=== PATIENT | female | born 1965 | race Caucasian/White ===

== ENCOUNTER 2024-06-11 06:35 | Inpatient (IN) ==
--- OUTSIDE RECORDS SUMMARY | 2024-06-11 06:39 | External Medical Summary | Summary of Care ---
Author Name Unknown Organization [facility] Address [address] [place] [address] Phone [phone] Care Team Providers Care Field Artillery Senior Sergeant Name Role Phone Jenn Pizarro MD Primary Care Provider + Reason for Visit * Reason Comments NEW PATIENT Cyst LLL * Evaluate & Treat - Unlimited Visits (Within 30 days (routine)) - Authorized Specialty Diagnoses / Procedures Referred By Kailey hernadez Referred To Contact Ophthalmology Diagnoses Eyelid disorder Oksana Chapin, OD [address] Hughes [address] [place] [address] Referral ID Status Reason Start Date Expiration Date Visits Requested Visits Authorized [id number] Authorized Specialty Services Required 05/03/2024 [id number] Encounter Details Date Type Department Care Team (Late st Contact Info) Description 05/10/2024 7:30 AM EDT Office Visit [address] [address] Arnoldo Marino, [address] [place] [phone] EIC (epidermal inclusion cyst)* Allergies Active Allergy Reactions Criticality Noted Date Comments Aspirin 08/02/2002 hives Cephalosporins 06/24/2003 Mefoxin Codeine Other (Please comment) 03/27/2013 Chest pain, vomiting Diclofenac Sodium 05/12/2010 Benzyl alcohol Difficulty breathing Gluten Other (Please comment) 10/20/2012 GI upset Latex Rash 05/17/2006 Rash turns to hives if does wash off Lubiprostone 08/24/2007 amitiza SOB/shakiness/vom iting Morphine And Codeine 08/02/2002 lorcet and codeine Omeprazole Hives,Nausea/vomitin g, Other (Please comment) 02/02/2022 Chest pain Oxycodone 07/03/2015 Penicillins 08/02/2002 hives Prednisone Diarrhea,Nausea/vomi ti ng,Psych complications 12/24/2016 Causes change in mental status Pantoprazole Sodium Sesquihydrate 09/17/2009 Chest discomfort, stomach cramping, rash on arms Sulfa Antibiotics 08/02/2002 rash documented as of this encounter (statuses as of 05/10/2024) Medications Medication Sig Dispensed Refills Start Date End Date Status LORATADINE 10 MG PO TABS Take by mouth. 06/25/2013 Active Spacer/Aero-Holding Chambers (AEROCHAMBER PLUS FLOW VU) inhaler Use as directed with your inhaler. 1 Each 10/16/2019 Active Acetaminophen 325 MG Oral Tablet (Tylenol) Take 2 Tabs by mouth every 6 hours as needed for Pain, Mild. 100 Tab 3 10/08/2020 Active SUMAtriptan Succinate 25 MG Oral Tablet (Imitrex)Indications:I ntractable migraine with aura without status migrainosus Take 2 tablets at onset of migraine and one tablet every 2 hours as needed, not more than 5 tablets in 24 hours 6 Tablet 11 05/25/2023 Active ProAir HFA 108 (90 Base) MCG/ACT Inhalation Aerosol SolutionIndications:Mi ld intermittent extrinsic asthma without complication Inhale 2 Puffs by mouth in the morning and 2 Puffs at noon and 2 Puffs in the evening and 2 Puffs before bedtime. 18 g 5 01/12/2024 Active Hospital, Clinic, or Other Facility Administered Medication Ordered Dose Route Frequency Start Date End Date Status lidocaine-epinephrine 2 %-1:536522 inj 100 mgIndications:EIC (epidermal inclusion cyst) 100 mg SC ONCE 05/10/2024 05/10/2024 Ended Erythromycin ophthalmic ointmentIndications:EIC (epidermal inclusion cyst) LEFT EYE ONCE 05/10/2024 05/10/2024 Ended documented as of this encounter (statuses as of 05/10/2024) Active Problems Problem Noted Date Diagnosed Date Trigger middle finger of left hand 04/20/2023 Pain of left hand 06/22/2022 Dupuytren's disease of palm 05/11/2022 Trigger index finger of left hand 12/30/2021 Sacroiliitis 10/16/2019 PAT (paroxysmal atrial tachycardia) 06/25/2019 Palpitations 06/25/2019 Hereditary hemochromatosis 10/12/2018 S/P spinal surgery 04/05/2017 Cervical spinal stenosis 04/05/2017 Hemochromatosis 09/17/2014 Protruded cervical disc 08/21/2012 NONALLERGIC RHINITIS 01/04/2006 Deviated nasal septum 01/04/2006 ADVANCE DIRECTIVE INFORMATION 10/07/2005 Overview: No, Advance Directive brochure offered , patient declined. Irritable bowel syndrome Endometriosis Allergic asthma documented as of this encounter (statuses as of 05/10/2024) Resolved Problems Problem Noted Date Diagnosed Date Resolved Date Asthma with severity to be determined 01/04/2006 02/08/2013 Overview: ICD-10 update of inactive term documented as of this encounter (statuses as of 05/10/2024) Immunizations Name Administration Dates Next Due COVID-19 mRNA, LNP-s, No Pre serve, 2-Dose Series (Pfizer) 11/08/2020,10/18/2020 HEPATITIS B VACCINE, RECOMB, 20 MCG/ML, ADULT (HEPLISAV-B) 12/21/2022,11/23/2022 PPD 02/05/2008 Pneumococcal Conjugate Vacci ne, 20-valent ([id number]) 11/23/2022 Pneumococcal Polysaccharide PPV23 (Pneumovax) 06/18/2009 Seasonal Influenza Vac., MDV , IM, 0.5 mL (Fluzone) 04/16/2015,06/20/2014,04/23/2013,06/06,07/05/2011,06/29/2010,08/04/2009 ,07/17/2007,07/18/2006 Seasonal Influenza Virus Vac cine, Unspecified Formulation 06/25/2020,07/19/2019,05/30/2018,10/07,06/20/2014,04/23/2013,06/06/2012 ,07/05/2011,06/29/2010,08/04/2009,07/01,07/18/2006 Seasonal Influenza, PF, 6 M & above, IM , (FluLaval or Fluzone) 06/25/2020,07/19/2019,05/30/2018 Seasonal Influenza, Quadriva lent, No Preserve, Mdck 10/07/2017 TD, Preservative Free 05/30/2018 TDAP (age 10 and older)(Boostrix) 05/30/2018 TDAP, Age 7 and older, IM (Adacel) 02/05/2008 Zoster Vaccine Recombinant (Shingrix) 10/16/2019 ,07/19/2019 documented as of this encounter Social History Tobacco Use Types Packs/Day Years Used Date Smoking Tobacco: Former Cigarettes 0.5 4 0 08/01/1984 - 08/01/1988 Smokeless Tobacco: Never Comments:no passive smoke ex posures at home Alcohol Use Standard Drinks/Week Comments No 0 (1 standard drink = 0.6 oz pur e alcohol) PHQ-2 Answer Date Recorded PHQ Adult Total Score 2 12/21/2022 Hunger Vital Sign Answer Date Recorded Within the past 12 months, y ou worried that your food would run out before you got the money to buy more. Never true 12/22/19 23 Within the past 12 months, t he food you bought just didn't last and you didn't have money to get more. Never true 12/21/2022 Sex and Gender Information Value Date Recorded Sex Assigned at Female 07/19/2019 10:30 AM EST Gender Identity Female 07/19/2019 10:30 AM EST Sexual Orientation Straight 07/19/2019 10 :30 AM EST Job Start Date Occupation Industry Not on file Not on file Not on file documented as of this encounter Progress Notes * Arnoldo Marino, - 05/10/2024 8:19 AM EDT Ani Atkins is a 58 year old female who presents for left eye lower eyelid evaluation. Patient reports a spot in her central left eye lower lid that has gotten larger than smaller waxes and waneswith time patient reports some scale and scabbing to the area because she chronically picks at it wanted it off. Ophthalmology Past History: glasses Ophthalmology Family History: none Ophthalmology ROS: Positive for lesion left lower lid and no recent significant change in vision,noeye pain, redness, discharge,no diplopia Current Ophthalmic Medications: None EXAM: Base Eye Exam Visual Acuity (Snellen - Linear) Right Left Dist cc 20/25 -1 20/30 Correction: Glasses Pupils Shape React APD Right Round Brisk None Left Round Brisk None Extraocular Movement Right Left Full Full Neuro/Psych Oriented x3: Yes Slit Lamp and Fundus Exam Slit Lamp Exam Right Left Lids/Lashes Normal Central lower lid lateral to midline with a small epidermal inclusion cyst Conjunctiva/Sclera White and quiet White and quiet Cornea Clear Clear Anterior Chamber Deep and quiet Deep and quiet Iris Round and reactive Round and reactive Lens NS NS IMPRESSION: 1. Apparent epidermal inclusion cyst left eye lower lid no aggressive features no loss of architecture PLAN: 1. Name: Ani Atkins Date: 05/10/2024 Outpatient Procedure Note: Pre op diagnosis: lesion of the left eye lower eyelid Post op Daignosis: same Procedure: excision of lesion left eye lower lid Surgeon: Jamila Anesthesia: 2% lidocaine with epinephrine 1:100k 1.0cc Complications: None EBL: none Drains: NONE Urine: NONE IVF: NONE Specimen: None Procedure: the patient was escorted to the procedure room where a time out was performed to identify the patient and verify the procedure. Alciane was instilled in the eye. A 30 gauge needle was used to introduce lidocaine under the lesion externally in the left eye lower eyelid. the patient was prepped and draped in routine aseptic fashion. The lesion was excised at the base with fabiana scissors. Hemostasis achieved with hot tip cautery. Emycin ointment applied. Recommend f/u PRN. Blood loss minimal . NO complications. Escorted from the procedure room. DO Arnoldo Min DO documented in this encounter Nursing Notes * Gloria Stanley RN - 05/10/2024 8:25 AM EDT Procedure completed without incident. Patient tolerated procedure well. Instructions reviewed with patient by Dr. Marino. Patient discharged from procedure room. * Gloria Stanley RN - 05/10/2024 8:24 AM EDT Patient admitted to procedure room at 8:00 AM and identified by full name and date of . Is patient on blood thinners? No. The operative team (Dr. Marino), along with Ms. Atkins, reviewed that she presents today for excision of lesion of left lower eyelid. Ms. Atkins agrees with the procedure and operative site. The correct operative site was marked and verified by the operative team. Ms. Atkins signed the surgical consent form as witnessed by the operative team. Patient prepped and drapped by Dr. Marino. * Gloria Stanley RN - 05/10/2024 7:22 AM EDT Ani Atkins is a 58 year old female who presents for cyst LLL. Last Visit: Visit date not found (in office), Visit date not found (telemedicine) She currently states area LLL present for the last several months. The last month has been getting worse. Are you diabetic? No Current Ophthalmic Medications: None Referred by: Dr. Chapin ([place]) [place], IOP, current eyeglass Rx, and pupil check and dilation if needed can be found in ophth exam. documented in this encounter Plan of Treatment Upcoming Encounters Date Type Department Care Team (Late st Contact Info) Description 08/14/2024 10:00 AM EST Laboratory Laboratory [facility] State Jade Olivares [address] [phone] [facility] [address] [place] [address] [address] 12/11/2024 3:15 PM EDT Office Visit Hematology/Oncology [place] Day [address] [phone] Delano Pizarro MD [address] [facility] [place] [address] 01/15/2025 7:40 AM EDT Office Visit General Internal Medicine [place] Day [address] [place], [place] [address] Jenn Pizarro MD [address] [facility] [place] [address] Scheduled Procedures Name Priority Associated Diagnoses Date/Ti me COLONOSCOPY FLEXIBLE PROXIMA L DIAGNOSTIC Recall Encounter for screening colonoscopy Health Maintenance Due Date Last Done Comments Cologuard 11/10/2012 Fecal Occult Blood Test 11/10/2012 Sigmoidoscopy 11/10/2012 Mammogram 12/09/2023 12/08/2022, 06/01, 11/06/2018, Additional history exists Depression Screening 12/22/2023 12/21/2022 COVID-19 Vaccine ( season) 2024 11/08/2020, 10/18/2020 Influenza Vaccine (FLU shot) (#1) 2024 06/25/2020, 06/25/2020, 07/19/2019, Additional history exists Diabetes Screening 05/08/2027 05/08/2024, 0 12/02/2021, 03/02/2021, Additional history exists Lipid Panel 11/24/2027 11/23/2022, 08/0 09/2020, 05/31/2018, Additional history exists DTap/Tdap Vaccines (4 - Td or Tdap) 05/30/2028 05/30/2018, 05/30/2018, 02/05/2008 Colonoscopy 09/04/2028 09/04/2018, 10/2018, 05/21/2011 Colorectal Cancer Screening 09/04/2028 Zoster Vaccines Completed 10/16/2019, 07/19/2019 Pneumococcal Vaccine: Pediatrics (0 to 5 Years) and At-Risk Patients (6 to 64 Years) Completed 11/23/2022, 06/18/2009 Hepatitis B Vaccine Completed 12/21/2022, 3 HPV (Gardasil) Vaccine Aged Out No lo nger eligible based on patient's age to complete this topic MENINGOCOCCAL (MENACTRA/MENVEO) Aged Out No longer eligible based on patient's age to complete this topic documented as of this encounter Medical Devices Not on filedocumented as of this encounter Visit Diagnoses Diagnosis EIC (epidermal inclusion cyst)- Primary Sebaceous cyst documented in this encounter Administered Medications Inactive Administered Medications - up to 3 most recent administrations Medication Order MAR Action Action Date Dose Rate Site Erythromycin ophthalmic ointment Left eye, ONCE, On Emily 05/10/24 at 0900, For 1 dose Given 05/10/2024 8:26 AM EDT 1 g Eye Left lidocaine-epinephrine 2 %-1:027704 inj 100 mg 100 mg (5 mL), Subcutaneous, ONCE, On Emily 05/10/24 at 0900, For 1 dose Given 05/10/2024 8:26 AM EDT 100 mg Eye L eft documented in this encounter Care Teams Field Artillery Senior Sergeant Relationship Specialty Start Date End Date Jenn Pizarro MD [address] [facility] [place] [address] PCP - General Internal Medicine 09/21/12 documented as of this encounter
--- OUTSIDE RECORDS SUMMARY | 2024-06-11 06:39 | External Medical Summary | Summary of Care ---
Author Name Unknown Organization [facility] Address [address] [place] [address] Phone [phone] Care Team Providers Care Food Writer Name Role Phone Jenn Pizarro MD Primary Care Provider + Reason for Visit * Reason Comments NEW PATIENT Cyst LLL * Evaluate & Treat - Unlimited Visits (Within 30 days (routine)) - Authorized Specialty Diagnoses / Procedures Referred By Kailey hernadez Referred To Contact Ophthalmology Diagnoses Eyelid disorder Oksana Chapin, OD [address] Hughes [address] [place] [address] Referral ID Status Reason Start Date Expiration Date Visits Requested Visits Authorized [id number] Authorized Specialty Services Required 05/03/[phone] Encounter Details Date Type Department Care Team (Late st Contact Info) Description 05/10/2024 7:30 AM EDT Office Visit [address] [address] Arnoldo Marino, [address] [place] [address] EIC (epidermal inclusion cyst)* Allergies Active Allergy [...] Start Date End Date Status lidocaine-epinephrine 2 %-1:445890 inj 100 mgIndications:EIC (epidermal inclusion cyst) 100 [...] PPD 02/05/2008 Pneumococcal Conjugate Vacci ne, 20-valent ([id number]) 11/23/2022 Pneumococcal Polysaccharide PPV23 (Pneumovax) 06/18/2009 Seasonal [...] Description 08/14/2024 10:00 AM EST Laboratory Laboratory [facility] State Jade Olivares [address] [place] [phone] [facility] [address] [place] [address] 12/11/2024 3:15 PM EDT Office Visit Hematology/Oncology [place] Day [address] [phone] Delano Pizarro MD 200 [facility] [place] [address] 01/15/2025 7:40 AM EDT Office Visit General Internal Medicine [place] Day [address] [place], [place] [address] Jenn Pizarro MD [address] [facility] [place] [address] Scheduled Procedures Name Priority Associated Diagnoses Date/Ti [...] EDT 1 g Eye Left lidocaine-epinephrine 2 %-1:799269 inj 100 mg 100 mg (5 mL), Subcutaneous, ONCE, On Emily 05/10/24 at 0900, For 1 dose Given 05/10/2024 8:26 AM EDT 100 mg Eye L eft documented in this encounter Care Teams Food Writer Relationship Specialty Start Date End Date Jenn Pizarro MD [address] [facility] [place] [address] PCP - General Internal Medicine 09/21/12 documented as of this encounter
--- OUTSIDE RECORDS SUMMARY | 2024-06-11 06:39 | External Medical Summary | Summary of Care ---
Author Name Unknown Organization [facility] Address [address] [place] [address] Phone [phone] Care Team Providers Care Cupola Worker Name Role Phone Jenn Pizarro MD Primary Care Provider + Reason for Visit * Reason Comments NEW PATIENT Cyst LLL * Evaluate & Treat - Unlimited Visits (Within 30 days (routine)) - Authorized Specialty Diagnoses / Procedures Referred By Kailey hernadez Referred To Contact Ophthalmology Diagnoses Eyelid disorder Oksana Chapin, OD [address] Hughes [address] [place] [phone] Referral ID Status Reason Start Date Expiration Date Visits Requested Visits Authorized [id number] Authorized Specialty Services Required 05/03/[phone] Encounter Details Date Type Department Care Team (Late st Contact Info) Description 05/10/2024 7:30 AM EDT Office Visit [address] [address] Arnoldo Marino, [address] [place] [address] EIC (epidermal inclusion cyst)* Allergies Active Allergy [...] Start Date End Date Status lidocaine-epinephrine 2 %-1:067123 inj 100 mgIndications:EIC (epidermal inclusion cyst) 100 [...] PPD 02/05/2008 Pneumococcal Conjugate Vacci ne, 20-valent ([id number]) 11/23/2022 Pneumococcal Polysaccharide PPV23 (Pneumovax) 06/18/2009 Seasonal [...] Description 08/14/2024 10:00 AM EST Laboratory Laboratory [facility] State Jade Olivares [address] [phone] [facility] [address] [place] [address] [address] 12/11/2024 3:15 PM EDT Office Visit Hematology/Oncology [place] Day [address] [phone] Delano Pizarro MD 200 [facility] [place] [address] 01/15/2025 7:40 AM EDT Office Visit General Internal Medicine [place] Day [address] [place], [place] [address] Jenn Pizarro MD [address] [facility] [place] [address] Scheduled Procedures Name Priority Associated Diagnoses Date/Ti [...] EDT 1 g Eye Left lidocaine-epinephrine 2 %-1:912307 inj 100 mg 100 mg (5 mL), Subcutaneous, ONCE, On Emily 05/10/24 at 0900, For 1 dose Given 05/10/2024 8:26 AM EDT 100 mg Eye L eft documented in this encounter Care Teams Cupola Worker Relationship Specialty Start Date End Date Jenn Pizarro MD [address] [facility] [place] [address] PCP - General Internal Medicine 09/21/12 documented as of this encounter
--- OUTSIDE RECORDS SUMMARY | 2024-06-11 06:40 | External Medical Summary ---
Author Name Unknown Address Unknown Organization K01:[facility] [address] [facility] [address] [place] [address] Laboratory Report Ordering Provider Test Date Status DELORES WARD 05/08/2024 13:52:14 Final Observation Date Value Abnormality Reference (Units ) Status Lipase 05/08/2024 13:52:14 27 13-60 (U/L ) Final Performing Location [facility] [address] [place] [address]
--- OUTSIDE RECORDS SUMMARY | 2024-06-11 06:40 | External Medical Summary ---
Author Name Unknown Address Unknown Organization K09:[facility] [place] [address] Laboratory Report Ordering Provider Test Date Status DELORES MALHOTRA 05/04/2024 08:03:04 Final Observation Date Value Abnormality Reference (Units ) Status WBC, Total 05/04/2024 08:03:04 4.66 4.00-10.8 0 (K/uL) Final RBC 05/04/2024 08:03:04 4.54 3.85-5.15 (M/uL) Final Hemoglobin 05/04/2024 08:03:04 14.8 12.0-15.3 (g/dL) Final HCT 05/04/2024 08:03:04 43.6 36.0-45.2 (%) Final MCV 05/04/2024 08:03:04 96.0 81.5-97.5 (fL) Final MCH 05/04/2024 08:03:04 32.6 27.0-34.0 (pg) Final MCHC 05/04/2024 08:03:04 33.9 32.0-36.0 (g/dL) Final RDW 05/04/2024 08:03:04 12.4 11.5-15.5 (%) Final Platelets 05/04/2024 08:03:04 202 140-400 (K /uL) Final MPV 05/04/2024 08:03:04 10.8 6.6-11.1 ( fL) Final Performing Location [facility] [place] [address]
--- OUTSIDE RECORDS SUMMARY | 2024-06-11 06:40 | External Medical Summary | Summary of Care ---
Author Name Unknown Organization [facility] Address [address] [place] [address] Phone [phone] Care Team Providers Care Legend Maker Name Role Phone Jenn Pizarro MD Primary Care Provider + Reason for Referral * Precert (Within 24 hrs (call dept; emergent)) - Pending Review Specialty Diagnoses / Procedures Referred By Contac t Referred To Contact Radiology Diagnoses Abdominal pain, epigastric Procedures CT ABD/PELVIS WO IV/ORAL CONTRAST Jenn Pizarro MD 200 [facility] [place] [address] Referral ID Status Reason Start Date Expiration Date V isits Requested Visits Authorized [id number] Pending Review 05/08/2024 999 999 Reason for Visit * Reason Comments Pain Encounter Details Date Type Department Care Team (Late st Contact Info) Description 05/08/2024 1:20 PM EDT Office Visit General Internal Medicine [facility] [place] [address] [place] [address] Jenn Pizarro MD [address] [place] [address] Abdominal pain, epigastric* Allergies Active Allergy Reactions Criticality Noted Date [...] as of this encounter (statuses as of 05/08/2024) Medications Medication Sig Dispensed Refills Start Date [...] before bedtime. 18 g 5 01/12/2024 Active documented as of this encounter (statuses as of 05/08/2024) Active Problems Problem Noted Date Diagnosed Date [...] as of this encounter (statuses as of 05/08/2024) Resolved Problems Problem Noted Date Diagnosed Date Resolved Date Asthma with severity to be determined 01/04/2006 02/08/2013 Overview: ICD-10 update of inactive term documented as of this encounter (statuses as of 05/08/2024) Immunizations Name Administration Dates Next Due COVID-19 mRNA, LNP-s, No Pre serve, 2-Dose Series ([employer] Recreation) 11/08/2020,10/18/2020 HEPATITIS B VACCINE, RECOMB, 20 MCG/ML, ADULT (HEPLISAV-B) 12/21/2022,11/23/2022 PPD 02/05/2008 Pneumococcal Conjugate Vacci ne, 20-valent ([id number]) 11/23/2022 Pneumococcal Polysaccharide PPV23 (Pneumovax) 06/18/2009 Seasonal [...] on file documented as of this encounter Last Filed Vital Signs Vital Sign Reading Time Taken Comments Blood Pressure 108/66 05/08/2024 1:17 PM EDT Pulse 105 05/08/2024 1:17 PM EDT Temperature 36.7 C (98 F) 05/08/2024 1:17 PM EDT Respiratory Rate - - Oxygen Saturation 96% 05/08/2024 1:17 PM EDT Inhaled Oxygen Concentration - - Weight 72.3 kg (159 lb 4.8 oz) 05/08/2024 1:17 P M EDT Height 163.2 cm (5' 4.25") 05/08/2024 1:17 PM ED T Body Mass Index 27.13 05/08/2024 1:17 PM EDT documented in this encounter Progress Notes * Jenn Pizarro MD - 05/08/2024 1:30 PM EDT Images from the original note were not included. History of Present Illness Ani Atkins is a 58 year old female that presents for Pain Here for the acute visit. Had mod to severe upper and mid abd pain for last 3 weeks off and on. No nausea, vomitting. Pain is 8/10 on scale. No urinary s/s. Excessive gas+ No fever but chills+ Physical Exam Vitals: 05/08/24 1317 Temp: 36.7 C (98 F) Pulse: 105 SpO2: 96% BP: 108/66 BMI: 27.13 BP Readings from Last 3 Encounters: 05/08/24 108/66 05/08/24 114/74 01/12/24 90/50 Wt Readings from Last 3 Encounters: 05/08/24 72.3 kg (159 lb 4.8 oz) 01/12/24 73.2 kg (161 lb 4.8 oz) 12/15/23 73.8 kg (162 lb 9.6 oz) BMI Readings from Last 3 Encounters: 05/08/24 27.13 kg/m 01/12/24 27.47 kg/m 12/15/23 28.13 kg/m Ht Readings from Last 3 Encounters: 05/08/24 1.632 m (5' 4.25") 01/12/24 1.632 m (5' 4.25") 06/16/23 1.619 m (5' 3.75") Abd- soft, tenderness moderate in upper and mid back. No flank tenderness. I have reviewed the following results: None Assessment and Plan Abdominal pain, epigastric (Primary) - COMPREHENSIVE METABOLIC PANEL; Future; Expected date: 05/08/2024 - LIPASE; Future; Expected date: 05/08/2024 - CT ABD/PELVIS WO IV/ORAL CONTRAST Advised pt to avoid caffeine, fried fatty foods, choclates, peppermints, smoking and alcohol. Exercise and weight loss emphasized. Eat dinner 3 hours prior to bed time. ER for eval if s/s gets worse. Advised hydration. Wrap-Up Time: I spent a total of 30-39 minutes (exact time 30 mins) on the date of service in preparation, delivery, and documentation of the care provided to Ani Atkins excluding any time spent in the performance of separately billed services. documented in this encounter Nursing Notes * Leia Escoto CMA - 05/08/2024 1:16 PM EDT Patient presents today for LUQ pain for the last 2 weeks. She states she is having some swelling inthe area and it is a new pain compared to previously having LLQ pain. She denies any nausea and vomiting, is having a lot of gas. documented in this encounter Plan of Treatment Upcoming Encounters Date Type Department Care Team (Late st Contact Info) Description 05/08/2024 4:15 PM EDT Imaging Radiology [address] 132 [facility] [place] [address] 05/10/2024 7:30 AM EDT Office Visit [facility] [address] [address] Arnoldo Marino, 16 [place] [address] 08/14/2024 10:00 AM EST Laboratory Laboratory [facility] [address] [place] [phone] [facility] 200 [facility] [place] [address] 12/11/2024 3:15 PM EDT Office Visit Hematology/Oncology [facility] [address] [place] [phone] Delano Pizarro MD [address] [place] [address] 01/15/2025 7:40 AM EDT Office Visit General Internal Medicine [facility] [address] [place] [address] Jenn Pizarro MD 200 [facility] [place] [address] Pending Results Name Type Priority Associated Diagnoses Date /Time COMPREHENSIVE METABOLIC PANEL Lab Routine Abdominal pain, epigastric 05/08/2024 1:52 PM EDT LIPASE Lab Routine Abdominal pain, epigastric 05/08/2024 1:52 PM EDT Scheduled Orders Name Type Priority Associated Diagnoses Orde r Schedule COMPREHENSIVE METABOLIC PANEL Lab Routine Abdominal pain, epigastric Expected: 05/08/2024 (Approximate), Expires: 05/08/2025 LIPASE Lab Routine Abdominal pain, epigastric Expected: 05/08/2024 (Approximate), Expires: 05/08/2025 CT ABD/PELVIS WO IV/ORAL CONTRAST Medical Imaging STAT Abdominal pain, epigastric Ordered: 05/08/2024 Scheduled Procedures Name Priority Associated Diagnoses Date/Ti [...] 06/25/2020, 07/19/2019, Additional history exists Diabetes Screening 12/02/2024 12/02/2021, 0 03/02/2021, 06/02/2020, Additional history exists Lipid Panel 11/24/2027 11/23/2022, 08/0 09/2020, 05/31/2018, Additional history exists DTap/Tdap Vaccines (4 - Td or Tdap) 05/30/2028 05/30/2018, 05/30/2018, 02/05/2008 Colonoscopy 09/04/2028 09/04/2018, 02/0 10/2018, 05/21/2011 Colorectal Cancer Screening 09/04/2028 Zoster [...] as of this encounter Visit Diagnoses Diagnosis Abdominal pain, epigastric- Primary documented in this encounter Care Teams Legend Maker Relationship Specialty Start Date End Date Jenn Pizarro MD [address] [place] [address] PCP - General Internal Medicine 09/21/12 documented as of this encounter
--- OUTSIDE RECORDS SUMMARY | 2024-06-11 06:40 | External Medical Summary | Summary of Care ---
Author Name Unknown Organization [facility] Address [address] [place] [address] Phone [phone] Care Team Providers Care Grey Goods Marker Name Role Phone Jenn Pizarro MD Primary Care Provider + Reason for Visit * Reason Comments Outpatient Testing Encounter Details Date Type Department Care Team (Late st Contact Info) Description 05/08/2024 1:50 PM EDT Laboratory Laboratory [facility] [place] [address] [place] [address] [place], Lab [address] [place] [address] Abdominal pain, epigastric Allergies Active Allergy Reactions Criticality Noted Date [...] PPD 02/05/2008 Pneumococcal Conjugate Vacci ne, 20-valent ([id number]) 11/23/2022 Pneumococcal Polysaccharide PPV23 (Pneumovax) 06/18/2009 Seasonal [...] on file documented as of this encounter Plan of Treatment Upcoming Encounters Date Type Department Care Team (Late st Contact Info) Description 05/08/2024 4:15 PM EDT Imaging Radiology [address] [place] [address] 05/10/2024 7:30 AM EDT Office Visit [facility] [address] [place] [address] Arnoldo Marino T, DO [address] [place] [address] 08/14/2024 10:00 AM EST Laboratory Laboratory [facility] [address] [place] [phone] [place], Lab [facility] [address] [place] [address] 12/11/2024 3:15 PM EDT Office Visit Hematology/Oncology [facility] [address] [place] [phone] Delano Pizarro MD [address] [place] [address] 01/15/2025 7:40 AM EDT Office Visit General Internal Medicine [facility] [address] [place] [address] Jenn Pizarro MD [address] [place] [address] Pending Results Name Type Priority Associated Diagnoses Date /Time COMPREHENSIVE METABOLIC PANEL Lab Routine Abdominal pain, epigastric 05/08/2024 1:52 PM EDT LIPASE Lab Routine Abdominal pain, epigastric 05/08/2024 1:52 PM EDT Scheduled Procedures Name Priority Associated Diagnoses Date/Ti [...] Additional history exists Lipid Panel 11/24/2027 11/23/2022, 08/09/2020, 05/31/2018, Additional history exists DTap/Tdap Vaccines (4 - Td or Tdap) 05/30/2028 05/30/2018, 05/30/2018, 02/05/2008 Colonoscopy 09/04/2028 09/04/2018, 0210/2018, 05/21/2011 Colorectal Cancer Screening 09/04/2028 Zoster Vaccines [...] this encounter Visit Diagnoses Diagnosis Abdominal pain, epigastric documented in this encounter Care Teams Grey Goods Marker Relationship Specialty Start Date End Date Jenn Pizarro MD 200 [facility] [place] [address] PCP - General Internal Medicine 09/21/12 documented as of this encounter
--- OUTSIDE RECORDS SUMMARY | 2024-06-11 06:40 | External Medical Summary | Summary of Care ---
Author Name Unknown Organization [facility] Address [address] [place] [address] Phone [phone] Care Team Providers Care Video Software Engineer Name Role Phone Jenn Pizarro MD Primary Care Provider + Reason for Visit * Reason Onset Date Comments Test Results Lab 05/07/2024 Encounter Details Date Type Department Care Team (Late st Contact Info) Description 05/07/2024 Telephone Hematology/Oncology [facility] [address] [place] [address] Delano Pizarro MD [address] [facility] [address] Test Results Lab Allergies Active Allergy Reactions Criticality Noted Date [...] as of this encounter (statuses as of 05/07/2024) Medications Medication Sig Dispensed Refills Start Date [...] as of this encounter (statuses as of 05/07/2024) Active Problems Problem Noted Date Diagnosed Date [...] as of this encounter (statuses as of 05/07/2024) Resolved Problems Problem Noted Date Diagnosed Date Resolved Date Asthma with severity to be determined 01/04/2006 02/08/2013 Overview: ICD-10 update of inactive term documented as of this encounter (statuses as of 05/07/2024) Immunizations Name Administration Dates Next Due COVID-19 mRNA, LNP-s, No Pre serve, 2-Dose Series (Pfizer) 11/08/2020,10/18/2020 HEPATITIS B VACCINE, RECOMB, 20 MCG/ML, ADULT (HEPLISAV-B) 12/21/2022,11/23/2022 PPD 02/05/2008 Pneumococcal Conjugate Vacci ne, 20-valent ([id number]) 11/23/2022 Pneumococcal Polysaccharide PPV23 (Pneumovax) 06/18/2009 Seasonal [...] on file documented as of this encounter Miscellaneous Notes * Telephone Encounter - Nazia Mora LPN - 05/07/2024 1:56 PM EDT Called and spoke with patient, informed patient of test result message from provider below. She verbalized understanding and is agreeable to scheduling the phlebotomy. Patient states she is going to [place] on , patient is requesting phlebotomy tomorrow due to "feeing drained" a day after the procedure. Patient scheduled phlebotomy x 1 tomorrow at 12:00 pm. She denies any further needs or requests. * Telephone Encounter - Nazia Mora LPN - 05/07/2024 1:44 PM EDT ----- Message from Delano Pizarro MD sent at 05/07/2024 10:05 AM EDT ----- Blood workup done on 05/04/2024: - Ferritin level -> 78 - WBC 4600, H&H of 14.8/40.6, platelet count of 202,000. 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 Would like to keep the ferritin level less than 50. Repeat CBCD ferritin every 3 monthly and she should have phlebotomy if the ferritin level is above 50. documented in this encounter Plan of Treatment Upcoming Encounters Date Type Department Care Team (Late st Contact Info) Description 05/08/2024 12:00 PM EDT Hem/Onc Treatment Hematology/Oncology Located Within [facility] [address] [place] [phone] Elise, Chair 11 Hem Onc [facility] 200 [facility] [place] [address] 05/10/2024 7:30 AM EDT Office Visit [facility] [address] [place] [address] Arnoldo Marino, 16 [place] [address] 12/11/2024 3:15 PM EDT Office Visit Hematology/Oncology [facility] [address] [place] [phone] Delano Pizarro MD 200 [facility] [place] [address] 01/15/2025 7:40 AM EDT Office Visit General Internal Medicine [facility] 200 [facility] [place] [address] Jenn Pizarro MD 200 [facility] [place] [address] Scheduled Orders Name Type Priority Associated Diagnoses Orde r Schedule CBC WITH WBC DIFFERENTIAL Lab STAT Hereditary hemochromatosis (HCC) Every 3 Months for 4 Occurrences starting 05/07/2024 until 05/07/2025 FERRITIN Lab Routine Hereditary hemochromatosis (HCC) Every 3 Months for 4 Occurrences starting 05/07/2024 until 05/07/2025 Scheduled Procedures Name Priority Associated Diagnoses Date/Ti [...] as of this encounter Visit Diagnoses Diagnosis Hereditary hemochromatosis (HCC)- Primary Hereditary hemochromatosis Thrombocytopenia, congenital and hereditary (HCC) Congenital and hereditary thrombocytopenic purpura Erythrocytosis Polycythemia, secondary documented in this encounter Care Teams Video Software Engineer Relationship Specialty Start Date End Date Jenn Pizarro MD 200 [facility] [place] [address] PCP - General Internal Medicine 09/21/12 documented as of this encounter
--- OUTSIDE RECORDS SUMMARY | 2024-06-11 06:40 | External Medical Summary ---
Author Name Unknown Address Unknown Organization K01:[facility] [address] [place] [address] Laboratory Report Ordering Provider Test Date Status DELORES MALHOTRA 05/04/2024 08:03:04 Final Observation Date Value Abnormality Reference (Units ) Status Ferritin 05/04/2024 08:03:04 78 13-150 (ng /mL) Final Postmenopausal women have hi gher ferritin levels than pre-menopausal women. The above reference interval is based on pre-menopausal women. Performing Location [facility] - [address] [place] [address]
--- OUTSIDE RECORDS SUMMARY | 2024-06-11 06:40 | External Medical Summary | Summary of Care ---
Author Name Unknown Organization [facility] Address [address] [place] [address] Phone [phone] Care Team Providers Care Ophthalmic Asst Name Role Phone Sylvia Pizarro MD Primary Care Provider + Reason for Referral * Precert (Within 24 hrs (call dept; emergent)) - Pending Review Specialty Diagnoses / Procedures Referred By Contac t Referred To Contact Radiology Diagnoses Abdominal pain, epigastric Procedures CT ABD/PELVIS W IV CONTRAST - WO ORAL CONTRAST Sylvia Pizarro MD [address] [place] [address] Referral ID Status Reason Start Date Expiration Date V isits Requested Visits Authorized [id number] Pending Review 05/08/2024 999 999 * Precert (Within 24 hrs (call dept; emergent)) - Authorized Specialty Diagnoses / Procedures Referred By Contac t Referred To Contact Radiology Diagnoses Abdominal pain, epigastric Procedures CT ABD/PELVIS WO IV/ORAL CONTRAST Sylvia Pizarro MD [address] [place] [address] Referral ID Status Reason Start Date Expiration Date V isits Requested Visits Authorized [id number] Authorized Precert 05/08/2024 11/04/2024 999 999 Reason for Visit * Reason Comments Pain Encounter Details Date Type Department Care Team (Late st Contact Info) Description 05/08/2024 1:20 PM EDT Office Visit General Internal Medicine [facility] [place] [address] [place] [address] Sylvia Pizarro MD [address] [facility] [place], [place] [address] Abdominal pain, epigastric* Allergies Active Allergy Reactions [...] mRNA, LNP-s, No Pre serve, 2-Dose Series (Captalis) 11/08/2020,10/18/2020 HEPATITIS B VACCINE, RECOMB, 20 MCG/ML, ADULT (HEPLISAV-B) 12/21/2022,11/23/2022 PPD 02/05/2008 Pneumococcal Conjugate Vacci ne, 20-valent ([id number]) 11/23/2022 Pneumococcal Polysaccharide PPV23 (Pneumovax) 06/18/2009 Seasonal [...] documented in this encounter Progress Notes * Sylvia Pizarro MD - 05/08/2024 1:30 PM EDT [...] (98 F) Pulse: 105 SpO2: 96% BP: 108/ BMI: 27.13 BP Readings from Last 3 [...] lot of gas. documented in this encounter Miscellaneous Notes * Addendum Note - Sylvia Pizarro MD - 05/08/2024 3:54 PM EDTAddended by: SYLVIA PIZARRO on: 05/08/2024 03:54 PM Modules accepted: Orders documented in this encounter Plan of Treatment Upcoming Encounters Date Type Department Care Team (Late st Contact Info) Description 05/08/2024 4:15 PM EDT Imaging Radiology [facility], [address] [place] [address] Arrived 05/10/2024 7:30 AM EDT Office Visit [address] [place] [address] Arnoldo Marino, 16 [facility] [place] [address] 08/14/2024 10:00 AM EST Laboratory Laboratory [facility] [address] [place], [place] [phone] [place], [facility] 200 [facility] [place], [place] [address] 12/11/2024 3:15 PM EDT Office Visit Hematology/Oncology [facility] 200 [facility] [place], [place] [phone] Delano Pizarro MD 200 [facility] [place] [address] 01/15/2025 7:40 AM EDT Office Visit General Internal Medicine [facility] [address] [place], [place] [address] Sylvia Pizarro MD 200 [place] [address] Pending Results Name Type Priority Associated Diagnoses Date /Time LIPASE Lab Routine Abdominal pain, epigastric 05/08/2024 1:[address] ABD/PELVIS WO IV/ORAL CONTRAST Medical Imaging STAT Abdominal pain, epigastric 05/08/2024 3:34 PM EDT Scheduled Orders Name Type Priority Associated Diagnoses Orde r Schedule LIPASE Lab Routine Abdominal pain, epigastric Expected: 05/08/2024 (Approximate), Expires: 05/08/2025 CT ABD/PELVIS W IV CONTRAST - WO ORAL CONTRAST Medical Imaging STAT Abdominal pain, epigastric [...] Additional history exists Lipid Panel 11/24/2027 11/23/2022, 0809/2020, 05/31/2018, Additional history exists DTap/Tdap Vaccines (4 - Td or Tdap) 05/30/2028 05/30/2018, 05/30/2018, 02/05/2008 Colonoscopy 09/04/2028 09/04/2018, 10/2018, 05/21/2011 Colorectal Cancer Screening 09/04/2028 Zoster Vaccines Completed 10/16/2019, 07/19/2019 Pneumococcal Vaccine: Pediatrics (0 to 5 Years) and At-Risk Patients (6 to 64 Years) Completed 11/23/2022, 06/18/2009 Hepatitis B Vaccine Completed 12/21/2022, HPV (Gardasil) Vaccine Aged Out No lo nger eligible based on patient's age to complete this topic MENINGOCOCCAL (MENACTRA/MENVEO) Aged Out No longer eligible based on patient's age to complete this topic documented as of this encounter Medical Devices Not on filedocumented as of this encounter Results * (ABNORMAL) COMPREHENSIVE METABOLIC PANEL (05/08/2024 1:52 PM EDT) BUN 11 6 - 20 mg/dL 05/08/2024 3:17 PM EDT [facility] [place] [facility] CREATININE 0.8 0.5 - 1.0 mg/dL 05/08/2024 3:17 PM EDT [facility] [place] [facility] EGFR 88 >=60 mL/min 05/08/2024 3:17 PM EDT [facility] [place] [facility] Comment:eGFR is calculated b ased on the CKD-EPI 2020 equation. SODIUM 141 135 - 146 mmol/L 05/08/2024 3:17 PM EDT [facility] [place] [facility]02 POTASSIUM 4.2 3.5 - 5.1 mmol/L 05/08/2024 3:17 PM EDT [facility] 56 CHLORIDE 104 98 - 107 mmol/L 05/08/2024 3:[address] CO2 25 22 - 32 mmol/L 05/08/2024 3:[address] ANION GAP 12 7 - 15 mmol/L 05/08/2024 3:[address] GLUCOSE 101 70 - 120 mg/dL 05/08/2024 3:[address] Albumin 4.8 3.8 - 5.0 g/dL 05/08/2024 3:[address] AST 16 10 - 35 U/L 05/08/2024 3:[address] Alkaline Phosphatase 141(H) 35 - 130 U/L 05/08/2024 3:[address] Bilirubin, Total 0.4 <=1.2 mg/dL 05/08/2024 3:[address] CALCIUM 9.8 8.4 - 10.2 mg/dL 05/08/2024 3:[address] Protein 7.0 6.0 - 8.3 g/dL 05/08/2024 3:[address] ALT 14 10 - 35 U/L 05/08/2024 3:17 PM EDT [facility] 56 Blood Venous blood specimen / Unknown Venipuncture / Unknown 05/08/2024 1:52 PM EDT 05/08/2024 1:52 PM EDT Sylvia Pizarro MD LAB BLOOD ORDERA BLES [facility] 56 [facility] [id number] documented in this encounter Visit Diagnoses Diagnosis Abdominal pain, epigastric- Primary documented in this encounter Care Teams Ophthalmic Asst Relationship Specialty Start Date End Date Sylvia Pizarro MD [address] [facility] [place] [id number] PCP - General Internal Medicine 09/21/12 documented as of this encounter
--- OUTSIDE RECORDS SUMMARY | 2024-06-11 06:40 | External Medical Summary | Summary of Care ---
Author Name Unknown Organization [facility] Address [address] [place] [address] Phone [phone] Care Team Providers Care Medicare Insurance Specialist Name Role Phone Jenn Pizarro MD Primary Care Provider + Encounter Details Date Type Department Care Team (Late st Contact Info) Description 02/20/2024 Orders Only Outcomes Research Department [address] [place] [address] Elisabeth Leslie CHRA MyCode Research Other*[id number] Allergies Active Allergy Reactions Criticality Noted Date [...] as of this encounter (statuses as of 02/20/2024) Medications Medication Sig Dispensed Refills Start Date [...] as of this encounter (statuses as of 02/20/2024) Active Problems Problem Noted Date Diagnosed Date [...] as of this encounter (statuses as of 02/20/2024) Resolved Problems Problem Noted Date Diagnosed Date Resolved Date Asthma with severity to be determined 01/04/2006 02/08/2013 Overview: ICD-10 update of inactive term documented as of this encounter (statuses as of 02/20/2024) Immunizations Name Administration Dates Next Due COVID-19 mRNA, LNP-s, No Pre serve, 2-Dose Series (Pfizer) 11/08/2020,10/18/2020 Hepatitis B Vaccine, Recombi nant, Adjuvanted, 20 mcg/mL (Heplisav-B) 12/21/2022,11/23/2022 PPD 02/05/2008 Pneumococcal Conjugate Vacci ne, 20-valent ([id number]) 11/23/2022 Pneumococcal Polysaccharide PPV23 (Pneumovax) 06/18/2009 Seasonal Influenza Virus Vac cine, Unspecified Formulation 06/25/2020,07/19/2019,05/30/2018,10/07,06/20/2014,04/23/2013,06/06/2012 ,07/05/2011,06/29/2010,08/04/2009,07/01,07/18/2006 Seasonal Influenza, PF, 6 M & above, IM , (FluLaval or Fluzone) 06/25/2020,07/19/2019,05/30/2018 Seasonal Influenza, Quadriva lent, No Preserve, Mdck 10/07/2017 Seasonal Influenza, Split, I IV3, With Preserve, Inj 04/16/2015,06/20/2014,04/23/2013,06/06,07/05/2011,06/29/2010,08/04/2009 ,07/17/2007,07/18/2006 TD, Preservative Free 05/30/2018 TDAP (age 10 [...] Care Team (Late st Contact Info) Description 02/27/2024 11:00 AM EDT [facility] [address] [facility] [place] [address] Tammy Villagomez DPM [address] [facility] [place] [address] 02/29/2024 9:30 AM EDT Imaging Radiology [address] 132 [facility] [place] [address] 05/04/2024 8:00 AM EDT Laboratory Laboratory [facility] [address] [place] [id number] [place], [place] [address] [address] [place] [address] 06/19/2024 3:15 PM EST Office Visit Hematology/Oncology [facility] [address] [place] [phone] Delano Pizarro MD [address] [place] [address] 01/15/2025 7:40 AM EDT Office Visit General Internal Medicine [facility] [address] [place] [address] Jenn Pizarro MD [address] [place] [address] Scheduled Orders Name Type Priority Associated Diagnoses Orde r Schedule MYCODE SUBSEQUENT ADULT Lab Routine MyCode Research Other*[id number] Every 6 Months for 2 Occurrences starting 02/20/2024 until 03/11/2025 Scheduled Procedures Name Priority Associated Diagnoses Date/Ti me COLONOSCOPY FLEXIBLE PROXIMA L DIAGNOSTIC Recall Encounter for screening colonoscopy Health Maintenance Due Date Last Done Comments Cologuard 11/10/2012 Fecal Occult Blood Test 11/10/2012 Sigmoidoscopy 11/10/2012 COVID-19 Vaccine ( season) 2023 11/08/2020, 10/18/2020 Mammogram 12/09/2023 12/08/2022, 06/01, 11/06/2018, Additional history exists Depression Screening 12/22/2023 12/21/2022 Influenza Vaccine (FLU shot) (#1) 2024 06/25/2020, 06/25/2020, 07/19/2019, Additional history exists Diabetes Screening 12/02/2024 12/02/2021, 0 03/02/2021, 06/02/2020, Additional history exists Lipid Panel 11/24/2027 11/23/2022, 08/0 09/2020, 05/31/2018, Additional history exists DTaP,Tdap,and Td Vaccines (4 - Td or Tdap) 05/30/2028 [...] as of this encounter Visit Diagnoses Diagnosis MyCode Research Other*[id number] documented in this encounter Care Teams Medicare Insurance Specialist Relationship Specialty Start Date End Date Jenn Pizarro MD [address] [place] [address] PCP - General Internal Medicine 09/21/12 documented as of this encounter
--- OUTSIDE RECORDS SUMMARY | 2024-06-11 06:40 | External Medical Summary | Summary of Care ---
Author Name Unknown Organization [facility] Address [address] [place] [address] Phone [phone] Care Team Providers Care Printing Supervisor Name Role Phone Jenn Pizarro MD Primary Care Provider + Reason for Visit * Reason Comments Outpatient Testing Encounter Details Date Type Department Care Team (Latest Contact Info) Description 05/04/2024 8:00 AM EDT Laboratory Laboratory [facility] [place] [address] [place] [phone] [place], [address] [place] [address] Hereditary hemochromatosis (HCC) Allergies Active Allergy Reactions Criticality Noted Date [...] as of this encounter (statuses as of 05/04/2024) Medications Medication Sig Dispensed Refills Start Date [...] as of this encounter (statuses as of 05/04/2024) Active Problems Problem Noted Date Diagnosed Date [...] as of this encounter (statuses as of 05/04/2024) Resolved Problems Problem Noted Date Diagnosed Date Resolved Date Asthma with severity to be determined 01/04/2006 02/08/2013 Overview: ICD-10 update of inactive term documented as of this encounter (statuses as of 05/04/2024) Immunizations Name Administration Dates Next Due COVID-19 mRNA, LNP-s, No Pre serve, 2-Dose Series (Pfizer) 11/08/2020,10/18/2020 HEPATITIS B VACCINE, RECOMB, 20 MCG/ML, ADULT (HEPLISAV-B) 12/21/2022,11/23/2022 PPD 02/05/2008 Pneumococcal Conjugate Vacci ne, 20-valent ([id number]) 11/23/2022 Pneumococcal Polysaccharide PPV23 (Pneumovax) 06/18/2009 Seasonal [...] Description 05/10/2024 7:30 AM EDT Office Visit [address] [address] Arnoldo Marino, [address] [place] [address] 12/11/2024 3:15 PM EDT Office Visit Hematology/Oncology [facility] [address] [place] [phone] Delano Pizarro MD [address] [facility] [place] [address] 01/15/2025 7:40 AM EDT Office Visit General Internal Medicine [facility] [address] [place] [address] Jenn Pizarro MD [address] [facility] [place] [address] Pending Results Name Type Priority Associated Diagnoses Date /Time CBC WITH WBC DIFFERENTIAL Lab Routine Hereditary hemochromatosis (HCC) 05/04/2024 8:03 AM EDT FERRITIN Lab Routine Hereditary hemochromatosis (HCC) 05/04/2024 8:03 AM EDT CBC Lab Routine Hereditary hemochromatosis (HCC) 05/04/2024 8:03 AM EDT DIFFERENTIAL, AUTOMATED Lab Routine Hereditary hemochromatosis (HCC) 05/04/2024 8:03 AM EDT Scheduled Procedures Name Priority Associated Diagnoses [...] this encounter Visit Diagnoses Diagnosis Hereditary hemochromatosis (HCC) Hereditary hemochromatosis documented in this encounter Care Teams Printing Supervisor Relationship Specialty Start Date End Date Jenn Pizarro MD [address] [place] [address] PCP - General Internal Medicine 09/21/12 documented as of this encounter
--- OUTSIDE RECORDS SUMMARY | 2024-06-11 06:40 | External Medical Summary | Summary of Care ---
Author Name Unknown Organization [facility] Address [address] [place] [address] Phone [phone] Care Team Providers Care Test Cell Technician Name Role Phone Jenn Pizarro MD Primary Care Provider + Reason for Visit * Reason Comments Procedure Phlebotomy Encounter Details Date Type Department Care Team (Latest Contact Info) Description 05/08/2024 12:00 PM EDT Hem/Onc Treatment Hematology/Oncolog y Treatment, [place] [address] [place] [address] Elise, Chair 11 Hem Onc Scenery [address] [place] [address] Hemochromatosis*; Hereditary hemochromatosis (HCC) Allergies Active Allergy Reactions [...] PPD 02/05/2008 Pneumococcal Conjugate Vacci ne, 20-valent ([id number]) 11/23/2022 Pneumococcal Polysaccharide PPV23 (Pneumovax) 06/18/2009 Seasonal [...] money to buy more. Never true 12/22/19 Within the past 12 months, t he [...] Sign Reading Time Taken Comments Blood Pressure 114/74 05/08/2024 12:39 PM EDT Pulse 87 05/08/2024 12:12 PM EDT Temperature 36.5 C (97.7 F) 05/08/2024 12:12 PM E DT Respiratory Rate 18 05/08/2024 12:12 PM EDT Oxygen Saturation 98% 05/08/2024 12:12 PM EDT Inhaled Oxygen Concentration - - Weight - - Height - - Body Mass Index - - documented in this encounter Nursing Notes * Loreto Loyola, ABI - 05/08/2024 12:13 PM EDT Patient to chair 7 ambulatory Patient denies any complaints or concerns Safety and Risk for Injury Patient will remain free from injury. Ensure appropriate safety devices are available. Provide and maintain safe environment. Patient instructed on use of heat and massage functions where applicable. Patient shown how to operate the heat function of the chair and to alert nursing staff if the chair feels too warm. Patient instructed on the risk of potential shabazz while using the heat function. Goals: patient will remain free of injury Possible barriers to meeting goals: dizzy due to blood loss, increase risk of falling Stability of the patient: Moderately stable - low risk of patient condition declining or worsening Summary regarding today's goals: Met: Patient remained free of injury #18G Instye with t-extension inserted into the left AC without difficulty. Therapeutic phlebotomy performed per order. Patient tolerated procedure well. Drank cup of fluid post procedure. Encouraged to increase fluid intake. IV discontinued intact and patient discharged in stable condition. documented in this encounter Plan of Treatment Upcoming Encounters Date Type Department Care Team (Late st Contact Info) Description 05/10/2024 7:30 AM EDT Office Visit [facility] [address] [place] [address] Arnoldo Marino, [address] [place] [address] 08/14/2024 10:00 AM EST Laboratory Laboratory [facility] [place] 200 [facility] [place] [phone] [address] [place] [address] 12/11/2024 3:15 PM EDT Office Visit Hematology/Oncology [facility] [address] [facility] [place] [phone] Delano Pizarro MD [address] [facility] [address] [place] [address] 01/15/2025 7:40 AM EDT Office Visit General Internal Medicine [facility] [address] [facility] [place] [address] Jenn Pizarro MD [address] [facility] [place] [address] Scheduled Procedures Name Priority Associated Diagnoses Date/Ti [...] as of this encounter Visit Diagnoses Diagnosis Hemochromatosis- Primary Other hemochromatosis Hereditary hemochromatosis (HCC) Hereditary hemochromatosis documented in this encounter Care Teams Test Cell Technician Relationship Specialty Start Date End Date Jenn Pizarro MD [address] [place] [address] PCP - General Internal Medicine 09/21/12 documented as of this encounter
--- OUTSIDE RECORDS SUMMARY | 2024-06-11 06:40 | External Medical Summary ---
Author Name Unknown Address Unknown Organization [facility] [address] [place] [address] Laboratory Report Ordering Provider Test Date Status DELORES WARD 05/08/2024 13:52:14 Final Observation Date Value Abnormality Reference (Units ) Status BUN 05/08/2024 13:52:14 11 6-20 (mg/dL) Final Creatinine 05/08/2024 13:52:14 0.8 0.5-1.0 (mg/dL) Final Glomerular filtration rate/1.73 sq M.predicted [Volume Rate/Area] in Serum, Plasma or Blood by Creatinine-based formula (CKD-EPI) 05/08/2024 13:52:14 88 >=60 (mL/min) Final eGFR is calculated based on the CKD-EPI 2020 equation. Sodium 05/08/2024 13:52:14 141 135-146 (m mol/L) Final Potassium 05/08/2024 13:52:14 4.2 3.5-5.1 (m mol/L) Final Cl 05/08/2024 13:52:14 104 98-107 (mm ol/L) Final CO2 05/08/2024 13:52:14 25 22-32 (mmo l/L) Final Anion gap 05/08/2024 13:52:14 12 7-15 (mmol /L) Final Glucose 05/08/2024 13:52:14 101 70-120 (mg /dL) Final Albumin 05/08/2024 13:52:14 4.8 3.8-5.0 (g /dL) Final AST (Aspartate aminotransferase) 05/08/2024 13:52:14 16 10-35 (U/L) Fin al Alk Phos 05/08/2024 13:52:14 141 Above high normal 35 -130 (U/L) Final Bilirubin, Total 05/08/2024 13:52:14 0.4 <=1 .2 (mg/dL) Final Calcium 05/08/2024 13:52:14 9.8 8.4-10.2 ( mg/dL) Final Protein 05/08/2024 13:52:14 7.0 6.0-8.3 (g /dL) Final ALT (Alanine aminotransferase) 05/08/2024 13:52:14 14 10-35 (U/L) Braydon shanks Performing Location [facility] [address] [place] [address]
--- OUTSIDE RECORDS SUMMARY | 2024-06-11 06:40 | External Medical Summary ---
Author Name Unknown Address Unknown Organization [facility] [place] [address] Laboratory Report Ordering Provider Test Date Status DELORES MALHOTRA 05/04/2024 08:03:04 Final Observation Date Value Abnormality Reference (Units ) Status SYNC LEUKOCYTES IN BLOOD BY AUTOMATED COUNT 05/04/2024 08:03:04 4.66 4.00-10.80 (K/uL) Final Segs 05/04/2024 08:03:04 47.6 40.0-75.0 (%) Final Lymphs % 05/04/2024 08:03:04 39.5 18.0-42.0 (%) Final Monos 05/04/2024 08:03:04 11.2 Above high normal 1.0-11.0 (%) Final Eosinophils 05/04/2024 08:03:04 1.3 0.0-6.0 (%) Final Basos 05/04/2024 08:03:04 0.4 0.0-2.0 (%) Final Absolute Segs 05/04/2024 08:03:04 2.22 1.80-7.70 (K/uL) Final Lymphs, absolute 05/04/2024 08:03:04 1.84 1.00-4.80 (K/ul) Final Monos, Abs 05/04/2024 08:03:04 0.52 0.00-1.10 (K/uL) Final Eos, Abs 05/04/2024 08:03:04 0.06 0.00-0.70 (K/uL) Final Basos, Abs 05/04/2024 08:03:04 0.02 0.00-0.20 (K/uL) Final Performing Location [place] [place] [address]
--- OUTSIDE RECORDS SUMMARY | 2024-06-11 06:41 | External Medical Summary | Summary of Care ---
Author Name Unknown Organization [facility] Address [address] [place] [address] Phone [phone] Care Team Providers Care Building Trades Instructor Name Role Phone Jenn Pizarro MD Primary Care Provider + Reason for Visit * Reason Comments Follow Up Encounter Details Date Type Department Care Team (Latest Contact Info) Description 12/15/2023 3:15 PM EDT Office Visit Hematology/Oncology [facility] [place] [address] [facility] [place] [address] Delano Pizarro MD [address] [facility] [address] Hereditary hemochromatosis (HCC)*; Elevated alkaline phosphatase level Allergies Active Allergy Reactions Criticality Noted Date Comments Aspirin 08/02/2002 hives Cephalosporins 06/24/2003 Mefoxin Codeine Other (Please comment) 03/27/2013 Chest pain, vomiting Diclofenac Sodium 05/12/2010 Benzyl alcohol Difficulty breathing Gluten Other (Please comment) 10/20/2012 GI upset Latex Rash 05/17/2006 Rash turns to hives if does wash off Lubiprostone 08/24/2007 amitiza SOB/shakiness/vom iting Morphine And Related 08/02/2002 lorcet and codeine Omeprazole Hives,Nausea/vomitin g, Other (Please comment) 02/02/2022 Chest pain Oxycodone 07/03/2015 Penicillins 08/02/2002 hives Prednisone Diarrhea,Nausea/vomi ti ng,Psych complications 12/24/2016 Causes change in mental status Pantoprazole Sodium Sesquihydrate 09/17/2009 Chest discomfort, stomach cramping, rash on arms Sulfa Antibiotics 08/02/2002 rash documented as of this encounter (statuses as of 12/15/2023) Medications Medication Sig Dispensed Refills Start Date End Date Status LORATADINE 10 MG PO TABS Take by mouth. 0 06/25/2013 Active Spacer/Aero-Holding Chambers (AEROCHAMBER PLUS FLOW VU) inhaler Use as directed with your inhaler. 1 Each 0 10/16/2019 Active Acetaminophen 325 MG Oral Tablet (Tylenol) Take 2 Tabs by mouth every 6 hours as needed for Pain, Mild. 100 Tab 3 10/08/2020 Active ProAir HFA 108 (90 Base) MCG/ACT Inhalation Aerosol Solution Inhale by mouth 2 Puffs 4 times a day . 18 g 5 02/04/2022 Active Additional Information Patient taking differently:2 Puff Inhalation QID(AM/NOON/PM/HS),Indications: as needed, Reported on 11/18/2022 SUMAtriptan Succinate 25 MG Oral Tablet (Imitrex)Indications :Intractable migraine with aura without status migrainosus Take 2 tablets at onset of migraine and one tablet every 2 hours as needed, not more than 5 tablets in 24 hours 6 Tablet 11 05/25/2023 Active documented as of this encounter (statuses as of 12/15/2023) Active Problems Problem Noted Date Diagnosed Date [...] as of this encounter (statuses as of 12/15/2023) Resolved Problems Problem Noted Date Diagnosed Date Resolved Date Asthma with severity to be determined 01/04/2006 02/08/2013 Overview: ICD-10 update of inactive term documented as of this encounter (statuses as of 12/15/2023) Immunizations Name Administration Dates Next Due COVID-19 mRNA, LNP-s, No Pre serve, 2-Dose Series (Pfizer) 11/08/2020,10/18/2020 Hepatitis B Vaccine, Recombi nant, Adjuvanted, 20 mcg/mL (Heplisav-B) 12/21/2022,11/23/2022 PPD 02/05/2008 Pneumococcal Conjugate Vacci ne, 20-valent (Rhgstra06) 11/23/2022 Pneumococcal Polysaccharide PPV23 (Pneumovax) 06/18/2009 Seasonal Influenza Virus Vac cine, Unspecified Formulation 06/25/2020,07/19/2019,05/30/2018,10/07,06/20/2014,04/23/2013,06/06/2012 ,07/05/2011,06/29/2010,08/04/2009,07/01,07/18/2006 Seasonal Influenza, PF, 6 M & above, IM , (FluLaval or Fluzone) 06/25/2020,07/19/2019,05/30/2018 Seasonal Influenza, Quadriva lent, No Preserve, Mdck 10/07/2017 Seasonal Influenza, Split, I IV3, With Preserve, Inj 04/16/2015,06/20/2014,04/23/2013,06/06,07/05/2011,06/29/2010,08/04/2009 ,07/17/2007,07/18/2006 TD, Preservative Free 05/30/2018 TDAP (age 10 and older)(Boostrix) 05/30/2018 TDAP (age 11 and older)(Adacel) 02/05/2008 Zoster Vaccine Recombinant (Shingrix) 10/16/2019 ,07/19/2019 [...] Sign Reading Time Taken Comments Blood Pressure 109/74 12/15/2023 3:08 PM EDT Pulse 78 12/15/2023 3:08 PM EDT Temperature 36.4 C (97.5 F) 12/15/2023 3:08 PM ED T Respiratory Rate 16 12/15/2023 3:08 PM EDT Oxygen Saturation 95% 12/15/2023 3:08 PM EDT Inhaled Oxygen Concentration - - Weight 73.8 kg (162 lb 9.6 oz) 12/15/2023 3:08 P M EDT Height - - Body Mass Index 28.13 06/16/2023 2:56 PM EST documented in this encounter Progress Notes * Delano Pizarro MD - 12/15/2023 3:34 PM EDT Hematology/Oncology Outpatient Clinic note [facility] [address] [facility] [place] [place] [address] Name: Ani Atkins Date: 12/02/2021 CHIEF COMPLAINT: Ani Atkins is a 58 year old female patient here today for f/u visit. DIAGNOSIS: -Hemochromatosis, homozygous for C282Y mutation -Ferritin level was around 300 in August,. Her Ferritin level has remained on the lower side around 30-50 over the last 2 years but iron saturation has remained significantly high around 60%. She has mildly elevated alkaline phosphatase around 150 range. Bone scan negative ((June 2022). Normal GGTP x 2 Could not proceed with the MRI of the liver at [facility] as she had a panic attack during that time CURRENT TREATMENT: -CBCD in Ferritin checkup every 3 monthly and she should have phlebotomy if the Ferritin level is above 50. PREVIOUS TREATMENT: - She had a phlebotomy earlier, last phlebotomy was done in October,. - She says that she had significant improvement of the previously noted symptoms in the form of dizziness and generalized body ache after having phlebotomy. She had hysterectomy about 15 years back. As per the patient it showed benign findings. -she had bilateral salpingo-oophorectomy in October 2020, final pathology showed benign findings. HISTORY OF PRESENT ILLNESS: She has come the clinic for the follow-up, accompanied by her in the office. She says that the previously noted symptoms in the left upper extremity improved to some extent butnow she has developed contracture, she had another surgery with improvement of the local symptoms. She was seen at [facility] ER for left upper quadrant abdominal pain, I reviewed hospital records, overall normal findings noted on the CT scan of the chest abdomen pelvis, no pulmonary embolism, no intra- abdominal mass, no splenomegaly. Liver normal. No intra-abdominal lymphadenop athy.(10/2022) Gained some weight, current weight around 162 lb, she says that she has gained weight following previous salpingo-oophorectomy. No nausea, no vomiting. No fever. No cardiac or pulmonary symptoms. Nonspecific generalized bodyache, no muscle tenderness. 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 Tobacco Use Smoking status: Former Current packs/day: 0.00 Average packs/day: 0.5 packs/day for 4.0 years (2.0 ttl pk-yrs) Types: Cigarettes Start date: 08/01/1984 Quit date: 08/01/1988 Years since quittin.3 Smokeless tobacco: Never Tobacco comments: no passive smoke exposures at home Substance and Sexual Activity Alcohol use: No Drug use: No Sexual activity: Not Currently Partners: Male control/protection: Surgical Comment: hysterectomy Other Topics Concern Service No Blood Transfusions No Caffeine Concern Not Asked Occupational Exposure Not Asked Hobby Hazards Not Asked Sleep Concern Not Asked Stress Concern Not Asked Weight Concern Not Asked Special Diet Yes Back Care Not Asked Exercise Not Asked Bike Helmet Not Asked Seat Belt Yes Self-Exams Yes Social History Narrative [employer] INFORMATION ENVIRONMENTAL HISTORY: Type of Home: [place] Type of Heating System: Electric Air Conditioning: Yes Patient's bedroom and Living room Basement: Finished, Dampness, Dehumidifier and No evidence mold, mildew Home have cockroaches: No Irritants in the home: Scented Candles Patient's bedroom location: Floor: first Type of fe: Carpeting Beds: Number: 1 Type of beds: Mattress Pillows: Number: 1 Type of pillows: Synthetic (hypoallergenic, polyester) Bedroom contains: Bookshelves/Books, Collectibles (knicknacks) and Plants Pets: 1 dog(s) Lives on a farm: No 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 Entered by: Hilario Long MD 01/04/2006 Social Determinants of Health Financial Resource Strain: Not on file Food Insecurity: No Food Insecurity (12/21/2022) Hunger Vital Sign Worried About Running Out of Food in the Last Year: Never true Ran Out of Food in the Last Year: Never true Transportation Needs: Not on file Physical Activity: Not on file Stress: Not on file Social Connections: Not on file Intimate Partner Violence: Not on file Housing Stability: Not on file Past Surgical History: Procedure Laterality Date BREAST LESION,OTHER,EXCISION 1996 right Breast Excision, benign tumor/cyst BREAST LESION,OTHER,EXCISION Left 2013 Fibroadenoma COLONOSCOPY, DIAGNOSTIC (RECTUM) 05/21/2011 internal hemorrhoids COLONOSCOPY, DIAGNOSTIC (RECTUM) 09/04/2018 normal bx/COLONOSCOPY FLEXIBLE PROXIMAL [facility]ST[facility], [facility], DIAGNOSTIC 11/19/2022 normal bx / ESOPHAGOGASTRODUODENOSCOPY (EGD), FLEXIBLE, TRANSORAL, DIAGNOSTIC performed by Mak Benitez MD at [facility] EGD, FLEXIBLE, W/BIOPSY 09/10/2009 pathology--mild gastritis, mild chronic inflammation likely due to acid reflux HAND/FINGER DEEP LESION REMOVAL,UNDER 1.5CM Left 11/26/2014 EXCISION TUMOR HAND DEEP performed by Shane Tejeda MD at [facility] HEMORRHOIDECTOMY, INTERNAL W/ BANDING 03/15/2013 HEMORRHOIDECTOMY LIGATURE SIMPLE BANDING performed by Alyssia Babcock MD at [facility] HEMORRHOIDECTOMY, SIMPLE, 1 COLUMN 03/15/2013 HEMORRHOIDECTOMY EXTERNAL AND INTERNAL SIMPLE performed by Alyssia Babcock MD at [facility] INFORMATION 07/2014 lumpectomy LAPAROSCOPY;RMV ADNEXAL STRUCT Bilateral 2020 LUMBAR SPINE FUSION, POSTEROLATERAL 05/31/2006 MISCELLANEOUS ORDER ([facility] ONLY) 1987 right knee tendon repair OTHER 1979' Left knee surgery OTHER 2002 Right elbow surgery OTHER 1971 left foot surgery OTHER 1996 left breast exc., benign PARTIAL HYSTERECTOMY 2002 endometriosis RELEASE PALM CONTRACTURE, OPEN Left 05/11/2023 FASCIOTOMY PALMAR OPEN PARTIAL performed by Mikey Llanos MD at [facility] REMOVE GALLBLADDER 1988 REVISION OF ANKLE JOINT Left 07/16/2015 Ankle Joint Arthroplasty SACROILIAC JOINT INJECT W/GUIDANCE 01/08/2019 INJECTION SACROILIAC JOINT performed by Nahun Moon DO at [facility] TENDON SHEATH INCISION, FINGER Left 02/10/2022 TRIGGER FINGER RELEASE performed by Mikey Llanos MD at [facility] TENDON SHEATH INCISION, FINGER Left 05/11/2023 TRIGGER FINGER RELEASE performed by Mikey Llanos MD at [facility] Family History Problem Relation Age of Onset Allergies Mother chronic sinusitis Arthritis Mother Neurological Disorder Mother Heart Disorder Father Anxiety Disorder Father Allergies Sister seasonal rhinitis Allergies Brother hayfever Asthma Brother Diabetes Grandmother (Maternal) Diabetes Grandfather (Maternal) Heart Disorder Grandfather (Maternal) Hypertension Grandfather (Maternal) Breast Cancer Aunt (Unspecified) maternal aunt Review of patient's allergies indicates: Allergen Reactions Aspirin hives Cephalosporins Mefoxin Codeine Other (Please comment) Chest pain, vomiting Diclofenac Sodium Benzyl alcohol Difficulty breathing Gluten Other (Please comment) GI upset Latex Rash Rash turns to hives if does wash off Lubiprostone amitiza SOB/shakiness/vomiting Morphine And Related lorcet and codeine Omeprazole Hives, Nausea/vomiting and Other (Please comment) Chest pain Oxycodone Penicillins hives Prednisone Diarrhea, Nausea/vomiting and Psych complications Causes change in mental status Protonix [Pantoprazole Sodium Sesquihydrate] Chest discomfort, stomach cramping, rash on arms Sulfa Antibiotics rash Current Outpatient Medications Medication Sig Dispense Refill LORATADINE 10 MG PO TABS Take by mouth. Spacer/Aero-Holding Chambers (AEROCHAMBER PLUS FLOW VU) inhaler Use as directed with your inhaler. 1 Each 0 Acetaminophen 325 MG Oral Tablet (Tylenol) Take 2 Tabs by mouth every 6 hours as needed for Pain, Mild. 100 Tab 3 ProAir HFA 108 (90 Base) MCG/ACT Inhalation Aerosol Solution Inhale by mouth 2 Puffs 4 times a day . (Patient taking differently: Inhale 2 Puffs by mouth in the morning and 2 Puffs at noon and 2 Puffs in the evening and 2 Puffs before bedtime.) 18 g 5 SUMAtriptan Succinate 25 MG Oral Tablet (Imitrex) Take 2 tablets at onset of migraine and one tablet every 2 hours as needed, not more than 5 tablets in 24 hours 6 Tablet 11 No current facility-administered medications for this visit. OBJECTIVE: BP 109/74 (BP Site: Left Arm, BP Position: Sitting, BP Cuff Size: Regular) | Pulse 78 | Temp 36.4 C (97.5 F) (Tympanic) | Resp 16 | Wt 73.8 kg (162 lb 9.6 oz) | SpO2 95% | BMI 28.13 kg/m | BSA 1.82 m PHYSICAL EXAM: General Appearance: Normal - Healthy appearing patient in no acute distress Skin: Normal- No rashes, lesions or petechiae. HEENT: Normal - No oral or pharyngeal masses, ulceration or thrush noted, no sinus tenderness Lymph Nodes: Normal - No palpable lymph nodes in the neck or supraclavicular areas Lungs/Thorax: Normal - Clear to auscultation Heart: Normal - Regular rate and rhythm, normal S1, S2, no appreciable murmurs, rubs, gallops Pulses/Extremities: Normal - 2+ throughout and symmetrical, no edema b/l Abdomen: Normal - Soft, nontender, bowel sounds present, no appreciable hepatosplenomegaly, no palpable masses Musculoskeletal: Normal - No pain on palpation over bony prominence, no joint or bony deformity Neurologic: Normal - Grossly intact Psyche: No vegetative signs of depression. LABS: Blood workup done on 06/10/2022: -WBC 4400, H&H of 14.6/40.4, Platelet 209,000 -normal LFT other than alkaline phosphatase 160. -Ferritin level --> 87. -normal LFT other than alkaline phosphatase 157 (10/15/2022) -Ferritin level was around 50 (09/13/2022) she had phlebotomy following that. -alpha-fetoprotein level -> 3.4 which is in the normal range (04/13/2023). LFT done on 07/12/2023: -alkaline phosphatase around 150, normal other LFT. IMPRESSION: 57-year-old female, a case of hemochromatosis, she is homozygous for C282Y mutation, her highest Ferritin level was around 300, she had a partial hysterectomy about 15 years back, she had a phlebotomy in 2014, Ferritin level has dropped down to around 30-50 since then,her iron saturation has remained quite high around 60% but Ferritin level is in the range of 30-50. Normal liver function tests. She is currently on a schedule of phlebotomy q 3 months if ferritin > 50. Last phlebotomy was in09/2021. She does complain of generalized body ache, some nonspecific lower extremity pain. Recent blood workup shows elevated alkaline phosphatase but normal GGTP. Bone scan negative. She had CT scan of the abdomen pelvis, no liver lesion, no bone lesions identified. (10/2022) Recently she would a blackout in the right eye and some blurring of vision, she was seen at [facility], reviewed hospital records, she had MRI of the brain without intravenous contrast which was reported to be negative. (05/21/2023). Her alkaline phosphatase has remained on the higher side around 150 range for the last 2 years. [place] nonspecific generalized body ache but no focal bone pain. No fracture. No fall. She is having another liver function test in mid- December 2023. I am also planning for alkaline phosphatase isoenzyme for further evaluation. If she has bone fraction is elevated, will repeat bone scan . Will check blood workup every 3 monthly and she should have phlebotomy if the Ferritin level is above 50 I am planning to see her back in the clinic about [address] Delano Pizarro Hem/Onc (This note was completed using the dictation program Fluency Direct. As such, there may be misspellings word substitutions, or other variations that should not change the essence of the clinical content of this encounter note. If there is need for further clarification, please direct questions to the provider listed above.) documented in this encounter Nursing Notes * Oksana Cabrales, MED ASSIST - 12/15/2023 3:09 PM EDT Patient identifed by name and birthdate Do you have any concerns about pain management for today's visit? Yes. Patient instructed to discuss pain concerns with provider during the visit today Living Will or Advance Directive for Health Care as noted on the problem list. [facility] is a way you can talk to your provider on line through e-mail. Would you like to sign up? I can activate it for you? ALREADY ACTIVE Filed Vitals: 12/15/23 1508 BP: 109/74 Pulse: 78 Resp: 16 Temp: 36.4 C (97.5 F) TempSrc: Tympanic SpO2: 95% Weight: 73.8 kg (162 lb 9.6 oz) Patient was instructed to not get up on the exam table/exam chair until directed and assisted by their provider; patient is to remain seated in the chair/ wheelchair/ exam table/ exam chair for fall prevention and safety reasons. Patient is aware to have assistance to step down off exam table/exam chair with personnel. Patient voiced full comprehension of instructions. documented in this encounter Plan of Treatment Upcoming Encounters Date Type Department Care Team (Late st Contact Info) Description 12/20/2023 9:00 AM EDT Office Visit General Internal Medicine [facility] [address] [place] [address] Jenn Pizarro MD [address] [facility] [place], [place] [address] 01/19/2024 7:00 AM EDT Laboratory Laboratory [facility] [address] [facility] [address] [place] [id number] [facility] [address] [facility] [place], [place] [address] 06/19/2024 3:15 PM EST Office Visit Hematology/Oncology [facility] [address] [facility] [address] [place], [place] [id number] Delano Pizarro MD [address] [facility] [place] [address] Scheduled Orders Name Type Priority Associated Diagnoses Orde r Schedule ALKALINE PHOSPHATASE ISOENZYMES Lab Routine Elevated alkaline phosphatase level Hereditary hemochromatosis (HCC) Expected: 01/27/2024, Expires: 12/14/2024 HEPATIC FUNCTION PANEL Lab Routine Elevated alkaline phosphatase level Hereditary hemochromatosis (HCC) Expected: 01/27/2024, Expires: 12/14/2024 Scheduled Procedures Name Priority Associated Diagnoses Date/Ti me COLONOSCOPY FLEXIBLE PROXIMA L DIAGNOSTIC Recall Encounter for screening colonoscopy Health Maintenance Due Date Last Done Comments Cologuard 11/10/2012 Fecal Occult Blood Test 11/10/2012 Sigmoidoscopy 11/10/2012 COVID-19 Vaccine ( season) 2023 11/08/2020, 10/18/2020 Mammogram 12/09/2023 12/08/2022, 06/01, 11/06/2018, Additional history exists Depression Screening 12/22/2023 12/21/2022 Influenza Vaccine (FLU shot) (Season Ended) 2024 06/25/2020, 06/25/2020, 07/19/2019, Additional history exists [...] 66 Years) Completed 11/23/2022, 06/18/2009 Hepatitis B Completed 12/21/2022, 11/23/2022 GARDASIL-HPV IMMUNIZATION SERIES Aged Out No longer eligible based on patient's age to complete this topic MENINGOCOCCAL (MENACTRA/MENVEO) Aged Out No longer eligible based on patient's age to complete this topic documented as of this encounter Medical Devices Not on filedocumented as of this encounter Visit Diagnoses Diagnosis Hereditary hemochromatosis (HCC)- Primary Hereditary hemochromatosis Elevated alkaline phosphatase level Other nonspecific abnormal serum enzyme levels documented in this encounter Care Teams Building Trades Instructor Relationship Specialty Start Date End Date Jenn Pizarro MD [address] [facility] [place] [address] PCP - General Internal Medicine 09/21/12 documented as of this encounter"
--- OUTSIDE RECORDS SUMMARY | 2024-06-11 06:41 | External Medical Summary | Summary of Care ---
Author Name Unknown Organization [facility] Address [address] [place] [address] Phone [phone] Care Team Providers Care Forest Fire Management Officer Name Role Phone Jenn Pizarro MD Primary Care Provider + Reason for Visit * Reason Onset Date Comments Test Results Lab 01/27/2024 Encounter Details Date Type Department Care Team (Late st Contact Info) Description 01/27/2024 Telephone Hematology/Oncology [facility] [address] [place] [address] Delano [facility]izarro MD [address] [facility] [address] Test Results Lab Allergies Active Allergy Reactions [...] as of this encounter (statuses as of 01/27/2024) Medications Medication Sig Dispensed Refills Start Date [...] as of this encounter (statuses as of 01/27/2024) Active Problems Problem Noted Date Diagnosed Date [...] as of this encounter (statuses as of 01/27/2024) Resolved Problems Problem Noted Date Diagnosed Date Resolved Date Asthma with severity to be determined 01/04/2006 02/08/2013 Overview: ICD-10 update of inactive term documented as of this encounter (statuses as of 01/27/2024) Immunizations Name Administration Dates Next Due COVID-19 mRNA, LNP-s, No Pre serve, 2-Dose Series (Pfizer) 11/08/2020,10/18/2020 Hepatitis B Vaccine, Recombi nant, Adjuvanted, 20 mcg/mL (Heplisav-B) 12/21/2022,11/23/2022 PPD 02/05/2008 Pneumococcal Conjugate Vacci ne, 20-valent ([id number]) 11/23/2022 Pneumococcal Polysaccharide PPV23 (Pneumovax) 06/18/2009 Seasonal [...] encounter Miscellaneous Notes * Telephone Encounter - Delano Pizarro MD - 01/27/2024 2:37 PM EDT If she has no new symptoms, I would watch regarding low WBC as ANC is normal around 2100 Agree about getting blood workup every 14 weeks. * Telephone Encounter - Nazia Mora LPN - 01/27/2024 9:20 AM EDT Images from the original note were not included. Dr. Pizarro: Patient is requesting if she needs to be concerned in regards to her recent WBC? She denies any complaints or s/s of infection at this time. The patient is also asking if her lab work can be 14 weeks due to paying for her labs out of pocket. * Telephone Encounter - Nazia Moar LPN - 01/27/2024 9:18 AM EDT Called and spoke with patient, made patient aware of lab result message from Provider below. She verbalized understanding. Patient questions if she should be concerned in regards to her "low" white count. Patient is also requesting lab order be changed to "every fourteen weeks". Patient states due to medical bills and paying out of pocket she would like to have more time in between the labs. * Telephone Encounter - Nazia Mora LPN - 01/27/2024 9:12 AM EDT ----- Message from Delano Pizarro MD sent at 01/27/2024 6:41 AM EDT ----- Blood workup done on 01/24/2024: - WBC 3900, H&H of 14.6 less 43, platelet count 182,000 - Ferritin level --> 42 - Normal LFT, alkaline phosphatase --> 120. No need for phlebotomy. Now her alkaline phosphatase is in the normal range. No further workup is indicated for that. She gets CBCD of ferritin checkup every 3 monthly and she should have phlebotomy if ferritin level is above 50. documented in this encounter Plan of Treatment Upcoming Encounters Date Type Department Care Team (Late st Contact Info) Description 02/08/2024 9:20 AM EDT Office Visit Podiatry [facility] 132 [facility] [place] [address] Tammy Villagomez, DPSalvatore [facility] [place] [address] 02/08/2024 11:00 AM EDT Imaging Radiology [facility] 1st [facility] 132 [facility] [place] [address] 06/19/2024 3:15 PM EST Office Visit Hematology/Oncology [facility] [address] [place] [phone] Delano Pizarro MD 200 [facility] [place] [address] 01/15/2025 7:40 AM EDT Office Visit General Internal Medicine [facility] [place] [address] [place] [address] Jenn Pizarro MD [address] [place] [facility] [place] [address] Scheduled Procedures Name Priority Associated Diagnoses Date/Ti [...] Not on filedocumented as of this encounter Care Teams Forest Fire Management Officer Relationship Specialty Start Date End Date Jenn Pizarro MD [address] [place] [address] PCP - General Internal Medicine 09/21/12 documented as of this encounter
--- OUTSIDE RECORDS SUMMARY | 2024-06-11 06:41 | External Medical Summary ---
Author Name Unknown Address Unknown Organization : Laboratory Report Ordering Provider Test Date Status DELORES MALHOTRA 01/24/2024 08:11:02 Final Observation Date Value Abnormality Reference (Units ) Status Alk Phos 01/24/2024 08:11:02 102 37-153 (U/L) Final INTESTINAL ISOENZYMES 01/24/2024 08:11:02 0 Below low normal 1-24 (%) Final Alk Phos, bone / Alk Phos, total 01/24/2024 08:11:02 46 28-66 (%) Final LIVER ISOENZYMES 01/24/2024 08:11:02 54 25-69 (%) Final Alk Phos, placental / Alk Phos, total 01/24/2024 08:11:02 0 <=0 (%) Final Alk Phos, macrohepatic / Alk Phos, total 01/24/2024 08:11:02 0 <=0 (%) Final Alkaline phosphatase isoenzymes [Interpretation] in Serum or Plasma Narrative 01/24/2024 08:11:02 DNR Final
Test Performed at:
[facility]
[address] [facility]
[place] [address]
Ruddy Castaneda M.D., Ph.D.,Director of Laboratories Performing Location
--- OUTSIDE RECORDS SUMMARY | 2024-06-11 06:41 | External Medical Summary ---
Author Name Unknown Address Unknown Organization K09:[facility] [place] [address] Laboratory Report Ordering Provider Test Date Status DELROES MALHOTRA 01/24/2024 08:11:02 Final Observation Date Value Abnormality Reference (Units ) Status SYNC LEUKOCYTES IN BLOOD BY AUTOMATED COUNT 01/24/2024 08:11:02 3.90 Below low normal 4.00-10.80 (K/uL) Final Segs 01/24/2024 08:11:02 56.1 40.0-75.0 (%) Final Lymphs % 01/24/2024 08:11:02 35.4 18.0-42.0 (%) Final Monos 01/24/2024 08:11:02 6.7 1.0-11.0 (%) Final Eosinophils 01/24/2024 08:11:02 1.5 0.0-6.0 (%) Final Basos 01/24/2024 08:11:02 0.3 0.0-2.0 (%) Final Absolute Segs 01/24/2024 08:11:02 2.19 1.80-7.70 (K/uL) Final Lymphs, absolute 01/24/2024 08:11:02 1.38 1.00-4.80 (K/ul) Final Monos, Abs 01/24/2024 08:11:02 0.26 0.00-1.10 (K/uL) Final Eos, Abs 01/24/2024 08:11:02 0.06 0.00-0.70 (K/uL) Final Basos, Abs 01/24/2024 08:11:02 0.01 0.00-0.20 (K/uL) Final Performing Location [facility] [place] [address]
--- OUTSIDE RECORDS SUMMARY | 2024-06-11 06:41 | External Medical Summary ---
Author Name Unknown Address Unknown Organization K09:[facility] [place] [address] Laboratory Report Ordering Provider Test Date Status DELORES MALHOTRA 01/24/2024 08:11:02 Final Observation Date Value Abnormality Reference (Units ) Status WBC, Total 01/24/2024 08:11:02 3.90 Below low normal 4. 00-10.80 (K/uL) Final RBC 01/24/2024 08:11:02 4.54 3.85-5.15 (M/uL) Final Hemoglobin 01/24/2024 08:11:02 14.6 12.0-15.3 (g/dL) Final HCT 01/24/2024 08:11:02 43.1 36.0-45.2 (%) Final MCV 01/24/2024 08:11:02 94.9 81.5-97.5 (fL) Final MCH 01/24/2024 08:11:02 32.2 27.0-34.0 (pg) Final MCHC 01/24/2024 08:11:02 33.9 32.0-36.0 (g/dL) Final RDW 01/24/2024 08:11:02 12.6 11.5-15.5 (%) Final Platelets 01/24/2024 08:11:02 182 140-400 (K /uL) Final MPV 01/24/2024 08:11:02 10.8 6.6-11.1 ( fL) Final Performing Location [facility] [place] [address]
--- OUTSIDE RECORDS SUMMARY | 2024-06-11 06:41 | External Medical Summary | Summary of Care ---
Author Name Unknown Organization [facility] Address [address] [place] [address] Phone [phone] Care Team Providers Care Logistics Program Manager Name Role Phone Jenn Pizarro MD Primary Care Provider + Reason for Visit * Reason Onset Date Comments Test Results Lab 01/27/2024 Encounter Details Date Type Department Care Team (Late st Contact Info) Description 01/27/2024 Telephone Hematology/Oncology [facility] [address] [place] [address] Delano Pizarro MD [address] [facility] [address] Test Results Lab Allergies Active Allergy Reactions [...] PPD 02/05/2008 Pneumococcal Conjugate Vacci ne, 20-valent ([id number]) 11/23/2022 Pneumococcal Polysaccharide PPV23 (Pneumovax) 06/18/2009 Seasonal [...] of pocket. * Telephone Encounter - Nazia Mora LPN - 01/27/2024 9:18 AM EDT Called [...] 02/08/2024 9:20 AM EDT Office Visit Podiatry [facility] 132 [facility] [place] [address] Tammy Villagomez DPM 400 [facility] [place] [address] 02/08/2024 11:00 AM EDT Imaging Radiology [facility] 1st [facility] 132 [facility] [place] [address] 06/19/2024 3:15 PM EST Office Visit Hematology/Oncology [place] [address] [place] [address] [phone] Delano Pizarro MD [facility] [place] [address] 01/15/2025 7:40 AM EDT Office Visit General Internal Medicine [facility] [address] [place] [address] [address] Jenn Pizarro MD [address] [place], [place] [address]m[place]o [place] [facility] [place] [address] Scheduled Procedures Name Priority Associated Diagnoses Date/Ti [...] 11/24/2027 11/23/2022, 0809/2020, 05/31/2018, Additional history exists DTaP,Tdap,and Td Vaccines [...] filedocumented as of this encounter Care Teams Logistics Program Manager Relationship Specialty Start Date End Date Jenn Pizarro MD [address] [place] [address] [place], [place] [address] PCP - General Internal Medicine 09/21/12 documented as of this encounter
--- OUTSIDE RECORDS SUMMARY | 2024-06-11 06:41 | External Medical Summary | Summary of Care ---
Author Name Unknown Organization [facility] Address [address] [place] [address] Phone [phone] Care Team Providers Care Plant Tech Name Role Phone Jenn Pizarro MD Primary Care Provider + Reason for Visit * Reason Onset Date Comments Test Results Lab 01/27/2024 Encounter Details Date Type Department Care Team (Late st Contact Info) Description 01/27/2024 Telephone Hematology/Oncology [facility] [address] [place] [address] Delano Pizarro MD [address] [facility] [address] Test Results Lab Allergies Active Allergy Reactions [...] PPD 02/05/2008 Pneumococcal Conjugate Vacci ne, 20-valent ([id number]) 11/23/2022 Pneumococcal Polysaccharide PPV23 (Pneumovax) 06/18/2009 Seasonal [...] as of this encounter Miscellaneous Notes * Addendum Note - Rick Mora LPN - 01/27/2024 3:48 PM EDTAddended by: RICK MORA on: 01/27/2024 03:48 PM Modules accepted: Orders * Telephone Encounter - Rick Mora LPN - 01/27/2024 3:46 PM EDT Called and spoke with patient, informed her of Dr. Pizarro's response below: No concerns about alkaline phosphatase isoenzymes. It is in the normal range. Patient verbalized understanding. Per patient request scheduled her a lab appointment for Tuesday05/04/2024 at 8:00 am at . Advised patient to contact our office with any further questions or concerns. Patient verbalized understanding. * Telephone Encounter - Delano Pizarro MD - 01/27/2024 3:31 PM EDT No concerns about alkaline phosphatase isoenzymes. It is in the normal range. * Telephone Encounter - Ruddy Manuel RN - 01/27/2024 2:[address] Pizarro- patient just wanting to know if there were any concerns regarding the Alk Phos Isoenzymelabs. I see from your note that patients Alk Phos normalized, any concerns regarding the isoenzymes? Thanks. * Telephone Encounter - Delano Pizarro MD - 01/27/2024 2:37 PM EDT If she has no new symptoms, I would watch regarding low WBC as ANC is normal around 2100 Agree about getting blood workup every 14 weeks. * Telephone Encounter - Rick Mora LPN - 01/27/2024 9:20 AM EDT [...] out of pocket. * Telephone Encounter - Rick Mora LPN - 01/27/2024 9:18 AM EDT [...] between the labs. * Telephone Encounter - Rick Mora LPN - 01/27/2024 9:12 AM EDT [...] 02/08/2024 9:20 AM EDT Office Visit Podiatry [facility] 132 [facility] [place] [address] Tammy Villagomez DPM 400 [facility] [place] [address] 02/08/2024 11:00 AM EDT Imaging Radiology [facility] 1st [facility] 132 [facility] [place] [address] 05/04/2024 8:00 AM EDT Laboratory Laboratory [facility] [address] [place] [address] [facility] [address] [facility] [place] [address] 06/19/2024 3:15 PM EST Office Visit Hematology/Oncology [facility] [address] [place] [phone] Delano Pizarro MD [address] [place] [address] 01/15/2025 7:40 AM EDT Office Visit General Internal Medicine [facility] [address] [place] [address] Jenn Pizarro MD 200 [facility] [place] [address] Scheduled Orders Name Type Priority Associated Diagnoses Orde r Schedule CBC WITH WBC DIFFERENTIAL Lab Routine Hereditary hemochromatosis (HCC) Expected: 05/01/2024 (Approximate), Expires: 01/26/2025 FERRITIN Lab Routine Hereditary hemochromatosis (HCC) Expected: 05/01/2024 (Approximate), Expires: 01/26/2025 Scheduled Procedures Name Priority Associated Diagnoses Date/Ti [...] Diagnosis Hereditary hemochromatosis (HCC)- Primary Hereditary hemochromatosis documented in this encounter Care Teams Plant Tech Relationship Specialty Start Date End Date Jenn Pizarro MD 200 [facility] [place] [address] PCP - General Internal Medicine 09/21/12 documented as of this encounter
--- OUTSIDE RECORDS SUMMARY | 2024-06-11 06:41 | External Medical Summary | Summary of Care ---
Author Name Unknown Organization [facility] Address [address] [place] [address] Phone [phone] Care Team Providers Care Storekeeper Engineering Name Role Phone Jenn Pizarro MD Primary Care Provider + Reason for Visit * Reason Onset Date Comments Test Results Lab 01/27/2024 Encounter Details Date Type Department Care Team (Late st Contact Info) Description 01/27/2024 Telephone Hematology/Oncology [facility] [address] [place] [address] Delano Pizarro MD [address] [facility] [address] Test Results Lab Allergies Active Allergy Reactions [...] PPD 02/05/2008 Pneumococcal Conjugate Vacci ne, 20-valent ([id number]) 11/23/2022 Pneumococcal Polysaccharide PPV23 (Pneumovax) 06/18/2009 Seasonal [...] encounter Miscellaneous Notes * Telephone Encounter - Ruddy Manuel RN [...] 02/08/2024 9:20 AM EDT Office Visit Podiatry [facility] 132 [facility] [place] [address] Tammy Villagomez DPM [address] [place] [address] [place] [address] 02/08/2024 11:00 AM EDT Imaging Radiology [address] 132 [facility] [place] [address] 06/19/2024 3:15 PM EST Office Visit Hematology/Oncology [place] [place] 200 [facility] [place], [place] [address] Delano Pizarro MD 200 [place] [address] 01/15/2025 7:40 AM EDT Office Visit General Internal [facility] 200 [facility] [place] [address] Jenn Pizarro MD 200 [facility] [place] [address] Scheduled Procedures Name Priority Associated Diagnoses Date/Ti [...] filedocumented as of this encounter Care Teams Storekeeper Engineering Relationship Specialty Start Date End Date Jenn Pizarro MD [address] [place] [address] PCP - General Internal Medicine 09/21/12 documented as of this encounter
--- OUTSIDE RECORDS SUMMARY | 2024-06-11 06:41 | External Medical Summary | Summary of Care ---
Author Name Unknown Organization [facility] Address [address] [place] [address] Phone [phone] Care Team Providers Care Manager Food Name Role Phone Jenn Pizarro MD Primary Care Provider + Reason for Visit * Reason Comments Outpatient Testing Encounter Details Date Type Department Care Team (Latest Contact Info) Description 01/24/2024 8:20 AM EDT Laboratory Laboratory [facility] [place] [address] [place] [address] [place] [address] [place] [address] Hereditary hemochromatosis (HCC); Elevated alkaline phosphatase level Allergies Active Allergy [...] as of this encounter (statuses as of 01/24/2024) Medications Medication Sig Dispensed Refills Start Date [...] as of this encounter (statuses as of 01/24/2024) Active Problems Problem Noted Date Diagnosed Date [...] as of this encounter (statuses as of 01/24/2024) Resolved Problems Problem Noted Date Diagnosed Date Resolved Date Asthma with severity to be determined 01/04/2006 02/08/2013 Overview: ICD-10 update of inactive term documented as of this encounter (statuses as of 01/24/2024) Immunizations Name Administration Dates Next Due COVID-19 mRNA, LNP-s, No Pre serve, 2-Dose Series (Pfizer) 11/08/2020,10/18/2020 Hepatitis B Vaccine, Recombi nant, Adjuvanted, 20 mcg/mL (Heplisav-B) 12/21/2022,11/23/2022 PPD 02/05/2008 Pneumococcal Conjugate Vacci ne, 20-valent ([id number]) 11/23/2022 Pneumococcal Polysaccharide PPV23 (Pneumovax) 06/18/2009 Seasonal [...] 02/08/2024 9:20 AM EDT Office Visit Podiatry [address] [place] [address] Tammy Villagomez DPM [address] [place] [address] [place] [address] 02/08/2024 10:45 AM EDT Imaging Radiology [address] [place] [address] 06/19/2024 3:15 PM EST Office Visit Hematology/Oncology [facility] [address] [place] [phone] Delano Pizarro MD [address] [place] [address] 01/15/2025 7:40 AM EDT Office Visit General Internal Medicine [facility] [address] [place] [address] Jenn Pizarro MD [address] [place] [address] Pending Results Name Type Priority Associated Diagnoses Date /Time FERRITIN Lab STAT Hereditary hemochromatosis (HCC) 01/24/2024 8:11 AM EDT ALKALINE PHOSPHATASE ISOENZYMES Lab Routine Elevated alkaline phosphatase level Hereditary hemochromatosis (HCC) 01/24/2024 8:11 AM EDT HEPATIC FUNCTION PANEL Lab Routine Elevated alkaline phosphatase level Hereditary hemochromatosis (HCC) 01/24/2024 8:11 AM EDT Scheduled Procedures Name Priority Associated [...] 05/30/2028 05/30/2018, 05/30/2018, 02/05/2008 Colonoscopy 09/04/2028 09/04/2018, 020 10/2018, 05/21/2011 Colorectal Cancer Screening 09/04/2028 Zoster [...] Not on filedocumented as of this encounter Procedures Procedure Name Priority Date/Time Associated Diagnosis Comments DIFFERENTIAL, AUTOMATED STAT 01/24/2024 8:11 AM EDT Hereditary hemochromatosis (HCC) CBC STAT 01/24/2024 8:11 AM EDT Hereditary hemochromatosis (HCC) CBC STAT 01/24/2024 8:11 AM EDT Hereditary hemochromatosis (HCC) documented in this encounter Results * (ABNORMAL) DIFFERENTIAL, AUTOMATED (01/24/2024 8:11 AM EDT) WBC 3.90(L) 4.00 - 10.80 K/uL 01/24/2024 8:21 AM EDT [facility] [place] 56[facility]02 Neutrophils % 56.1 40.0 - 75.0 % 01/24/2024 8:21 AM EDT [facility] [place] 56-02 Lymphocytes % 35.4 18.0 - 42.0 % 01/24/2024 8:21 AM EDT [facility] [place] 56-02 Monocytes % 6.7 1.0 - 11.0 % 01/24/2024 8:21 AM EDT [facility] [place] 56-02 Eosinophils % 1.5 0.0 - 6.0 % 01/24/2024 8:21 AM EDT [facility] [place] 56-02 Basophils % 0.3 0.0 - 2.0 % 01/24/2024 8:21 AM EDT [facility] [place] 56-02 Absolute Neutrophils 2.19 1.80 - 7.70 K/uL 01/24/2024 8:21 AM EDT [facility]-02 Absolute Lymphocytes 1.38 1.00 - 4.80 K/ul 01/24/2024 8:21 AM EDT [facility] [place] [facility]02 Absolute Monocytes 0.26 0.00 - 1.10 K/uL 01/24/2024 8:21 AM EDT [facility]02 Absolute Eosinophils 0.06 0.00 - 0.70 K/uL 01/24/2024 8:21 AM EDT [facility] [place] 56-02 Absolute Basophils 0.01 0.00 - 0.20 K/uL 01/24/2024 8:21 AM EDT [facility] 56-02 Blood Venous blood specimen / Unknown Venipuncture / Unknown 01/24/2024 8:11 AM EDT 01/24/2024 8:11 AM EDT Delano Pizarro MD LAB BLOOD ORDERABLES [address] [place] [id number] * (ABNORMAL) CBC (01/24/2024 8:11 AM EDT) WBC 3.90(L) 4.00 - 10.80 K/uL 01/24/2024 8:21 AM EDT [address] RBC 4.54 3.85 - 5.15 M/uL 01/24/2024 8:21 AM EDT [address] HGB 14.6 12.0 - 15.3 g/dL 01/24/2024 8:21 AM EDT [address] HCT 43.1 36.0 - 45.2 % 01/24/2024 8:21 AM EDT [address] MCV 94.9 81.5 - 97.5 fL 01/24/2024 8:21 AM EDT [address] MCH 32.2 27.0 - 34.0 pg 01/24/2024 8:21 AM EDT [address] MCHC 33.9 32.0 - 36.0 g/dL 01/24/2024 8:21 AM EDT [address] RDW 12.6 11.5 - 15.5 % 01/24/2024 8:21 AM EDT [facility] 56 PLT 182 140 - 400 K/uL 01/24/2024 8:21 AM EDT [facility] 56 MPV 10.8 6.6 - 11.1 fL 01/24/2024 8:21 AM EDT [facility] 56 Blood Venous blood specimen / Unknown Venipuncture / Unknown 01/24/2024 8:11 AM EDT 01/24/2024 8:11 AM EDT Delano Pizarro MD LAB BLOOD ORDERABLES [facility] 56-02 200 [facility] [address] documented in this encounter Visit Diagnoses Diagnosis Hereditary hemochromatosis (HCC) Hereditary hemochromatosis Elevated alkaline phosphatase level Other nonspecific abnormal serum enzyme levels documented in this encounter Care Teams Manager Food Relationship Specialty Start Date End Date Jenn Pizarro MD 200 [facility] [address] PCP - General Internal Medicine 09/21/12 documented as of this encounter
--- OUTSIDE RECORDS SUMMARY | 2024-06-11 06:41 | External Medical Summary | Summary of Care ---
Author Name Unknown Organization [facility] Address [address] [place] [address] Phone [phone] Care Team Providers Care Sanitarian Inspector Name Role Phone Jenn Pizarro MD Primary Care Provider + Reason for Visit * Reason Onset Date Comments Test Results Lab 01/27/2024 Encounter Details Date Type Department Care Team (Late st Contact Info) Description 01/27/2024 Telephone Hematology/Oncology [facility] [address] [place] [address] Delano Pizarro MD [address] [facility] [address] Test Results Lab Allergies Active Allergy Reactions [...] PPD 02/05/2008 Pneumococcal Conjugate Vacci ne, 20-valent ([id number]) 11/23/2022 Pneumococcal Polysaccharide PPV23 (Pneumovax) 06/18/2009 Seasonal [...] 02/08/2024 9:20 AM EDT Office Visit Podiatry [facility] 132 [facility] [place] [address] Tammy Villagomez DPM [address] [place] [address] [place] [address] 02/08/2024 11:00 AM EDT Imaging Radiology [facility] 1st [facility] [place] [address] [place] [address] 06/19/2024 3:15 PM EST Office Visit Hematology/Oncology [facility] 200 [facility] [place] [phone] Delano Pizarro MD 200 [facility] [place] [address] 01/15/2025 7:40 AM EDT Office Visit General Internal Medicine [facility] 200 [facility] [place] [address] Jenn Pizarro MD 200 [facility] [place] [address] Scheduled Procedures Name Priority Associated Diagnoses Date/Ti [...] filedocumented as of this encounter Care Teams Sanitarian Inspector Relationship Specialty Start Date End Date Jenn Pizarro MD 200 [facility] [place] [address] PCP - General Internal Medicine 09/21/12 documented as of this encounter
--- OUTSIDE RECORDS SUMMARY | 2024-06-11 06:41 | External Medical Summary ---
Author Name Unknown Address Unknown Organization K09:[facility] [place] [address] Laboratory Report Ordering Provider Test Date Status DELORES MALHOTRA 01/24/2024 08:11:02 Final Observation Date Value Abnormality Reference (Units ) Status Albumin 01/24/2024 08:11:02 4.5 3.8-5.0 (g/dL) Final AST (Aspartate aminotransferase) 01/24/2024 08:11:02 15 10-35 (U/L) Final Alk Phos 01/24/2024 08:11:02 120 35-130 (U/L) Final ALT (Alanine aminotransferase) 01/24/2024 08:11:02 14 10-35 (U/L) Final Bilirubin, Total 01/24/2024 08:11:02 0.7 <=1.2 (mg/dL) Final Bilirubin, Direct 01/24/2024 08:11:02 <0.2 0.0-0.3 (mg/dL) Final Protein 01/24/2024 08:11:02 6.3 6.0-8.3 (g/dL) Final Performing Location [facility] [place] [address]
--- OUTSIDE RECORDS SUMMARY | 2024-06-11 06:41 | External Medical Summary ---
Author Name Unknown Address Unknown Organization K01:LAB[facility]AT[facility] [place] - [address] [place] [id number] Laboratory Report Ordering Provider Test Date Status DELORES MALHOTRA 01/24/2024 08:11:02 Final Observation Date Value Abnormality Reference (Units ) Status Ferritin 01/24/2024 08:11:02 42 13-150 (ng /mL) Final Postmenopausal women have hi gher ferritin levels than pre-menopausal women. The above reference interval is based on pre-menopausal women. Performing Location [facility] - [address] [place] [address]
[2024-06-11 07:18] LABS: Basophils # (auto) 0.02 K/uL (0.00-0.20); Basophils % (auto) 0.5 %; Eosinophils # (auto) 0.05 K/uL (0.00-0.50); Eosinophils % (auto) 1.2 %; Hematocrit (blood only) 43.6 % (37.0-47.0); Immature Granulocytes # (auto) 0.01 K/uL (0.01-0.20); Immature Granulocytes % (auto) 0.2 %; Lymphocytes # (auto) 1.65 K/uL (1.20-3.40); Lymphocytes % (auto) 39.8 %; Mean Corpuscular Hemoglobin 32.4 pg (25.0-34.0); Mean Corpuscular Hgb Conc 34.4 g/dL (32.0-36.0); Mean Corpuscular Volume 94.2 fL (80.0-100.0); Mean Platelet Volume 10.7 fL (9.4-12.4); Monocytes # (auto) 0.32 K/uL (0.11-0.59); Monocytes % (auto) 7.7 %; Neutrophils % (auto) 50.6 %; Platelet Count 226 K/uL (130-400); RDW Coefficient of Variation 11.9 % (11.5-14.5); RDW Standard Deviation 40.8 fL (36.4-46.3); Red Blood Count 4.63 M/uL (4.20-5.40); White Blood Count 4.15 K/ul (4.8-10.8)
[2024-06-11 07:28] LABS: Albumin Globulin Ratio 2.1 (0.9-2); Albumin Level 4.7 gm/dl (3.4-5.0); BUN Creatinine Ratio 20.5 (10-20); Calcium 9.5 mg/dl (8.6-10.3); Creatinine Clr Calc Pharmacy 84.6 ml/min; Globulin 2.2 gm/dl (2.5-4.0); Potassium 3.7 mmol/L (3.5-5.1); Total Protein 6.9 gm/dl (6.0-8.3)
[2024-06-11 07:34] LABS: Troponin I High Sensitivity 2.3 pg/ml (0-14)
[2024-06-11] MEDS: OPTIRAY 320 100ml IV ONE (08:10)
--- NOTE | 2024-06-11 08:35 | CT Scan Report ---
CHEST CT WITH CONTRAST; CT ABDOMEN AND PELVIS WITH IV CONTRAST ONLY CT DOSE: 1716.24 mGy.cm HISTORY: Acute left-sided chest and abdominal pain without reported trauma Chest/abd pain, Left TECHNIQUE: Multiaxial CT images of the chest were performed following the IV administration of 94 cc of Optiray. A dose lowering technique was utilized adhering to the principles of ALARA. COMPARISON: CT abdomen and pelvis and CTA chest 11/16/2022 FINDINGS: CT CHEST: Subcentimeter right-sided thyroid nodule. Aberrant right subclavian artery. Heart is normal in size. No pericardial effusion or thoracic aortic aneurysm. The opacified pulmonary artery appears unremarkable. 3 mm calcified granuloma of the basal right lower lobe. No pneumothorax, pleural effus ion or overt pulmonary edema. No airspace consolidation typical for pneumonia. Unremarkable soft tiss ues. Minimal bilateral rotator cuff calcific tendinosis. No acute fracture identified. Small bilatera l C7 cervical ribs. Chronic T11 and T12 compression deformities. CT ABDOMEN/PELVIS: No pneumoperitoneum. Unremarkable spleen, pancreas and adrenal glands. Cholecystec emmanuelle with likely postsurgical biliary ductal dilation, unchanged. The liver is within normal limits. Patency of the hepatic and portal veins. Unremarkable kidneys without hydronephrosis. Partially decom pressed urinary bladder with mild wall thickening. Hysterectomy. Unremarkable abdominal aorta. There is no lymphadenopathy. No bowel obstruction or bowel wall thickening. Mild colonic diverticulosis. Normal appendix. Tiny fat filled umbilical hernia. Degenerative and postoperative changes of the spine. L5-S1 laminectomy, dis cectomy with posterior body bri and screw fusion. IMPRESSION: 1. No acute intrathoracic, intra-abdominal or intrapelvic abnormality identified. 2. No bowel obstruction or bowel wall thickening. 3. Prior cholecystectomy and hysterectomy with lumbar spinal fusion. ACT 112: Negative or not required by law. Electronically signed by: Shmuel Oquendo M.D. 06/11/2024 8:32 AM
--- NOTE | 2024-06-11 08:43 | XRay Report ---
EXAM: XR chest 1V portable CLINICAL HISTORY: CP LTV/SNC INPATIENT TECHNIQUE: An X-ray image of the chest is obtained in AP projection. COMPARISON: No prior studies are available for comparison. FINDINGS: Pulmonary Parenchyma: Lungs are clear bilaterally. No evidence of consolidation, collapse, or focal opacities. No pulmonary nodules are identified. No evidence of pleural effusion or pleural thickening. Heart and Mediastinum: Heart size and shape are normal. No mediastinal widening or masses. No hilar or mediastinal lymphadenopathy. Bony Thorax: Bony thorax appears intact without fractures or deformities. Soft Tissues: Soft tissues overlying the chest wall are unremarkable. IMPRESSION: No acute cardiopulmonary abnormalities are identified. Electronically signed by Trevon Singh 06-11-2024 08:42 AM
--- NOTE | 2024-06-11 08:55 | Emergency Department Note ---
Impression & Plan Chest pain, Ventricular tachycardia ED Provider Note NAME: SHAYY TSAI AGE: 58 SEX: F : 1965 ARRIVES VIA: Walk-In INFORMANT: Patient, ED PROVIDER(S): Angely Pizarro MD CHIEF COMPLAINT: Chest pain/abdominal pain HPI: This is a 58-year-old female presenting for chest/abdominal pain. Patient notes that on left side of her chest she has had pain for the past 1+ month. She has follow-up with her primary care physician for this pain but she had negative CT imaging about 1 month ago. She notes that she is not a great it was stressed over the past few days due to the loss of 2 loved ones. She notes that her pain is significantly increased. He notes palpitations in her chest. She notes shaking as well. She notes that Tylenol has not improved her symptoms at home. No fevers, chills, congestion. ROS: See above HPI for pertinent positives & negatives. A total of 10 systems reviewed and were otherwise negative. PAST MEDICAL HISTORY: See Below PAST SURGICAL HISTORY: See Below FAMILY HISTORY: See Below SOCIAL HISTORY: See Below HOME MEDICATIONS: See Below ALLERGIES: See Below VITALS: See Below PHYSICAL EXAMINATION: General: resting comfortably in no acute distress Head: Normocephalic and atraumatic Eyes: Normal inspection, extraocular muscles intact Ear, nose, throat: Normal external exam Neck: Normal range of motion Respiratory: lungs clear to auscultation bilaterally Cardiovascular: Regular rate/rhythm, no murmur GI: soft, nontender, no guarding or rebound Extremities: nontender, moves all extremities Neuro: The patient awake and alert, appropriately conversive, no focal deficits, symmetric faces Skin: Warm, dry, and intact MEDICAL DECISION MAKING: This is a 58-year-old female presenting for chest/abdominal pain. Patient however is healthy well but does have a tender abdomen, as well as left-sided ribs. Will do screening blood work to help elucidate. Will do CT imaging of the chest and abdomen to help with any changes since previous CT. -Bloodwork is reviewed showing no significant leukocytosis, anemia, electrolyte or creatinine abnormality -ECG independently interpreted by me with normal sinus rhythm, rate of 77, normal axis, normal GA, normal QRS, normal QTc, no ST segment elevations consistent with STEMI criteria -Chest Xray independently interpreted by me showing no pneumothorax, focal opacity, or pleural effusions. -CT imaging of the chest/abdomen reveals no acute intra-abdominal or intrathoracic process at this time. -Overall patient has negative workup. Will give Tylenol for current pain. -While being observed, patient episode of significant episode of ventricular tachycardia. Patient was describing the chest pain she had been describing before. Due to new onset ventricular tachycardia, will admit for further intervention. Patient placed on pads, EKG is repeated and shows no significant change. -Care discussed with [facility] service, Dr. Means Differential diagnosis: Rib fracture, pneumonia, pneumothorax, bowel perforation, cholecystitis, diverticulitis ER treatment provided: See below Diagnostics interpreted by me: ECG: See above e] Cardiac Monitoring: An order was placed for continuous cardiac monitoring. The monitor shows a rate of 78 with sinus rhythm. Laboratory studies: As stated above and show below. Imaging studies: See below. Past Med/Surg History Problem List Ventricular tachycardia (Acute) Chest pain (Acute) Left bundle branch block Wide-complex tachycardia Encounter for pre-operative examination Chest pain H/O left knee surgery (Chronic) IBS (irritable bowel syndrome) (Chronic) Endometriosis (Chronic) Hemochromatosis (Chronic) Pt follows with Dr. Pizarro, gabi. Most recent phlebotomy 08/2020. Palpitations (Chronic) stress related Migraine (Chronic) S/P cholecystectomy (Chronic) History of hysterectomy (Chronic) Status post left foot surgery (Chronic) left S/P lumbar fusion (Chronic) Hx of hemorrhoidectomy (Chronic) History of lumpectomy (Chronic) bilat Medical History Hiatal hernia History of back problems has had branch blocks, ablations, and steriod injections IBS (irritable bowel syndrome) resolved Deviated nasal septum no repair Asthma res inh rare > more during summer Compression fracture L3-4 > no surgical intervention> fusion is below Mitral valve regurgitation Mild, noted on 2019 stress echo. Follows [facility] Cardio > [facility] Surgical History History of esophagogastroduodenoscopy (EGD) History of colonoscopy Nausea and vomiting after administration of anesthetic agent History of anesthesia reaction memory loss after a procedure done at [facility] > unsure of details History of dilatation and curettage History of tooth extraction [place] teeth extracted Hx of cervical spine surgery laser > ROM WNL Hx of elbow surgery right History of arthroscopy bilat knees History of ankle surgery x2 left Family History Mother Diabetes Grandfather Diabetes Social History Smoking Status: Never smoker Second Hand Exposure: No; Do You Dip or Chew Tobacco: No; Hx Alcohol Use: No Hx Substance Use: No Preferred Language: Spanish Communication Ability: Effective Methods Time Analyst Required: No Beliefs That Will Affect Care: None Current Living Situation: Spouse current occupational status: employed Feels Safe at Home: Yes Assistive Devices: Glasses Allergies Allergies Allergy/AdvReac Type Severity Reaction Status Date / Time Cephalosporins Allergy Severe DIFFICULTY Verified 05/21/23 19:12 BREATHING aspirin Allergy Mild Unknown Verified 05/21/23 19:12 cephalexin Allergy Mild Unknown Verified 05/21/23 19:12 codeine Allergy Mild Unknown Verified 05/21/23 19:12 lubiprostone Allergy Mild UNKNOWN Verified 05/21/23 19:12 Penicillins Allergy Mild Unknown Verified 05/21/23 19:12 Sulfa (Sulfonamide Allergy Mild Unknown Verified 05/21/23 19:12 Antibiotics) latex Allergy Unknown RASH Verified 05/21/23 19:12 gluten AdvReac Intermediate GI SYMPTOMS Verified 05/21/23 19:12 morphine AdvReac Mild UPSET Verified 05/21/23 19:12 STOMACH pantoprazole AdvReac Mild UPSET Verified 05/21/23 19:12 STOMACH omeprazole AdvReac Unknown STOMACH Verified 05/21/23 19:12 CRAMPING oxycodone AdvReac Unknown Unknown Verified 05/21/23 19:12 Home Meds Home Medications Medication Instructions Recorded Confirmed albuterol sulfate 90 mcg/actuation 2 puff inhalation Q6H PRN 05/21/23 06/11/24 aerosol inhaler Shortness Of Breath acetaminophen 500 mg tablet 1,000 mg PO .Q4-6H PRN Pain 06/11/24 06/11/24 Results & Data (ED) Vital Signs Vital Signs - 24 hr 06/11/24 06:41 06/11/24 07:18 06/11/24 07:18 Temperature 36.6 C Temperature Source Temporal Artery Scan Pulse Rate 105 H Pulse Rate [Apical] 81 Pulse Rhythm Pulse Rhythm [Apical] Regular Pulse Strength [Apical] Normal Respiratory Rate 24 22 Respiratory Effort / Characteristics Non-Labored Spontaneous Non-Labored Spontaneous Respiratory Depth Normal Normal Respiratory Pattern Regular Regular Blood Pressure 135/85 Blood Pressure [Right Arm] 121/84 Blood Pressure Mean 101 Blood Pressure Mean [Right Arm] 96 Blood Pressure Position Sitting Blood Pressure Position [Right Arm] Pulse Oximetry 98 98 98 Oxygen Delivery Method Room Air Room Air Room Air Sepsis Recent Fever Within 48 Hours No Sepsis New/Unexplained Change in Mental Status No Sepsis Action Taken by Nursing No Action Required 06/11/24 07:18 06/11/24 07:20 06/11/24 08:15 Temperature Temperature Source Pulse Rate 78 81 Pulse Rate [Apical] 75 Pulse Rhythm Regular Pulse Rhythm [Apical] Regular Pulse Strength [Apical] Normal Respiratory Rate 22 18 Respiratory Effort / Characteristics Non-Labored Spontaneous Respiratory Depth Normal Respiratory Pattern Regular Blood Pressure Blood Pressure [Right Arm] 126/70 Blood Pressure Mean Blood Pressure Mean [Right Arm] 88 Blood Pressure Position Blood Pressure Position [Right Arm] Semi-fowlers Pulse Oximetry 98 97 Oxygen Delivery Method Room Air Room Air Sepsis Recent Fever Within 48 Hours Sepsis New/Unexplained Change in Mental Status Sepsis Action Taken by Nursing 06/11/24 08:30 06/11/24 09:53 06/11/24 10:30 Temperature Temperature Source Pulse Rate Pulse Rate [Apical] 85 73 81 Pulse Rhythm Pulse Rhythm [Apical] Regular Regular Regular Pulse Strength [Apical] Normal Normal Normal Respiratory Rate 20 20 18 Respiratory Effort / Characteristics Non-Labored Spontaneous Non-Labored Spontaneous Non-Labored Spontaneous Respiratory Depth Normal Normal Normal Respiratory Pattern Regular Regular Regular Blood Pressure Blood Pressure [Right Arm] 107/67 105/71 119/74 Blood Pressure Mean Blood Pressure Mean [Right Arm] 80 82 89 Blood Pressure Position Blood Pressure Position [Right Arm] Semi-fowlers Semi-fowlers Lying Pulse Oximetry 97 96 99 Oxygen Delivery Method Room Air Room Air Room Air Sepsis Recent Fever Within 48 Hours Sepsis New/Unexplained Change in Mental Status Sepsis Action Taken by Nursing 06/11/24 11:00 06/11/24 11:30 Temperature Temperature Source Pulse Rate Pulse Rate [Apical] 75 95 H Pulse Rhythm Pulse Rhythm [Apical] Regular Regular Pulse Strength [Apical] Normal Normal Respiratory Rate 20 18 Respiratory Effort / Characteristics Non-Labored Spontaneous Non-Labored Spontaneous Respiratory Depth Normal Normal Respiratory Pattern Regular Regular Blood Pressure Blood Pressure [Right Arm] 129/70 114/82 Blood Pressure Mean Blood Pressure Mean [Right Arm] 89 92 Blood Pressure Position Blood Pressure Position [Right Arm] Lying Lying Pulse Oximetry 99 99 Oxygen Delivery Method Room Air Room Air Sepsis Recent Fever Within 48 Hours Sepsis New/Unexplained Change in Mental Status Sepsis Action Taken by Nursing Laboratory Data 06/11/24 06:58 06/11/24 06:58 Lab Results 06/11/24 Range/Units 06:58 WBC 4.15 L (4.8-10.8) K/ul RBC 4.63 (4.20-5.40) M/uL Hgb 15.0 (12.0-16.0) g/dl Hct 43.6 (37.0-47.0) % MCV 94.2 (80.0-100.0) fL MCH 32.4 (25.0-34.0) pg MCHC 34.4 (32.0-36.0) g/dL RDW Std Deviation 40.8 (36.4-46.3) fL RDW Coeff of Twyla 11.9 (11.5-14.5) % Plt Count 226 (130-400) K/uL MPV 10.7 (9.4-12.4) fL Immature Gran % (Auto) 0.2 % Neut % (Auto) 50.6 % Lymph % (Auto) 39.8 % Kleberg % (Auto) 7.7 % Eos % (Auto) 1.2 % Baso % (Auto) 0.5 % Neut # (Auto) 2.10 (1.40-6.50) K/uL Lymph # (Auto) 1.65 (1.20-3.40) K/uL Kleberg # (Auto) 0.32 (0.11-0.59) K/uL Eos # (Auto) 0.05 (0.00-0.50) K/uL Baso # (Auto) 0.02 (0.00-0.20) K/uL Immature Gran # (Auto) 0.01 (0.01-0.20) K/uL Sodium 141 (136-145) mmol/L Potassium 3.7 (3.5-5.1) mmol/L Chloride 107 (98-107) mmol/L Carbon Dioxide 25 (21-32) mmol/L Anion Gap 9 (3-11) BUN 15 (6-23) mg/dl Creatinine 0.73 (0.6-1.2) mg/dl Est Cr Clr Drug Dosing 84.6 ml/min eGFR 96.46 BUN/Creatinine Ratio 20.5 H (10-20) Glucose 104 H (70-99(Fasting)) mg/dl Calcium 9.5 (8.6-10.3) mg/dl Total Bilirubin 1.0 (0.2-1.0) mg/dl AST 15 (13-39) U/L ALT 12 (7-52) U/L Alkaline Phosphatase 106 H (34-104) U/L Troponin I High Sens 2.3 (0-14) pg/ml Total Protein 6.9 (6.0-8.3) gm/dl Albumin 4.7 (3.4-5.0) gm/dl Globulin 2.2 L (2.5-4.0) gm/dl Albumin/Globulin Ratio 2.1 H (0.9-2) Lipase 10 L (11-82) U/L Administered Medications Famotidine (Famotidine 20 Mg Tab) 20 mg PO BID SARITA Stop: 07/11/24 11:44 Last Admin: 06/11/24 11:51 Dose: 20 mg Documented By: Magnesium Sulfate/Dextrose (Magnesium Sulfate / D5w) 1 gm in 100 mls @ 50 mls/hr IV Q2H SARITA Stop: 06/11/24 15:14 Last Admin: 06/11/24 13:41 Dose: 50 mls/hr Documented By: Infusion: 06/11/24 13:38 Dose: Infused Documented By: Admin: 06/11/24 11:29 Dose: 50 mls/hr Documented By: Discontinued Medications Acetaminophen (Ofirmev) 1,000 mg in 100 mls @ 400 mls/hr IV NOW STA Stop: 06/11/24 09:12 Last Infusion: 06/11/24 09:52 Dose: Infused Documented By: Admin: 06/11/24 09:14 Dose: 400 mls/hr Documented By: Ioversol (Optiray 320 100ml) 94 ml IV ONCE ONE Stop: 06/11/24 08:10 Last Admin: 06/11/24 08:10 Dose: 94 ml Documented By: BRENNA Metoprolol Tartrate (Metoprolol Tartrate 25 Mg Tab) 25 mg PO NOW STA Stop: 06/11/24 13:11 Last Admin: 06/11/24 13:41 Dose: 25 mg Documented By: LAVINIA Potassium Chloride (Potassium Chloride Crtab 20 Meq Tabcr) 40 meq PO NOW STA Stop: 06/11/24 11:12 Last Admin: 06/11/24 11:29 Dose: 40 meq Documented By: MSG Imaging Data Radiologist's Impression: Chest X-Ray 06/11/24 06:52 EXAM: XR chest 1V portable CLINICAL HISTORY: CP LTV/SNC INPATIENT TECHNIQUE: An X-ray image of the chest is obtained in AP projection. COMPARISON: No prior studies are available for comparison. FINDINGS: Pulmonary Parenchyma: Lungs are clear bilaterally. No evidence of consolidation, collapse, or focal opacities. No pulmonary nodules are identified. No evidence of pleural effusion or pleural thickening. Heart and Mediastinum: Heart size and shape are normal. No mediastinal widening or masses. No hilar or mediastinal lymphadenopathy. Bony Thorax: Bony thorax appears intact without fractures or deformities. Soft Tissues: Soft tissues overlying the chest wall are unremarkable. IMPRESSION: No acute cardiopulmonary abnormalities are identified. Electronically signed by Trevon Singh 06-11-2024 08:42 AM Abdomen/Pelvis CT 06/11/24 07:[address] WITH CONTRAST; CT ABDOMEN AND PELVIS WITH IV CONTRAST ONLY CT DOSE: 1716.24 mGy.cm HISTORY: Acute left-sided chest and abdominal pain without reported trauma Chest/abd pain, Left TECHNIQUE: Multiaxial CT images of the chest were performed following the IV administration of 94 cc of Optiray. A dose lowering technique was utilized adhering to the principles of ALARA. COMPARISON: CT abdomen and pelvis and CTA chest 11/16/2022 FINDINGS: CT CHEST: Subcentimeter right-sided thyroid nodule. Aberrant right subclavian artery. Heart is normal in size. No pericardial effusion or thoracic aortic aneurysm. The opacified pulmonary artery appears unremarkable. 3 mm calcified granuloma of the basal right lower lobe. No pneumothorax, pleural effusion or overt pulmonary edema. No airspace consolidation typical for pneumonia. Unremarkable soft tissues. Minimal bilateral rotator cuff calcific tendinosis. No acute fracture identified. Small bilateral C7 cervical ribs. Chronic T11 and T12 compression deformities. CT ABDOMEN/PELVIS: No pneumoperitoneum. Unremarkable spleen, pancreas and adrenal glands. Cholecystectomy with likely postsurgical biliary ductal dilation, unchanged. The liver is within normal limits. Patency of the hepatic and portal veins. Unremarkable kidneys without hydronephrosis. Partially decompressed urinary bladder with mild wall thickening. Hysterectomy. Unremarkable abdominal aorta. There is no lymphadenopathy. No bowel obstruction or bowel wall thickening. Mild colonic diverticulosis. Normal appendix. Tiny fat filled umbilical hernia. Degenerative and postoperative changes of the spine. L5-S1 laminectomy, discectomy with posterior body bri and screw fusion. IMPRESSION: 1. No acute intrathoracic, intra-abdominal or intrapelvic abnormality identified. 2. No bowel obstruction or bowel wall thickening. 3. Prior cholecystectomy and hysterectomy with lumbar spinal fusion. ACT 112: Negative or not required by law. Electronically signed by: Shmuel Oquendo M.D. 06/11/2024 8:[address] 06/11/24 07:[address] WITH CONTRAST; CT ABDOMEN AND PELVIS WITH IV CONTRAST ONLY CT DOSE: 1716.24 mGy.cm HISTORY: Acute left-sided chest and abdominal pain without reported trauma Chest/abd pain, Left TECHNIQUE: Multiaxial CT images of the chest were performed following the IV administration of 94 cc of Optiray. A dose lowering technique was utilized adhering to the principles of ALARA. COMPARISON: CT abdomen and pelvis and CTA chest 11/16/2022 FINDINGS: CT CHEST: Subcentimeter right-sided thyroid nodule. Aberrant right subclavian artery. Heart is normal in size. No pericardial effusion or thoracic aortic aneurysm. The opacified pulmonary artery appears unremarkable. 3 mm calcified granuloma of the basal right lower lobe. No pneumothorax, pleural effusion or overt pulmonary edema. No airspace consolidation typical for pneumonia. Unremarkable soft tissues. Minimal bilateral rotator cuff calcific tendinosis. No acute fracture identified. Small bilateral C7 cervical ribs. Chronic T11 and T12 compression deformities. CT ABDOMEN/PELVIS: No pneumoperitoneum. Unremarkable spleen, pancreas and adrenal glands. Cholecystectomy with likely postsurgical biliary ductal dilation, unchanged. The liver is within normal limits. Patency of the hepatic and portal veins. Unremarkable kidneys without hydronephrosis. Partially decompressed urinary bladder with mild wall thickening. Hysterectomy. Unremarkable abdominal aorta. There is no lymphadenopathy. No bowel obstruction or bowel wall thickening. Mild colonic diverticulosis. Normal appendix. Tiny fat filled umbilical hernia. Degenerative and postoperative changes of the spine. L5-S1 laminectomy, discectomy with posterior body bri and screw fusion. IMPRESSION: 1. No acute intrathoracic, intra-abdominal or intrapelvic abnormality identified. 2. No bowel obstruction or bowel wall thickening. 3. Prior cholecystectomy and hysterectomy with lumbar spinal fusion. ACT 112: Negative or not required by law. Electronically signed by: Shmuel Oquendo M.D. 06/11/2024 8:32 AM Discharge Plan Visit Data Chief Complaint: Arrhythmia/Palpitations Stated Complaint: PALPITATIONS,LFT SIDED PAIN UNDER ARM ALL WAY DOWN ED Provider: Angely Pizarro Discharge Problem: Chest pain, Ventricular tachycardia Discharge Instructions Interventions: ED Discharge Assessment Last Done: 06/11/24 13:56
[2024-06-11] MEDS: ACETAMINOPHEN 1,000 MG/100 ML VIAL IV STA (09:14)
[2024-06-11] MEDS: POTASSIUM CHLORIDE CRTAB 20 MEQ TABCR PO STA (11:29)
[2024-06-11] MEDS: MAGNESIUM SULFATE / D5W 1 GM/100 ML BAG IV SCH (11:29)
[2024-06-11] MEDS ORDERED: MAGNESIUM HYDROXIDE SUSP 30 ML UDC PO PRN (11:41)
[2024-06-11] MEDS ORDERED: NITROGLYCERIN SL 0.4 MG/TAB TAB SL PRN (11:41)
[2024-06-11] MEDS ORDERED: ALUMINUM/MAGNESIUM SUSP 30 ML UDC PO PRN (11:41)
[2024-06-11] MEDS: FAMOTIDINE 20 MG TAB PO SCH (11:51)
[2024-06-11] MEDS ORDERED: ALBUTEROL HFA 8 GM INHALER INH PRN (11:58)
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
[2024-06-11] MEDS: METOPROLOL TARTRATE 25 MG TAB PO STA (13:41)
[2024-06-11] MEDS: diphenhydrAMINE HCL 25 MG/10 ML UDC PO PRN (18:44)
[2024-06-11] MEDS: ACETAMINOPHEN 325 MG TAB PO PRN (20:06)
[2024-06-11] MEDS: HEPARIN SOD 5,000 UNIT/0.5 ML VIAL SQ SCH (21:47)
[2024-06-11] MEDS: METOPROLOL TARTRATE 25 MG TAB PO SCH (22:08)
[2024-06-12 08:12] LABS: Hematocrit (blood only) 41.5 % (37.0-47.0); Hemoglobin 14.4 g/dl (12.0-16.0); Mean Corpuscular Hemoglobin 32.6 pg (25.0-34.0); Mean Corpuscular Hgb Conc 34.7 g/dL (32.0-36.0); Mean Corpuscular Volume 93.9 fL (80.0-100.0); Mean Platelet Volume 10.5 fL (9.4-12.4); Platelet Count 213 K/uL (130-400); RDW Coefficient of Variation 11.8 % (11.5-14.5); RDW Standard Deviation 40.8 fL (36.4-46.3); Red Blood Count 4.42 M/uL (4.20-5.40); White Blood Count 4.26 K/ul (4.8-10.8)
[2024-06-12 08:23] LABS: Estimated Average Glucose 88 mg/dl; Hemoglobin A1C 4.7 % (4.5-5.6)
[2024-06-12 08:43] LABS: BUN Creatinine Ratio 18.3 (10-20); Calcium 9.1 mg/dl (8.6-10.3); Magnesium 2.1 mg/dl (1.7-2.4); Phosphorus 3.1 mg/dl (2.5-4.9)
--- NOTE | 2024-06-12 12:24 | Cardiology Progress Note ---
Date of Service June 12, 2024 Assessment & Plan (1) Wide-complex tachycardia: Plan: Sinus tachycardia with aberrant conduction (2) Left bundle branch block: Plan: Intermittent (3) Chest pain: (4) Abdominal pain: Plan 58-year-old female with history as outlined presenting with symptoms of intermittent abdominal pain and chest pain. Symptoms persisting for over the last 1 months time but worsened recently in the setting of acute emotional stressors. Patient sought ER evaluation for complaints. Abdominal and chest CT unremarkable Initial EKG with nonspecific ST segment change While in ER patient had wide-complex tachycardia of approximately 9 seconds in duration. 1. Wide-complex tachycardia: Review rhythm strips and subsequent EKGs demonstrates rate related left bundle branch block. No ventricular arrhythmias. Episode did occur however with chest tightness. We will check serial troponins Begin low-dose beta-chris with metoprolol tartrate 25 mg p.o. twice per day given intermittent chest abdominal pain and acute emotional stressor Echocardiogram preliminary demonstrates preserved wall motion without segmental abnormality during symptoms. Cardiovascular risk factors present with hemochromatosis and acute emotional stressor. Will follow in hospital Keep n.p.o. after midnight in case additional assessment required 06/12/2024 Patient still with persistent chest pressure pain. EKGs with intermittent left bundle branch block. Initial wide-complex tachycardia reflected sinus tachycardia with aberrant conduction. Variable T wave inversion in the anterior precordial leads when not in left bundle branch block No wall motion abnormalities on echocardiogram, troponins negative Discussed all above findings in detail with patient Concern raised regarding persistent chest pressure pain not resolved by initial testing. Beta-chris has aided in heart rate control, no hypertension no further conduction abnormalities. Given intermittent left bundle branch block and persistent symptoms will refer for diagnostic coronary angiography. Patient aware and agrees. Informed consent to be obtained Anticipate procedure later today Admission and Anticipated Discharge Date Admission Date: June 11, 2024 Subjective Patient was seen and examined, chart, medications, telemetry reviewed Still with persistent chest pressure sensation. No dyspnea no diaphoresis no tachypalpitations. Telemetry without arrhythmias. EKG this morning with T wave in anterior precordial leads. Review of Systems Review of Systems: All systems reviewed & are unremarkable except as noted in Subjective Physical Exam Constitutional: WD/WN, vitals as above no acute distress Eyes: PERRL, conjunctivae normal, anicteric sclerae ENMT: external ear and nose normal, oropharynx normal Neck: trachea midline, no thyromegaly Respiratory: normal respiratory effort, lungs clear to auscultation Cardiovascular: Rate/Rhythm: regular rate and regular rhythm Heart Sounds: normal S1 and normal S2; no murmur Vessels: no JVD Extremities: no edema Gastrointestinal (Abdomen): Percussion/Palpation: + abdomen tender (Mild tenderness left flank and left inguinal area) and abdomen soft Musculoskeletal: no cyanosis or clubbing, extremities motor strength 5/5 Skin: no rashes, warm and dry Results & Data Vital Signs (Past 12 Hours) Vital Signs Temp Pulse Pulse Resp BP Pulse Ox O2 Del Method 06/12/24 11:13 37.0 C 54 L 18 100/63 96 Room Air 06/12/24 08:58 57 L 06/12/24 07:23 36.8 C 65 17 100/65 96 Room Air 06/12/24 03:50 36.6 C 61 18 100/61 96 Room Air Laboratory Results Laboratory Results - last 24 hr 06/11/24 06/11/24 06/11/24 13:00 18:01 22:46 WBC RBC Hgb Hct MCV MCH MCHC RDW Std Deviation RDW Coeff of Twyla Plt Count MPV Sodium Potassium Chloride Carbon Dioxide Anion Gap BUN Creatinine Est Cr Clr Drug Dosing eGFR BUN/Creatinine Ratio Glucose Estimat Average Glucose Hemoglobin A1c Calcium Phosphorus Magnesium Troponin I High Sens 3.2 2.5 2.9 06/12/24 07:48 WBC 4.26 L RBC 4.42 Hgb 14.4 Hct 41.5 MCV 93.9 MCH 32.6 MCHC 34.7 RDW Std Deviation 40.8 RDW Coeff of Twyla 11.8 Plt Count 213 MPV 10.5 Sodium 141 Potassium 4.0 Chloride 108 H Carbon Dioxide 26 Anion Gap 7 BUN 15 Creatinine 0.82 Est Cr Clr Drug Dosing 74.0 eGFR 83.90 BUN/Creatinine Ratio 18.3 Glucose 94 Estimat Average Glucose 88 Hemoglobin A1c 4.7 Calcium 9.1 Phosphorus 3.1 Magnesium 2.1 Troponin I High Sens (4) Abdominal pain Abdominal location: epigastric Qualified Code(s): R10.13 - Epigastric pain
[2024-06-12] MEDS: ONDANSETRON INJ 2 MG/ML 2 ML VIAL ONE (13:40)
--- NOTE | 2024-06-12 13:45 | Pre Anesthesia Assessment ---
Date of Service June 12, 2024 Pre Sedation Assessment Vital Signs Temp Pulse Pulse Resp BP Pulse Ox O2 Del Method 06/12/24 13:10 70 14 111/64 99 Room Air 06/12/24 11:13 37.0 C 54 L 18 100/63 96 Room Air 06/12/24 08:58 57 L 06/12/24 07:23 36.8 C 65 17 100/65 96 Room Air 06/12/24 03:50 36.6 C 61 18 100/61 96 Room Air 06/11/24 23:50 61 06/11/24 23:13 36.5 C 72 18 95/61 L 95 Room Air 06/11/24 19:59 36.6 C 68 18 129/80 96 Room Air 06/11/24 16:23 36.4 C L 67 16 119/76 98 Room Air Cardiovascular RRR, no murmur, no edema Respiratory normal respiratory effort, lungs clear to auscultation Pre-Sedation Airway Assessment Smoking Status: Former smoker Hx Sleep Apnea: No Short, Thick Neck: No Thyromental Distance: > or= 3.5 Finger Breadths Oral Cavity: + WNL Mallampati Class: III ASA: ASA3 NPO Status Date of Last Intake of Fluids: 06/11/24 Time of Last Intake of Fluids: 18:00 Date of Last Intake of Solid Food: 06/11/24 Time of Last Intake of Solid Foods: 18:00 Procedure Planning Contraindications for Sedation: none Current Medications Reviewed: Yes Notes The planned sedation has been discussed with the patient. Informed Consent was obtained. I have identified the patient, determined the appropriateness of sedation and have assessed the patient immediately prior to the procedure. All medicine(s) and interventions are by my order.
[2024-06-12] MEDS: MIDAZOLAM HCL 1 MG/ML 2ML VIAL ONE (14:25)
[2024-06-12] MEDS: niCARdipine 2,000 MCG/20 ML SYR ONE (15:04)
[2024-06-12] MEDS: fentaNYL citrate PF 100 MCG/2 ML VIAL ONE (15:16)
[2024-06-12] MEDS: HEPARIN (PORCINE) 1000 UNIT/ML 10 ML (CATH LAB USE ONLY) ONE (15:16)
[2024-06-12] MEDS: OPTIRAY 350 ONE (15:16)
[2024-06-12] MEDS: NITROGLYCERIN/D5W 100MCG/ML 20ML SYR ONE (15:17)
--- NOTE | 2024-06-12 15:26 | Cardiac Catheterization ---
Cardiac Cath Procedure Brief Procedure Date June 12, 2024 Pre-Procedure Diagnosis Pre-Procedure Diagnosis: Arrhythmia AUC Score AUC Score: 7 Post-Procedure Diagnosis Post-Procedure Diagnosis: Normal Coronary Arteries Procedure(s) Performed Procedure(s) Performed: Coronary Angiography Spinner Continuous Ivan Magana MD Office Spec(s) Hillary Kaplan Estimated Blood Loss Estimated Blood Loss: <15cc Medication(s) Medication(s): Fentanyl (25 mcg IV), Heparin (5000 units IV), Lidocaine 1% (Local infiltration access site), Nicardipine (250 mcg intra-arterial after arterial sheath insertion) and Versed (1 mg IV x 2) Preliminary Findings Impression: Normal right dominant coronory anatomy Recommendations Recommendations: Medical Therapy and/or Counseling Specimens Specimens: None Anesthesia Start 1457, Stop 1513 Procedural Complication(s) None Disposition PCU
--- NOTE | 2024-06-12 15:36 | Cardiac Catheterization ---
Cardiac Cath Procedure Full Procedure Date June 12, 2024 Pre-Procedure Diagnosis Pre-Procedure Diagnosis: Arrhythmia AUC Score AUC Score: 7 Post-Procedure Diagnosis Post-Procedure Diagnosis: Normal Coronary Arteries Procedure(s) Performed Procedure(s) Performed: Coronary Angiography Auto Washer Ivan Magana MD Coding Technician(s) Hillary Kaplan Estimated Blood Loss Estimated Blood Loss: <15cc Medication(s) Medication(s): Fentanyl (25 mcg IV), Heparin (5000 units IV), Lidocaine 1% (Local infiltration access site), Nicardipine (250 mcg intra-arterial after arterial sheath insertion) and Versed (1 mg IV x 2) Summary of Findings Impression: Normal right dominant coronory anatomy Hemodynamics Rest Ao:: 114/78/97 Final Ao: 104/57/79 LV: 106/0/2 Recommendations Recommendations: Medical Therapy and/or Counseling Specimens Specimens: None Radiation Exposure (mGy) 317 Contrast (mls) 45 Anesthesia Start 1457, Stop 1513 Procedural Complication(s) None Disposition PCU I attest to the content of the Intraoperative Record and any orders documented therein. Any exceptions are noted below. 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 Clinical evaluation leading to the procedure 58-year-old female in the setting of acute emotional stressor presented with severe acute on chronic substernal chest pain, intermittent left bundle branch block with T wave inversion in nonbundle branch block tracings anteriorly CAD Presenation: Sx unlikely to be ischemic Anginal Classification: No Symptoms Heart Failure: No Cardiogenic Shock within 24 Hours: No Cardiac Arrest within 24 Hours: No Imaging Studies Past 6 Months: Yes Stress Studies Past 6 Months: No Standard Exercise Test: No Stress Echocardiogram: No Stress Testing w/SPECT MPI: No Cardiac CTA: No Coronary Anatomy Dominant: Right Left Main (% Stenosis): Normal (Short) LAD (% Stenosis): Normal (Type II) D1 (% Stenosis): Normal D2 (% Stenosis): Normal Circumflex (% Stenosis): Normal OM1 (% Stenosis): Normal OM2 (% Stenosis): Normal OM3 (% Stenosis): Normal L PL1 (% Stenosis): Normal RCA (% Stenosis): Normal R PDA (% Stenosis): Ostial (Catheter induced spasm on initial engagement) and Normal R PL1 (% Stenosis): Normal Left Ventricular Angiography EF (%): N/A Diagnostic Physicians Name: Ivan Magana MD Status: Urgent Closure Device Percutaneous Entry Location: Radial Closure Device: Radial Band Recommendations: Medical Therapy and/or Counseling
--- NOTE | 2024-06-12 15:54 | Hospitalist Progress Note ---
Date of Service June 12, 2024 Assessment & Plan (1) Chest pain: Plan Ms. Atknis is a 58-year-old female with history of hemochromatosis and asthma who presented to ED for severe acute on chronic substernal chest pain in the setting of acute emotional stressor the past week. There was concern for VT, however, it was noted that she had intermittent left bundle branch block with T wave inversion. Cardiology pursued [facility] today without signs of any coronary disease. ECHO re vealing mild septal motion c/w conduction abnormality, however EF 55-60% #Left bundle branch block, intermittent #Wide complex tachycardia #Chest pain Admitting troponin negative, will trend troponin, monitor strip with intermitted LBBB and tWI ECHO with EF 55-60%, septal motion changes LHC no CAD started on metoprolol XL 12.5mg BID Cardiology following -plan to maintain on tele over night with post cath protocol #abdominal pain #Possible GERD ISO hiatal hernia: reports some improvement with famotidine, continue CT ABP with no clear eitology # asthma: Currently stable, continue albuterol as needed. # hemochromatosis: Follows Dr. Pizarro, last phlebotomy last month. DVT prophylaxis: Heparin subcu Full code Admission and Anticipated Discharge Date Admission Date: June 11, 2024 Subjective Evaluated patient at bedside s/p cath Patient states her abdominal pain was present prior to the trauma she experienced this past week, but that the trauma likely exacerbated her symptoms--prompting her presentation She states that she doesn't have any chest pain post cath but feels a headache coming on given lack of food/water today Physical Exam Constitutional: WD/WN, vitals as above Respiratory: normal respiratory effort, lungs clear to auscultation Cardiovascular: RRR, no murmur, no edema Gastrointestinal (Abdomen): normal bowel sounds, soft, nontender, no hepatosplenomegaly Results & Data Results & Data Vital Signs (Past 12 Hours) Vital Signs Temp Pulse Pulse Resp BP Pulse Ox O2 Del Method 06/12/24 15:30 58 L 14 114/69 97 Room Air 06/12/24 15:29 57 L 14 109/69 97 Room Air 06/12/24 13:10 70 14 111/64 99 Room Air 06/12/24 11:13 37.0 C 54 L 18 100/63 96 Room Air 06/12/24 08:58 57 L 06/12/24 07:23 36.8 C 65 17 100/65 96 Room Air Laboratory Results Short CBC 06/12/24 Range/Units 07:48 WBC 4.26 L (4.8-10.8) K/ul Hgb 14.4 (12.0-16.0) g/dl Hct 41.5 (37.0-47.0) % Plt Count 213 (130-400) K/uL BMP 06/12/24 07:48 Sodium 141 Potassium 4.0 Chloride 108 H Carbon Dioxide 26 BUN 15 Creatinine 0.82 Glucose 94 Calcium 9.1 Medications Administered Home Medications Medication Instructions Recorded Confirmed Last Taken albuterol sulfate 90 mcg/actuation 2 puff inhalation Q6H PRN 05/21/23 06/11/24 10/30/22 aerosol inhaler Shortness Of Breath acetaminophen 500 mg tablet 1,000 mg PO .Q4-6H PRN Pain 06/11/24 06/11/24 Unknown Active Medications Generic Name Dose Route Start Last Admin Trade Name Freq PRN Reason Stop Dose Admin Acetaminophen 650 mg 06/11/24 11:41 06/12/24 08:46 Acetaminophen 325 Mg Tab PO 07/11/24 11:40 650 mg Q4H PRN Administration Pain or Fever Diphenhydramine HCl 12.5 mg 06/11/24 16:45 06/12/24 07:35 Diphenhydramine Hcl 25 Mg/10 Ml Udc PO 07/11/24 16:44 12.5 mg Q6H PRN Administration allergic reaction Famotidine 20 mg 06/11/24 11:45 06/12/24 07:34 Famotidine 20 Mg Tab PO 07/11/24 11:44 20 mg BID SARITA Administration Heparin Sodium (Porcine) 5,000 units 06/11/24 21:00 06/12/24 07:35 Heparin Sod 5,000 Unit/0.5 Ml Vial SQ 07/11/24 20:59 Not Given Q12 SARITA
[2024-06-12] MEDS: ACETAMINOPHEN 500 MG TAB PO STA (16:31)
--- NOTE | 2024-06-12 16:47 | Communication Note ---
Date of Service: June 12, 2024 Patient referred underwent coronary angiography. Normal right dominant coronary anatomy observed tolerated procedure well with possible mild migrainous changes post procedure. Discussed concerns including acute emotional stressors abdominal pain and chest pain Intermittent/rate related left bundle branch block with resultant appearance of wide-complex tachycardia. Plan change metoprolol to tartrate to metoprolol succinate 12.5 mg twice per day. Maintain telemetry overnight with post cath instruction
--- NOTE | 2024-06-12 19:07 | Electrocardiogram Report ---
Test Reason : Blood Pressure : */* mmHG Vent. Rate : 67 BPM Atrial Rate : 67 BPM P-R Int : 148 ms QRS Dur : 70 ms QT Int : 410 ms P-R-T Axes : 59 56 35 degrees QTcB Int : 433 ms Normal sinus rhythm Nonspecific T wave abnormality Abnormal ECG When compared with ECG of 11-Jun-2024 06:49, (unconfirmed) No significant change was found Confirmed by Shannan Null ([place]) on 06/12/2024 7:07:23 PM Referred By: REFERRED SELF Confirmed By: Shannan Null
--- NOTE | 2024-06-12 19:07 | Electrocardiogram Report ---
Test Reason : Blood Pressure : */* mmHG Vent. Rate : 77 BPM Atrial Rate : 77 BPM P-R Int : 124 ms QRS Dur : 72 ms QT Int : 374 ms P-R-T Axes : 58 61 36 degrees QTcB Int : 423 ms Normal sinus rhythm Abnormal ECG When compared with ECG of 30-Jan-2023 04:29, Non-specific change in ST segment in Lateral leads Inverted T waves have replaced nonspecific T wave abnormality in Anterior leads Confirmed by Shannan Null ([place]) on 06/12/2024 7:07:14 PM Referred By: REFERRED SELF Confirmed By: Shannan Null
--- NOTE | 2024-06-12 19:08 | Electrocardiogram Report ---
Test Reason : Blood Pressure : */* mmHG Vent. Rate : 80 BPM Atrial Rate : 80 BPM P-R Int : 136 ms QRS Dur : 74 ms QT Int : 388 ms P-R-T Axes : 59 57 31 degrees QTcB Int : 447 ms Normal sinus rhythm Nonspecific T wave abnormality Abnormal ECG When compared with ECG of 11-Jun-2024 09:07, (unconfirmed) No significant change was found Confirmed by Shannan Null ([place]) on 06/12/2024 7:07:35 PM Referred By: REFERRED SELF Confirmed By: Shannan Null
--- NOTE | 2024-06-12 19:08 | Electrocardiogram Report ---
Test Reason : Blood Pressure : */* mmHG Vent. Rate : 105 BPM Atrial Rate : 105 BPM P-R Int : 118 ms QRS Dur : 112 ms QT Int : 356 ms P-R-T Axes : 82 56 97 degrees QTcB Int : 470 ms Sinus tachycardia Incomplete left bundle block Nonspecific ST and T wave abnormality Abnormal ECG When compared with ECG of 11-Jun-2024 10:32, (unconfirmed) Incomplete left bundle block is now Present Confirmed by Shannan Null ([place]) on 06/12/2024 7:07:54 PM Referred By: REFERRED SELF Confirmed By: Shannan Null
--- NOTE | 2024-06-12 19:08 | Electrocardiogram Report ---
Test Reason : Blood Pressure : */* mmHG Vent. Rate : 69 BPM Atrial Rate : 69 BPM P-R Int : 140 ms QRS Dur : 72 ms QT Int : 400 ms P-R-T Axes : -27 49 41 degrees QTcB Int : 428 ms Normal sinus rhythm T wave abnormality, consider anterolateral ischemia Abnormal ECG When compared with ECG of 11-Jun-2024 13:08, (unconfirmed) Vent. rate has decreased by 36 bpm Incomplete left bundle block is no longer Present , anteroseptal T wave depression is now present Confirmed by Shannan Null ([place]) on 06/12/2024 7:08:32 PM Referred By: REFERRED SELF Confirmed By: Shannan Null
--- NOTE | 2024-06-12 19:09 | Electrocardiogram Report ---
Test Reason : Blood Pressure : */* mmHG Vent. Rate : 58 BPM Atrial Rate : 58 BPM P-R Int : 130 ms QRS Dur : 80 ms QT Int : 416 ms P-R-T Axes : 76 88 65 degrees QTcB Int : 408 ms Sinus bradycardia Nonspecific T wave abnormality Abnormal ECG When compared with ECG of 11-Jun-2024 16:54, (unconfirmed) T wave inversion no longer evident in Lateral leads Confirmed by Shannan Null ([place]) on 06/12/2024 7:09:06 PM Referred By: REFERRED SELF Confirmed By: Shannan Null
[2024-06-12] MEDS: METOPROLOL SUCC 25MG EXT REL TAB PO SCH (20:28)
[2024-06-13 06:48] LABS: Hematocrit (blood only) 40.4 % (37.0-47.0); Hemoglobin 14.1 g/dl (12.0-16.0); Mean Corpuscular Hemoglobin 32.6 pg (25.0-34.0); Mean Corpuscular Hgb Conc 34.9 g/dL (32.0-36.0); Mean Corpuscular Volume 93.5 fL (80.0-100.0); Mean Platelet Volume 10.5 fL (9.4-12.4); Platelet Count 209 K/uL (130-400); RDW Coefficient of Variation 11.6 % (11.5-14.5); RDW Standard Deviation 39.9 fL (36.4-46.3); Red Blood Count 4.32 M/uL (4.20-5.40); White Blood Count 4.56 K/ul (4.8-10.8)
[2024-06-13 07:11] LABS: BUN Creatinine Ratio 15.7 (10-20); Calcium 9.1 mg/dl (8.6-10.3); Creatinine Clr Calc Pharmacy 68.3 ml/min; Phosphorus 3.3 mg/dl (2.5-4.9); Potassium 4.2 mmol/L (3.5-5.1)
[2024-06-13 07:19] VITALS: RESP 17
[2024-06-13 11:16] VITALS: TEMP 97.7; O2SAT 96
--- NOTE | 2024-06-13 12:18 | Cardiology Progress Note ---
Date of Service June 13, 2024 Assessment & Plan (1) Wide-complex tachycardia: Plan: Sinus tachycardia with aberrant conduction (2) Left bundle branch block: Plan: Intermittent (3) Chest pain: (4) Abdominal pain: Plan 58-year-old female with history as outlined presenting with symptoms of intermittent abdominal pain and chest pain. Symptoms persisting for over the last 1 months time but worsened recently in the setting of acute emotional stressors. Patient sought ER evaluation for complaints. Abdominal and chest CT unremarkable Initial EKG with nonspecific ST segment change While in ER patient had wide-complex tachycardia of approximately 9 seconds in duration. 1. Wide-complex tachycardia: Review rhythm strips and subsequent EKGs demonstrates rate related left bundle branch block. No ventricular arrhythmias. Episode did occur however with chest tightness. We will check serial troponins Begin low-dose beta-chris with metoprolol tartrate 25 mg p.o. twice per day given intermittent chest abdominal pain and acute emotional stressor Echocardiogram preliminary demonstrates preserved wall motion without segmental abnormality during symptoms. Cardiovascular risk factors present with hemochromatosis and acute emotional stressor. Will follow in hospital Keep n.p.o. after midnight in case additional assessment required 06/12/2024 Patient still with persistent chest pressure pain. EKGs with intermittent left bundle branch block. Initial wide-complex tachycardia reflected sinus tachycardia with aberrant conduction. Variable T wave inversion in the anterior precordial leads when not in left bundle branch block No wall motion abnormalities on echocardiogram, troponins negative Discussed all above findings in detail with patient Concern raised regarding persistent chest pressure pain not resolved by initial testing. Beta-chris has aided in heart rate control, no hypertension no further conduction abnormalities. Given intermittent left bundle branch block and persistent symptoms will refer for diagnostic coronary angiography. Patient aware and agrees. Informed consent to be obtained Anticipate procedure later today Admission and Anticipated Discharge Date Admission Date: June 11, 2024 Results & Data Vital Signs (Past 12 Hours) Vital Signs Temp Pulse Pulse Resp BP Pulse Ox O2 Del Method 06/13/24 11:15 36.5 C 66 17 103/67 96 Room Air 06/13/24 08:00 68 06/13/24 07:56 113/75 06/13/24 07:18 36.6 C 80 17 120/80 99 Room Air 06/13/24 03:32 36.7 C 58 L 19 99/65 L 95 Room Air (4) Abdominal pain Abdominal location: epigastric Qualified Code(s): R10.13 - Epigastric pain
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
[2024-06-13 13:04] VITALS: BP 121/78; PULSE 79
--- NOTE | 2024-06-14 08:58 | Electrocardiogram Report ---
Test Reason : Blood Pressure : */* mmHG Vent. Rate : 59 BPM Atrial Rate : 59 BPM P-R Int : 136 ms QRS Dur : 84 ms QT Int : 442 ms P-R-T Axes : 55 58 40 degrees QTcB Int : 437 ms Sinus bradycardia Nonspecific T wave abnormality Anterior leads Abnormal ECG When compared with ECG of 12-Jun-2024 05:43, No significant change was found Confirmed by Akin Cobos ([id number]) on 06/14/2024 8:58:32 AM Referred By: REFERRED SELF Confirmed By: Akin Cobos
== END 2024-06-13 13:49 | disposition home or self-care (01) | DRG 287 ==
LOC: ED 06:35 → SUATTDRO 11:42 → EDINP 11:42 → 2S 14:00
DX: E83.119 Hemochromatosis, unspecified; G43.909 Migraine, unspecified, not intractable, without status migrainosus; I47.19 Other supraventricular tachycardia; I44.7 Left bundle-branch block, unspecified; Z91.040 Latex allergy status; Z88.2 Allergy status to sulfonamides; Z88.0 Allergy status to penicillin; K44.9 Diaphragmatic hernia without obstruction or gangrene; K21.9 Gastro-esophageal reflux disease without esophagitis; Z98.1 Arthrodesis status; J45.909 Unspecified asthma, uncomplicated; Z88.6 Allergy status to analgesic agent

== ENCOUNTER 2024-11-30 05:47 | Observation (INO) ==
--- NOTE | 2024-11-09 11:39 | PAT Medication Instructions ---
Medication Instructions Date of Service November 09, 2024 Home Medications Medication Instructions Recorded famotidine 20 mg tablet 20 mg PO BID #60 tabs 06/13/24 diazepam 5 mg tablet 5 mg PO .COMPLEX PRN anxiety #3 10/18/24 tabs albuterol sulfate 90 mcg/actuation aerosol inhaler 2 puff inhalation Q6H PRN Shortness Of Breath acetaminophen 500 mg tablet 1,000 mg PO .Q4-6H PRN Pain famotidine 20 mg tablet 20 mg PO BID diazepam 5 mg tablet 5 mg PO .COMPLEX PRN anxiety lidocaine 4 % topical patch 1 patch topical DAILY PRN Pain lidocaine 5 % topical cream 1 applic topical QID PRN Pain metoprolol tartrate 25 mg tablet 25 mg PO QAM Continue as directed lidocaine 4 % topical patch 1 patch topical DAILY PRN Pain > Avoid placement near surgical site prior to surgery STOP taking 24 hours before surgery lidocaine 5 % topical cream 1 applic topical QID PRN Pain Take morning of surgery With a small sip of water, OTHERWISE NOTHING TO EAT OR DRINK AFTER MIDNIGHT: albuterol sulfate 90 mcg/actuation aerosol inhaler 2 puff inhalation Q6H PRN Shortness Of Breath (use if needed; please bring rescue inhaler with you to hospital day of surgery if possible) acetaminophen 500 mg tablet 1,000 mg PO .Q4-6H PRN Pain (if needed) famotidine 20 mg tablet 20 mg PO BID diazepam 5 mg tablet 5 mg PO .COMPLEX PRN anxiety (if needed) metoprolol tartrate 25 mg tablet 25 mg PO QAM Take evening before surgery albuterol sulfate 90 mcg/actuation aerosol inhaler 2 puff inhalation Q6H PRN Shortness Of Breath (if needed) acetaminophen 500 mg tablet 1,000 mg PO .Q4-6H PRN Pain (if needed) famotidine 20 mg tablet 20 mg PO BID diazepam 5 mg tablet 5 mg PO .COMPLEX PRN anxiety (if needed) Other Notes If you have any questions please call us at [phone] or [phone] or [phone] or [phone]
--- NOTE | 2024-11-14 09:19 | Anesthesiology Consultation ---
Date of Service November 14, 2024 Assessment & Plan (1) Encounter for pre-operative examination: - awaiting [facility] PCP 11/20/24 and hematology 11/22/24 pre-operative evaluations. Will obtain 11/12/24 EKG once uploaded into [facility] EMR from cardio visit of same date. - Pt states that any form of adhesive needs to be avoided and in situations where this is not possible needs to be used for minimal amount of time and then area wiped with alcohol once it is removed. OR made aware. - cardiology office visit 11/12/24 [facility]: "...Palpitations. Hypotension. LBBB. Paroxysmal atrial tachycardia - Zio monitor (2019). Hereditary hemochromatosis (occasional phlebotomy)...lumbar spinal surgery with Dr. Marco Raya at [facility] on 11/30/24...two episodes of heart racing while she was sitting at her computer and working since last visit. Her vision got blurry, but denies syncope. Her heart rates increased into 130s. It took 15-20 minutes for episode to resolve and heart rate decreased to 115 bpm. She tried deep breathing, changing positions, and Valsalva maneuvers with no success. Went to lay down and palpitations resolved by the time she woke up. She notes dull, aching discomfort across her chest after the episode. She did not take an extra 1/2 tablet of metoprolol tartrate for heart racing...Ongoing atypical chest discomfort likely secondary to paroxysmal SVT-Recent Zio monitor (07/2024) showed brief runs of paroxysmal SVT lasting 8-9 beats and symptoms correlated with episodes-Asymptomatic with borderline low blood pressure-Switched from metoprolol tartrate to metoprolol succinate ER 25 mg once daily in the evening...Pre-operative cardiac e xamination-EKG performed in office today with no acute ischemic changes-In terms of preop risk assessment, per [facility]inny Criteria, patient was counseled that she would be placed at a low risk for any adverse perioperative cardiovascular events associated with lumbar spinal surgery. Patient is on a good medication regimen and no other cardiac testing or interventions would further lower that risk. Patient states she understands and is accepting of that risk and wishes to proceed with surgery-Would recommend continuing metoprolol succinate perioperatively..." Chart Review Chart Review: Pending: Refer to Additional Notes / Consult section and Patient seen in Pre Admission Testing Teaching & Discussion Pre-Anesthesia Teaching/Discussion Notes: Instructed NPO after midnight before surgery, except medications with 15 cc of water. Medication instructions provided according to the PAT guidelines. History Surgery Operation Date: 11/30/24 07:30 Proposed Procedures p Transforaminal Lumbar Interbody Fusion L4-L5, Removal L5-S1 Screws, CT Naviagation - Marco Raya MD Height/Weight Height: 5 ft 4 in Weight: 72.575 kg Allergies Allergy/AdvReac Type Severity Reaction Status Date / Time aspirin Allergy Severe Hives Verified 11/06/24 14:46 cephalexin Allergy Severe Difficulty Verified 11/06/24 14:46 Breathing, Hives Cephalosporins Allergy Severe Difficulty Verified 11/06/24 14:46 Breathing, Hives diclofenac Allergy Severe Hives Verified 11/06/24 14:46 latex Allergy Severe Hives Verified 11/06/24 14:46 Penicillins Allergy Severe Hives, Verified 11/06/24 14:46 Gastrointestinal Upset adhesive Allergy Intermediate Hives Verified 11/06/24 14:46 omeprazole Allergy Intermediate Stomach Verified 11/06/24 14:46 Cramping, Chest Pains, Vomiting, Rash, Hives Sulfa (Sulfonamide Allergy Intermediate Rash Verified 11/06/24 14:46 Antibiotics) codeine AdvReac Severe Chest Verified 11/06/24 14:46 Pain, Vomiting oxycodone AdvReac Severe "Mental Verified 11/06/24 14:46 Switch" almond AdvReac Intermediate Gastrointestinal Verified 11/06/24 14:46 Upset asparagus AdvReac Intermediate Gastrointestinal Verified 11/06/24 14:46 Upset banana AdvReac Intermediate Gastrointestinal Verified 11/06/24 14:46 Upset cashew nut AdvReac Intermediate Gastrointestinal Verified 11/06/24 14:46 Upset coffee (Coffea arabica) AdvReac Intermediate Gastrointestinal Verified 11/06/24 14:46 Upset egg AdvReac Intermediate Gastrointestinal Verified 11/06/24 14:46 Upset garlic AdvReac Intermediate Gastrointestinal Verified 11/06/24 14:46 Upset phoebe AdvReac Intermediate Gastrointestinal Verified 11/06/24 14:46 Upset gluten AdvReac Intermediate Gastrointestinal Verified 11/06/24 14:46 Upset, Diarrhea lactose AdvReac Intermediate Gastrointestinal Verified 11/06/24 14:46 Upset lubiprostone AdvReac Intermediate Shakiness, Verified 11/06/24 14:46 vomiting morphine AdvReac Intermediate Gastrointestinal Verified 11/06/24 14:46 Upset, Vomiting mushroom AdvReac Intermediate Gastrointestinal Verified 11/06/24 14:46 Upset pantoprazole AdvReac Intermediate Gastrointestinal Verified 11/06/24 14:46 Upset, Chest Pain, Vomiting peanut AdvReac Intermediate Gastrointestinal Verified 11/06/24 14:46 Upset pineapple AdvReac Intermediate Gastrointestinal Verified 11/06/24 14:46 Upset rye grass AdvReac Intermediate Gastrointestinal Verified 11/06/24 14:46 Upset brewers yeast AdvReac Intermediate Gastrointestinal Uncoded 11/06/24 14:46 Upset Medications Home Medications Medication Instructions Recorded Confirmed Last Taken albuterol sulfate 90 mcg/actuation 2 puff inhalation Q6H PRN 05/21/23 11/06/24 10/30/22 aerosol inhaler Shortness Of Breath acetaminophen 500 mg tablet 1,000 mg PO .Q4-6H PRN Pain 06/11/24 11/06/24 Unknown famotidine 20 mg tablet 20 mg PO BID #60 tabs 06/13/24 11/06/24 Unknown lidocaine 4 % topical patch 1 patch topical DAILY PRN Pain 11/06/24 11/06/24 U nknown lidocaine 5 % topical cream 1 applic topical QID PRN Pain 11/06/24 11/06/24 Unknown metoprolol succinate 25 mg mg PO QPM 11/14/24 Unknown tablet,extended release 24 hr Past Medical History Medical History (Updated 11/14/24 @ 09:39 by Dulce Maria Patterson PA-C) Adjacent segment disease of lumbar spine with history of fusion procedure Asthma PRN inhaler - seasonal Claustrophobia Compression fracture L3-4 > no surgical intervention> fusion is below Cracked tooth x2 "top right" unable to be fixed d/t patient can't sit in dental chair - as per patient Deviated nasal septum no repair Dupuytren contracture of both hands GERD (gastroesophageal reflux disease) Hemochromatosis [facility] - unsure when last phlebotomy Hiatal hernia History of back problems has had branch blocks, ablations, and steriod injections Hx of chest pain pt denies at this time - [facility] Hx of endometriosis s/p total hysterectomy Hypotension "normal, my top number can somtimes go into the 80's." as per patient - [facility] IBS (irritable bowel syndrome) resolved - "its the food" intolerance as per patient Left bundle branch block (LBBB) Mitral valve regurgitation Mild, noted on 2019 stress echo. Palpitations Paroxysmal atrial tachycardia Supraventricular tachycardia TMJ (temporomandibular joint disorder) pt denies clicking or locking, "a lot of grinding" as per patient Ventricular tachycardia [facility] Patient denies h/o stroke, seizures, heart attack, heart failure, DM, blood clots/DVTs or blood transfusions. Exercise / Class Metabolic Activity III < 4 Walking/Shop/Light housework (intermittent chest discomfort and shortness of breath with usual activities ongoing for several months-following with [facility] cardiology-denies change or worsening since seeing cardiology) Past Family History Family History Mother Diabetes Grandfather Diabetes Past Surgical History Surgical History (Updated 11/14/24 @ 09:37 by Dulce Maria Patterson PA-C) History of anesthesia reaction memory loss after a procedure done at [facility] > unsure of details History of ankle surgery bilateral History of arthroscopy bilateral knees History of cholecystectomy (1988) History of colonoscopy History of dilatation and curettage History of esophagogastroduodenoscopy (EGD) History of foot surgery x2, left History of hand surgery bilat History of hemorrhoidectomy (03/2013) History of hysterectomy History of lumbar fusion Hardware present History of lumpectomy of both breasts "fibroadenomas" Hx of cardiac catheterization (06/2024) [facility] Hx of cervical spine surgery laser C5-C6 > Full ROM as per patient Hx of elbow surgery right Nausea and vomiting after administration of anesthetic agent Russell teeth extracted hx Past Anesthesia History No Family Hx of Anesthesia Complications and Other (as above) History of PONV History of PONV (does well with IV pre-dosing, denies needing scop patch) and Hx of Motion Sickness Social History Smoking Status: Never smoker Do You Dip or Chew Tobacco: No Hx Alcohol Use: No Hx Substance Use: No substance use type: does not use Review of Systems Snoring, denies witnessed apneas. Patient denies fever, chills, cough, wheezing, or palpitations. Physical Exam Vital Signs Vitals BP 99/70 P 70 TEMP 97.7 SP02 95% on RA RESP 17 Physical Patient resting comfortably in chair in no acute distress, alert and oriented, responding appropriately throughout visit Full cervical extension range of motion without pain TMD 3.5 finger breadths Mallampati Score 2 Dentition: two chipped teeth, front four teeth are capped; denies loose teeth, implants or bridges Lungs: normal respiratory effort. Good air movement, clear throughout to auscultation, no adventitious breath sounds Cardiac: regular rate and rhythm, no murmurs noted Carotid arteries: negative bruit bilat Lab Results Anesthesia Preop Results Results Anesthesia Widget: WBC 3.54 K/ul (4.8-10.8) L 11/14/24 Hgb 14.7 g/dl (12.0-16.0) 11/14/24 Hct 41.0 % (37.0-47.0) 11/14/24 Plt 175 K/uL (130-400) 11/14/24 Na 140 mmol/L (136-145) 11/14/24 K 4.3 mmol/L (3.5-5.1) 11/14/24 Cl 108 mmol/L (98-107) H 11/14/24 CO2 27 mmol/L (21-32) 11/14/24 BUN 12 mg/dl (6-23) 11/14/24 Creat 0.76 mg/dl (0.6-1.2) 11/14/24 Glucose Level 97 mg/dl (70-99(Fasting)) 11/14/24 PT 11.7 Seconds (9.0-12.0) 11/14/24 PTT 31 Seconds (21-31) 11/14/24 INR 1.1 (0.9-1.1) 11/14/24 HA1c 5.1 % (4.5-5.6) 11/14/24 Testing Electrocardiogram Date: 07/13/24 Sinus bradycardia, rate 59 bpm Nonspecific T wave abnormality Chest X-Ray Date: 06/11/24 *1 view* No acute cardiopulmonary abnormalities are identified. Echocardiogram Date: 06/11/24 EF 55-60% No regional wall motion abnormalities Grade I diastolic dysfunction Septal motion is consistent with conduction abnormality No significant valvular disease Cardiac Catheterization Date: 06/12/24 Dominant: Right Left Main (% Stenosis): Normal (Short) LAD (% Stenosis): Normal (Type II) D1 (% Stenosis): Normal D2 (% Stenosis): Normal Circumflex (% Stenosis): Normal OM1 (% Stenosis): Normal OM2 (% Stenosis): Normal OM3 (% Stenosis): Normal L PL1 (% Stenosis): Normal RCA (% Stenosis): Normal R PDA (% Stenosis): Ostial (Catheter induced spasm on initial engagement) and Normal R PL1 (% Stenosis): Normal Recommendations: Medical Therapy and/or Counseling Other Testing Chest, abdomen and pelvis CT 06/11/24 1. No acute intrathoracic, intra-abdominal or intrapelvic abnormality identified. 2. No bowel obstruction or bowel wall thickening. 3. Prior cholecystectomy and hysterectomy with lumbar spinal fusion. monitor and storage bin tender 07/23/24 Patient had a min HR of 48 bpm, max HR of 188 bpm, and avg HR of 75 bpm. Predominant underlying rhythm was Sinus Rhythm. Intermittent Bundle Branch Block was present. 5 Supraventricular Tachycardia runs occurred, the run with the fastest interval lasting 8 beats with a max rate of 188 bpm, the longest lasting 9 beats with an avg rate of 139 bpm. Supraventricular Tachycardia was detected within +/- 45 seconds of symptomatic patient event(s). Isolated SVEs were rare (<1.0%), SVE Couplets were rare (<1.0%), and SVE Triplets were rare (<1.0%). Isolated VEs were rare (<1.0%), and no VE Couplets or VE Triplets were present. Symptoms correlate with supraventricular tachycardia and sinus rhythm.
--- OUTSIDE RECORDS SUMMARY | 2024-11-30 06:00 | External Medical Summary ---
Author Name Unknown Address Unknown Organization [id number] [place] [address] Laboratory Report Ordering Provider Test Date Status DELORES MALHOTRA 11/20/2024 10:26:54 Final Observation Date Value Abnormality Reference (Units ) Status WBC, Total 11/20/2024 10:26:54 4.32 4.00-10.8 0 (K/uL) Final RBC 11/20/2024 10:26:54 4.51 3.85-5.15 (M/uL) Final Hemoglobin 11/20/2024 10:26:54 14.9 12.0-15.3 (g/dL) Final HCT 11/20/2024 10:26:54 43.4 36.0-45.2 (%) Final MCV 11/20/2024 10:26:54 96.2 81.5-97.5 (fL) Final MCH 11/20/2024 10:26:54 33.0 27.0-34.0 (pg) Final MCHC 11/20/2024 10:26:54 34.3 32.0-36.0 (g/dL) Final RDW 11/20/2024 10:26:54 12.0 11.5-15.5 (%) Final Platelets 11/20/2024 10:26:54 201 140-400 (K /uL) Final MPV 11/20/2024 10:26:54 10.9 6.6-11.1 ( fL) Final Performing Location [facility] [place] [address]
--- OUTSIDE RECORDS SUMMARY | 2024-11-30 06:00 | External Medical Summary ---
Author Name Unknown Address Unknown Organization [id number][facility] [address] Laboratory Report Ordering Provider Test Date Status DELORES MALHOTRA 11/20/2024 10:26:54 Final Observation Date Value Abnormality Reference (Units ) Status Albumin 11/20/2024 10:26:54 4.6 3.8-5.0 (g/dL) Final AST (Aspartate aminotransferase) 11/20/2024 10:26:54 19 10-35 (U/L) Final Alk Phos 11/20/2024 10:26:54 112 35-130 (U/L) Final ALT (Alanine aminotransferase) 11/20/2024 10:26:54 18 10-35 (U/L) Final Bilirubin, Total 11/20/2024 10:26:54 0.7 <=1.2 (mg/dL) Final Bilirubin, Direct 11/20/2024 10:26:54 0.2 0.0-0.3 (mg/dL) Final Protein 11/20/2024 10:26:54 6.8 6.0-8.3 (g/dL) Final Performing Location [facility] [place] [address]
--- OUTSIDE RECORDS SUMMARY | 2024-11-30 06:00 | External Medical Summary | Summary of Care ---
Author Name Unknown Organization [facility] Address [address] [place] [address] Phone [phone] Care Team Providers Care Buzzle Buffer Name Role Phone Jenn Pizarro MD Primary Care Provider + Reason for Visit * Reason Comments pre-op exam Back surgery at [facility] 11/30/2024 Encounter Details Date Type Department Care Team (Late st Contact Info) Description 11/20/2024 11:00 AM EDT Office Visit General Internal Medicine [facility] 200 [facility] [place] [address] Jenn [facility]ro MD [facility] [address] Preoperative general physical examination* Allergies Active Allergy Reactions Criticality Noted Date [...] as of this encounter (statuses as of 11/20/2024) Medications LORATADINE 10 MG PO TABS Take by mouth. 3 Active Spacer/Aero-Holdi ng Chambers (AEROCHAMBER PLUS FLOW VU) inhaler Use as directed with your inhaler. 1 Each 0 Active SUMAtriptan Succinate 25 MG Oral Tablet (Imitrex)Indicati ons:Intractable migraine with aura without status migrainosus Take 2 tablets at onset of migraine and one tablet every 2 hours as needed, not more than 5 tablets in 24 hours 6 Tablet 11 3 Active ProAir HFA 108 (90 Base) MCG/ACT Inhalation Aerosol SolutionIndicatio ns:Mild intermittent extrinsic asthma without complication Inhale 2 Puffs by mouth in the morning and 2 Puffs at noon and 2 Puffs in the evening and 2 Puffs before bedtime. 18 g 5 4 Active Lidocaine 5 % External Patch (Lidoderm) Place 1 Patch topically on the skin daily. 4 Active Acetaminophen 500 MG Oral Tablet (Tylenol) Take 2 Tablets by mouth every 6 hours as needed for Pain, Mild. Active Famotidine 20 MG Oral Tablet (Pepcid) Take 1 Tablet by mouth in the morning and 1 Tablet before bedtime. 90 Tablet 3 4 Active Metoprolol Succinate ER 25 MG Oral Tablet Extended Release 24 Hour (toPROL XL)Indications:SV T (supraventricular tachycardia) (HCC) Take 1 Tablet by mouth every evening. 90 Tablet 3 5 Active documented as of this encounter (statuses as of 11/20/2024) Active Problems Problem Noted Date Diagnosed Date [...] NONALLERGIC RHINITIS 01/04/2006 Deviated nasal septum 01/04/2006 Irritable bowel syndrome Endometriosis Allergic asthma documented as of this encounter (statuses as of 11/20/2024) Resolved Problems Problem Noted Date Diagnosed Date Resolved Date Asthma with severity to be determined 01/04/2006 02/08/2013 Overview (11/10/2015): ICD-10 update of inactive term ADVANCE DIRECTIVE INFORMATION 10/07/2005 06/04/2024 Overview (10/07/2005): No, Advance Directive brochure offered , patient declined. documented as of this encounter (statuses as of 11/20/2024) Immunizations Name Administration Dates Next Due COVID-19 mRNA, LNP-s, No Pre serve, 2-Dose Series ([employer]) 11/08/2020,10/18/2020 HEPATITIS B VACCINE, RECOMB, 20 MCG/ML, ADULT (HEPLISAV-B) 12/21/2022,11/23/2022 PPD 02/05/2008 Pneumococcal Conjugate Vacci ne, 20-valent ([id number]) 11/23/2022 Pneumococcal Polysaccharide PPV23 (Pneumovax) 06/18/2009 Seasonal [...] 0 08/01/1984 - 08/01/1988 Smokeless Tobacco: Never Tobacco Cessation:Counseling Given: Not Answered Comments:no passive smoke exposures at home Alcohol Use Standard Drinks/Week Comments [...] money to get more. 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 Not on file Not on f ile Not on file documented as of this encounter Last Filed Vital Signs Vital Sign Reading Time Taken Comments Blood Pressure 96/72 11/20/2024 11:17 AM EDT Pulse 60 11/20/2024 11:17 AM EDT Temperature 37.1 °C (98.8 °F) 11/20/2024 1 1:17 AM EDT Respiratory Rate 12 11/20/2024 11:1 7 AM EDT Oxygen Saturation - - Inhaled Oxygen Concentration - - Weight 72 kg (158 lb 11.2 oz) 11/20/2024 11:17 AM EDT Height 162.6 cm (5' 4") 11/20/2024 11:1 7 AM EDT reported by pateint Body Mass Index 27.24 11/20/2024 11:17 AM EDT documented in this encounter Progress Notes * Jenn Pizarro MD - 11/20/2024 11:30 AM EDT Images from the original note were not included. Pre-Operative Medical Evaluation Procedure Information Type of Surgery: Laminectomy L4-5, L5 S1. Referring Physician / Surgeon: Dr. Elver Lara with [facility]. Date of procedure: 11/30/24 History of Present Illness: Chronic lower backpain. Hx of GERD, HTN, Hemachromatosis, States has acidity an dhave to take PPI regulalry. Discussed to continue an hydrate well. Reviewed last upper endoscopy from 2022 and was normal. Denies any chestpain/sob/palpitation/swealling in the legs. Denies any cough/sob/wheezing/chestpain. Discussed rescheduling mammogram. Medical History Problem List: Trigger middle finger of left hand (04/20/2023) Pain of left hand (06/22/2022) Dupuytren's disease of palm (05/11/2022) Trigger index finger of left hand (12/30/2021) Sacroiliitis (HCC) (10/16/2019) PAT (paroxysmal atrial tachycardia) (HCC) (06/25/2019) Palpitations (06/25/2019) Hereditary hemochromatosis (HCC) (10/12/2018) S/P spinal surgery (04/05/2017) Cervical spinal stenosis (04/05/2017) Hemochromatosis (09/17/2014) Protruded cervical disc (08/21/2012) NONALLERGIC RHINITIS (01/04/2006) Asthma with severity to be determined (01/04/2006) Deviated nasal septum (01/04/2006) ADVANCE DIRECTIVE INFORMATION (10/07/2005) Irritable bowel syndrome Endometriosis Allergic asthma Current Medications Metoprolol Succinate ER 25 MG Oral Tablet Extended Release 24 Hour (toPROL XL), 25 mg, Oral, Daily 1900 Famotidine 20 MG Oral Tablet (Pepcid), 20 mg, Oral, BID(AM/PM) Acetaminophen 500 MG Oral Tablet (Tylenol), 1,000 mg, Oral, Q6H PRN Lidocaine 5 % External Patch (Lidoderm), 1 Patch, Transdermal, Q24H ProAir HFA 108 (90 Base) MCG/ACT Inhalation Aerosol Solution, 2 Puff, Inhalation, QID(AM/NOON/PM/HS) SUMAtriptan Succinate 25 MG Oral Tablet (Imitrex), Take 2 tablets at onset of migraine and one tablet every 2 hours as needed, not more than 5 tablets in 24 hours Spacer/Aero-Holding Chambers (AEROCHAMBER PLUS FLOW VU) inhaler, Use as directed with your inhaler. LORATADINE 10 MG PO TABS, Take by mouth. Allergies: Aspirin, Cephalosporins, Codeine, Diclofenac sodium, Gluten, Latex, Lubiprostone, Morphine and codeine, Omeprazole, Oxycodone, Penicillins, Prednisone, Protonix [pantoprazole sodium sesquihydrate], and Sulfa antibiotics Past Medical History: has a past medical history of Allergic asthma, Diaphragmatic hernia, Displacement of lumbar intervertebral disc without myelopathy, Endometriosis of other specified sites, Hemochromatosis (09/17/2014), Irritable bowel syndrome, MR (mitral regurgitation), PAC (premature atrial contraction), and PVC (premature ventricular contraction). Past Surgical History: has a past surgical history that includes remove gallbladder (1988); partial hysterectomy (2002); other (); other (2002); other (1971); other (1996); lumbar spine fusion, posterolateral (05/31/2006); EGD, Flexible, w/Biopsy (09/10/2009); Colonoscopy, Diagnostic (Rectum) (05/21/2011); Miscellaneous Order ([facility] Only) (1987); Hemorrhoidectomy, simple, 1 column (03/15/2013); Hemorrhoidectomy, internal w/ banding (03/15/2013); information (07/2014); Hand/Finger deep lesion removal,under 1.5cm (Left, 11/26/2014); revision of ankle joint (Left, 07/16/2015); Colonoscopy, Diagnostic (Rectum) (09/04/2018); Sacroiliac Joint Inject w/Guidance (01/08/2019); breast lesion,other,excision (1995); breast lesion,other,excision (Left, 2012); laparoscopy;rmv adnexal struct (Bilateral, 2020); tendon sheath incision, finger (Left, 02/10/2022); EGD, Flexible, Diagnostic (11/19/2022); tendon sheath incision, finger (Left, 05/11/2023); release palm contracture, open (Left, 05/11/2023); and removal of eyelid lesion (Left, 05/10/2024). Social History: reports that she quit smoking about 36 years ago. Her smoking use included cigarettes. She started smoking about 40 years ago. She has a 2 pack-year smoking history. She has never used smokeless tobacco. She reports that she does not drink alcohol and does not use drugs. Family History: family history includes Allergies in her brother, mother, and sister; Anxiety Disorder in her father; Arthritis in her mother; Asthma in her brother; Breast Cancer in her aunt (unspecified); Diabetesin her grandfather (maternal) and grandmother (maternal); Heart Disorder in her father and grandfather (maternal); Hypertension in her grandfather (maternal); Neurological Disorder in her mother. Anesthesia History Type of Anesthesia: General Endotracheal and Caudal block Anesthesia reaction: No History of surgical complications: None Personal history of venous thromboembolic disease: No Physical Exam BP 96/72 (BP Site: Right Arm, BP Position: Sitting, BP Cuff Size: Regular) | Pulse 60 | Temp 98.8 °F (37.1 °C) (Tympanic) | Resp 12 | Ht 5' 4" (1.626 m) Comment: reported by pateint | Wt 158 lb 11.2 oz (72 kg) | BMI 27.24 kg/m² | BSA 1.8 m² BP Readings from Last 3 Encounters: 11/20/24 96/72 11/12/24 98/64 08/15/24 122/76 Wt Readings from Last 3 Encounters: 11/20/24 158 lb 11.2 oz (72 kg) 11/12/24 158 lb (71.7 kg) 08/15/24 162 lb 4 oz (73.6 kg) BMI Readings from Last 3 Encounters: 11/20/24 27.24 kg/m² 11/12/24 26.91 kg/m² 08/15/24 27.63 kg/m² Ht Readings from Last 3 Encounters: 11/20/24 5' 4" (1.626 m) 05/08/24 5' 4.25" (1.632 m) 01/12/24 5' 4.25" (1.632 m) HEENT: PERRLA, EOMI, anicteric sclera, b/l tympanic membrane is pearly white, no erythema, no pharyngeal erythema, no lymphadenopathy, neck supple CVS: RRR, no murmurs, rubs or gallops, s1 s 2normal. RESP: clear to auscultation, no wheezing or crackles ABD: soft, NT/ND EXT: no edema, cyanosis, peripheral pulses palpable bilaterally No large joint swelling, no redness, range of motion normal. Skin normal. Gait normal. Mood stable No focal weakness Relevant lab results : CMP and CBC Surgical Risk Scoring Revised Cardiac Risk Index (RCRI) High-risk type of surgery? 0=No History of ischemic heart disease? 0=No History of congestive heart failure? 0=No History of cerebrovascular disease? 0=No Pre-operative treatment with insulin? 0=No Preoperative serum creatinine >2.0 mg/dL? 0=No Revised cardiac index score No Risk Factors- 0.4% (95% CI: 0.1-0.8) Functional and Surgical Risk Assessment Functional status is good (greater than 4 METS). Patient is low medical risk for the listed procedure. Assessment and Plan Preoperative general physical examination (Primary) - BASIC METABOLIC PANEL; Future; Expected date: 11/20/2024 Recent labs normal. EKG no major ST T changes. Avoid ASA, Nsaids,, fish oil one week before the procedure. Pt is clear for surgery. DVT prophylaxis as per spine surgeon. Incentive spirometry. Preoperative general physical examination documented in this encounter Nursing Notes * Adrián Hooper RN - 11/20/2024 11:20 AM EDT Chief Complaint Patient presents with pre-op exam Back surgery at [facility] 11/30/2024 documented in this encounter Plan of Treatment Upcoming Encounters Date Type Department Care Team (Late st Contact Info) Description 11/22/2024 11:00 AM EDT Office Visit Hematology/Oncology [facility] [address] [place] [phone] Delano Pizarro MD 200 [facility] [place] [address] 01/30/2025 7:00 AM EDT Imaging Radiology [facility] [address] [place] [phone] 05/13/2025 8:30 AM EDT Office Visit Cardiology, [facility] [address] [place] [address] Makayla Reynolds CRNP [address] [place] [address] 11/21/2025 9:20 AM EDT Office Visit General Internal Medicine [facility] [address] [facility] [place] [address] Jenn Pizarro MD 200 [facility] [place] [address] Scheduled Procedures Name Priority Associated Diagnoses Date/Ti me COLONOSCOPY FLEXIBLE PROXIMA L DIAGNOSTIC Recall Encounter for screening colonoscopy Health Maintenance Due Date Last Done Comments Depression Screening 1979 Cologuard 11/10/2012 Fecal Occult Blood Test 11/10/2012 Sigmoidoscopy 11/10/2012 Mammogram 12/09/2023 12/08/2022, 06/01, 11/06/2018, Additional history exists COVID-19 Vaccine ( season) 2024 11/08/2020, 10/18/2020 Influenza Vaccine (FLU shot) (Season Ended) 2025 06/25/2020, 06/25/2020, 07/19/2019, Additional history exists Diabetes Screening 11/15/2027 11/14/2024, 1 , 12/02/2021, Additional history exists Lipid Panel 11/24/2027 11/23/2022, 08/0 09/2020, 05/31/2018, Additional history exists DTap/Tdap Vaccines (4 - Td or Tdap) 05/30/2028 05/30/2018, 05/30/2018, 02/05/2008 Colonoscopy 09/04/2028 09/04/2018, 10/2018, 05/21/2011 Colorectal Cancer Screening 09/04/2028 Zoster Vaccines Completed 10/16/2019, 07/19/2019 Pneumococcal Vaccine: 50+ Years Completed 11/23/2022, 06/18/2009 Hepatitis B Vaccine Completed 12/21/2022, 3 HPV (Gardasil) Vaccine Aged Out No lo nger eligible based on patient's age to complete this topic MENINGOCOCCAL (MENACTRA/MENVEO) Aged Out No longer eligible based on patient's age to complete this topic Meningitis B Vaccine (Bexsero/Trumemba) Aged Out No longer eligible based on patient's age to complete this topic documented as of this encounter Medical Devices Not on filedocumented as of this encounter Visit Diagnoses Diagnosis Preoperative general physical examination- Primary Other specified pre-operative examination documented in this encounter Care Teams Buzzle Buffer Relationship Specialty Start Date End Date Jenn Pizarro MD 200 [facility] [place] [address] PCP - General Internal Medicine 09/21/12 documented as of this encounter
--- OUTSIDE RECORDS SUMMARY | 2024-11-30 06:00 | External Medical Summary | Summary of Care ---
Author Name Unknown Organization [facility] Address [address] [place] [address] Phone [phone] Care Team Providers Care Product Management Internship Name Role Phone Jenn Pizarro MD Primary Care Provider + Encounter Details Date Type Department Care Team (Late st Contact Info) Description 11/15/2024 Orders Only General Internal Medicine [facility] 200 [facility] [place] [id number] Jenn Pizarro MD 200 [place] [address] Allergies Active Allergy Reactions Criticality Noted Date [...] as of this encounter (statuses as of 11/15/2024) Medications LORATADINE 10 MG PO TABS Take [...] as of this encounter (statuses as of 11/15/2024) Active Problems Problem Noted Date Diagnosed Date [...] as of this encounter (statuses as of 11/15/2024) Resolved Problems Problem Noted Date Diagnosed Date Resolved Date Asthma with severity to be determined 01/04/2006 02/08/2013 Overview (11/10/2015): ICD-10 update of inactive term ADVANCE DIRECTIVE INFORMATION 10/07/2005 06/04/2024 Overview (10/07/2005): No, Advance Directive brochure offered , patient declined. documented as of this encounter (statuses as of 11/15/2024) Immunizations Name Administration Dates Next Due COVID-19 mRNA, LNP-s, No Pre serve, 2-Dose Series ([employer]) 11/08/2020,10/18/2020 HEPATITIS B VACCINE, RECOMB, 20 MCG/ML, ADULT (HEPLISAV-B) 12/21/2022,11/23/2022 PPD 02/05/2008 Pneumococcal Conjugate Vacci ne, 20-valent ([id number]) 11/23/2022 Pneumococcal Polysaccharide PPV23 (Pneumovax) 06/18/2009 Seasonal [...] Team (Late st Contact Info) Description 11/20/2024 10:30 AM EDT Laboratory [facility] [employer] [address] [place] [address] [phone] [place] [address] 11/20/2024 11:00 AM EDT Office Visit [facility] [address] [place] [address] Jenn Pizarro MD [address] [place] [address] 11/22/2024 11:00 AM EDT Office Visit Hematology/Oncology [facility] J[facility] [address] [place] [address] [phone] Delano Pizarro MD 200 [place] [address] Scheduled Procedures Name Priority Associated Diagnoses Date/Ti [...] 07/19/2019, Additional history exists Diabetes Screening 05/08/2027 11/14/2024, 1 , 12/02/2021, Additional history exists [...] Procedure Name Priority Date/Time Associated Diagnosis Comments CHEMISTRY-OUTSIDE Routine 11/14/2024 documented in this encounter Results * CHEMISTRY-OUTSIDE (11/14/2024) Not all results display below - see scan for full detail OUTSIDE LAB (SEE SCANNED REPORT) Comment:SCAN INCLUDES: CBCD, PT/INR, PTT, BMP, HGB A1C, UA CREATININE 0.76 0.6 - 1.2 MG/DL OUTSIDE LAB (SEE SCANNED REPORT) EGFR 91.34 ML/MIN OUTSIDE LA B (SEE SCANNED REPORT) POTASSIUM 4.3 3.5 - 5.1 MMOL/L OUTSIDE LAB (SEE SCANNED REPORT) GLUCOSE 97 70 - 99 MG/DL OUTSIDE LAB (SEE SCANNED REPORT) HOURS FASTING OUTSID E LAB (SEE SCANNED REPORT) TRIGLYCERIDES-OU TSIDE LAB OUTSIDE LAB (SEE SCANNED REPORT) CHOLESTEROL-OUTS BHAKTI LAB OUTSIDE LAB (SEE SCANNED REPORT) HDL-OUTSIDE LAB OUTS BHAKTI LAB (SEE SCANNED REPORT) CHOL/HDL RATIO-OUTSIDE LAB OUTSIDE LAB (SEE SCANNED REPORT) LDL (CALCULATED)-OUT SIDE LAB OUTSIDE LAB (SEE SCANNED REPORT) LDL (DIRECT MEASURE)-OUTSIDE LAB OUTSIDE LAB (SEE SCANNED REPORT) HEMOGLOBIN, [id number] LAB 5.1 4.5 - 5.6 % OUTSIDE LAB (SEE SCANNED REPORT) PHOSPHORUS-OUTSI DE LAB OUTSIDE LAB (SEE SCANNED REPORT) PTH-OUTSIDE LAB OUTS BHAKTI LAB (SEE SCANNED REPORT) MICROALBUMIN RATIO-OUTSIDE LAB OUTSIDE LAB (SEE SCANNED REPORT) PROTEIN, UA-OUTSIDE LAB NEGATIVE NEGATIVE OUTSIDE LAB (SEE SCANNED REPORT) HGB 14.7 12.0 - 16.0 G/DL OUTSIDE LAB (SEE SCANNED REPORT) 11/14/2024 us Marco Raya MD LABORATORY Final Result OUTSIDE LAB (SEE SCANNED REPORT) documented in this encounter Care Teams Product Management Internship Relationship Specialty Start Date End Date Jenn Pizarro MD [address] [place] [address] PCP - General Internal Medicine 09/21/12 documented as of this encounter
--- OUTSIDE RECORDS SUMMARY | 2024-11-30 06:00 | External Medical Summary | Summary of Care ---
Author Name Unknown Organization [facility] Address [address] [place] [address] Phone [phone] Care Team Providers Care Track Repair Supervisor Name Role Phone Jenn Pizarro MD Primary Care Provider + Reason for Visit * Reason Comments Follow Up 1 year follow up Encounter Details Date Type Department Care Team (Latest Contact Info) Description 11/22/2024 11:00 AM EDT Office Visit Hematology/Oncology [facility] [address] [facility] [place] [address] Delano iPzarro MD [address] [place] [address] Hereditary hemochromatosis (HCC)* Allergies Active Allergy Reactions Criticality Noted Date [...] as of this encounter (statuses as of 11/22/2024) Medications LORATADINE 10 MG PO TABS Take [...] 24 Hour (toPROL XL)Indications:SV T (supraventricular tachycardia) ([facility]) Take 1 Tablet by mouth every evening. 90 Tablet 3 5 Active documented as of this encounter (statuses as of 11/22/2024) Active Problems Problem Noted Date Diagnosed Date [...] as of this encounter (statuses as of 11/22/2024) Resolved Problems Problem Noted Date Diagnosed Date Resolved Date Asthma with severity to be determined 01/04/2006 02/08/2013 Overview (11/10/2015): ICD-10 update of inactive term ADVANCE DIRECTIVE INFORMATION 10/07/2005 06/04/2024 Overview (10/07/2005): No, Advance Directive brochure offered , patient declined. documented as of this encounter (statuses as of 11/22/2024) Immunizations Name Administration Dates Next Due COVID-19 mRNA, LNP-s, No Pre serve, 2-Dose Series ([place]UTO) 11/08/2020,10/18/2020 HEPATITIS B VACCINE, RECOMB, 20 MCG/ML, ADULT (HEPLISAV-B) 12/21/2022,11/23/2022 PPD 02/05/2008 Pneumococcal Conjugate Vacci ne, 20-valent ([id number]) 11/23/2022 Pneumococcal Polysaccharide PPV23 (Pneumovax) 06/18/2009 Seasonal [...] Sign Reading Time Taken Comments Blood Pressure 103/64 11/22/2024 10:54 AM EDT Pulse 71 11/22/2024 10:54 AM EDT Temperature 36.3 °C (97.3 °F) 11/22/2024 10:54 AM E DT Respiratory Rate - - Oxygen Saturation 95% 11/22/2024 10:54 AM EDT Inhaled Oxygen Concentration - - Weight 72 kg (158 lb 11.2 oz) 11/22/2024 10:54 A M EDT Height 161.9 cm (5' 3.75") 11/22/2024 10:54 AM E DT Body Mass Index 27.45 11/22/2024 10:54 AM EDT documented in this encounter Progress Notes * Delano Pizarro MD - 11/22/2024 11:00 AM EDT Hematology/Oncology Outpatient Clinic note [facility] [address] [place] [address] Name: Ani Atkins Date: 12/02/2021 CHIEF COMPLAINT: [...] with the MRI of the liver at [facility] as she had a panic attack during [...] her in the office. She says that she is going for lumbar spine surgery at [facility] in about 1 weektime. She had previous back surgery about 19 years back. Overall she is doing well, no nausea no vomiting, no new GI symptoms, chronic symptoms in the left hand, (stiffness). Current weight around 158 lb, ambulates well, good ECOG PS 0. Lower back pain present. Past Medical History: Diagnosis Date Allergic asthma [...] comments: no passive smoke exposures at home Vaping Use Vaping status: Never Used Substance and Sexual Activity Alcohol use: No [...] to animals and smoke occasionally in the [facility]. Entered by: Hilario Long MD 01/04/2006 Social Needs Financial Resource Strain: Not on file Food Insecurity: No Food Insecurity (12/21/2022) Hunger Vital Sign Worried About Running Out of Food in the Last Year: Never true Ran Out of Food in the Last Year: Never true Transportation Needs: Not on file Social Connections: Not on file Housing Stability: Not on file Past Surgical History: Procedure Laterality Date BREAST LESION,OTHER,EXCISION 1996 right Breast Excision, benign tumor/cyst BREAST LESION,OTHER,EXCISION Left 2013 Fibroadenoma COLONOSCOPY, DIAGNOSTIC (RECTUM) 05/21/2011 internal hemorrhoids COLONOSCOPY, DIAGNOSTIC (RECTUM) 09/04/2018 normal bx/COLONOSCOPY FLEXIBLE PROXIMAL DIAGNOSTIC [facility]GD, FLEXIBLE, DIAGNOSTIC 11/19/2022 normal bx / ESOPHAGOGASTRODUODENOSCOPY (EGD), FLEXIBLE, TRANSORAL, DIAGNOSTIC performed by Mak Benitez MD at [facility] EGD, FLEXIBLE, W/BIOPSY 09/10/2009 pathology--mild gastritis, mild chronic inflammation likely due to acid reflux HAND/FINGER DEEP LESION REMOVAL,UNDER 1.5CM Left 11/26/2014 EXCISION TUMOR HAND DEEP performed by Shane Tejeda MD at [facility] HEMORRHOIDECTOMY, INTERNAL W/ BANDING 03/15/2013 HEMORRHOIDECTOMY LIGATURE SIMPLE BANDING performed by Alyssia Babcock MD at [facility] HEMORRHOIDECTOMY, SIMPLE, 1 COLUMN 03/15/2013 HEMORRHOIDECTOMY EXTERNAL AND INTERNAL SIMPLE performed by Alyssia Babcock MD at [facility] INFORMATION 07/2014 lumpectomy LAPAROSCOPY;RMV ADNEXAL STRUCT Bilateral 2020 LUMBAR SPINE FUSION, POSTEROLATERAL 05/31/2006 MISCELLANEOUS ORDER ([facility] ONLY) 1987 right knee tendon repair OTHER 1979' Left knee surgery OTHER 2002 Right elbow surgery OTHER 1971 left foot surgery OTHER 1996 left breast exc., benign PARTIAL HYSTERECTOMY 2002 endometriosis RELEASE PALM CONTRACTURE, OPEN Left 05/11/2023 FASCIOTOMY PALMAR OPEN PARTIAL performed by Mikey Llanos MD at [facility] REMOVAL OF EYELID LESION Left 05/10/2024 LLL, Dr. Marino REMOVE GALLBLADDER 1988 REVISION OF ANKLE JOINT Left 07/16/2015 Ankle Joint Arthroplasty SACROILIAC JOINT INJECT W/GUIDANCE 01/08/2019 INJECTION SACROILIAC JOINT performed by Nahun Moon DO at [facility] TENDON SHEATH INCISION, FINGER Left 02/10/2022 TRIGGER FINGER RELEASE performed by Mikey Llanos MD at [facility] TENDON SHEATH INCISION, FINGER Left 05/11/2023 TRIGGER FINGER RELEASE performed by Mikey Llanos MD at [facility] Family History Problem Relation Name Age of Onset Allergies Mother chronic sinusitis [...] wash off Lubiprostone amitiza SOB/shakiness/vomiting Morphine And Codeine lorcet and codeine Omeprazole Hives, Nausea/vomiting and [...] directed with your inhaler. 1 Each 0 SUMAtriptan Succinate 25 MG Oral Tablet (Imitrex) Take 2 tablets at onset of migraine and one tablet every 2 hours as needed, not more than 5 tablets in 24 hours 6 Tablet 11 ProAir HFA 108 (90 Base) MCG/ACT Inhalation Aerosol Solution Inhale 2 Puffs by mouth in the morningand 2 Puffs at noon and 2 Puffs in the evening and 2 Puffs before bedtime. 18 g 5 Lidocaine 5 % External Patch (Lidoderm) Place 1 Patch topically on the skin daily. Acetaminophen 500 MG Oral Tablet (Tylenol) Take 2 Tablets by mouth every 6 hours as needed for Pain, Mild. Famotidine 20 MG Oral Tablet (Pepcid) Take 1 Tablet by mouth in the morning and 1 Tablet before bedtime. 90 Tablet 3 Metoprolol Succinate ER 25 MG Oral Tablet Extended Release 24 Hour (toPROL XL) Take 1 Tablet by mouth every evening. 90 Tablet 3 No current facility-administered medications for this visit. OBJECTIVE: BP 103/64 (BP Site: Left Arm, BP Position: Sitting, BP Cuff Size: Regular) | Pulse 71 | Temp 36.3 °C (97.3 °F) (Tympanic) | Ht 1.619 m (5' 3.75") | Wt 72 kg (158 lb 11.2 oz) | SpO2 95% | BMI 27.45 kg/m² | BSA 1.8 m² PHYSICAL EXAM: General Appearance: Normal - Healthy [...] -alkaline phosphatase around 150, normal other LFT. Blood workup done on 11/20/2024: - Normal LFT, Alkaline phosphatase 112 - Ferritin --> 75 - WBC 4300, H&H of 14.9/40.4, platelet count of 201,000. MRI of the lumbar spine on 10/18/2024: - Multilevel DJD. IMPRESSION: 57-year-old female, a case of hemochromatosis, [...] blurring of vision, she was seen at [facility] ER, reviewed hospital records, she had MRI of the brain without intravenous contrast which was reported to be negative. (05/21/2023). Her alkaline phosphatase has remained on the higher side around 150 range for the last 2 years. Hassome nonspecific generalized body ache but no focal bone pain. No fracture. No fall. Now for the last 1 year or so, alkaline phosphatase has remained in the normal range. I reviewed her blood workup done recently, Ferritin level increased to around 75, we could considerfor phlebotomy but she says she is going for lumbar spine surgery at [facility] in 1 week and she may have blood loss during that time Would like to hold the phlebotomy at this time, she will continue to have a blood workup every 3 monthly and then have phlebotomy if the Ferritin level is above 50. Will see her in about [address] Delano Pizarro Hem/Onc (This note was completed using the dictation program Fluency Direct. As such, there may be misspellings word substitutions, or other variations that should not change the essence of the clinical content of this encounter note. If there is need for further clarification, please direct questions to the provider listed above.) documented in this encounter Nursing Notes * Marylou Tatum CMA - 11/22/2024 10:55 AM EDT Patient identifed by name and birthdate Do you have any concerns about pain management for today's visit? No Living Will or Advance Directive for Health Care as noted on the problem list. [facility] is a way you can talk to your provider on line through e-mail. Would you like to sign up? I can activate it for you? ALREADY ACTIVE Filed Vitals: 11/22/24 1054 BP: 103/64 Pulse: 71 Temp: 36.3 °C (97.3 °F) TempSrc: Tympanic SpO2: 95% Weight: 72 kg (158 lb 11.2 oz) Height: 1.619 m (5' 3.75") Patient was instructed to not get up [...] Care Team (Late st Contact Info) Description 01/30/2025 7:00 AM EDT Imaging Radiology [facility] 1st [facility] [address] [place] [address] 02/21/2025 9:00 AM EDT Laboratory Laboratory [facility] [address] [place] [phone] [facility] [address] [place] [address] 05/13/2025 8:30 AM EDT Office Visit Cardiology, [facility] [address] [place] [phone] Makayla Reynolds CRNP [address] [place], [place] [address], [place] [address] 11/19/2025 7:00 AM EDT Laboratory Laboratory [facility] [address] [facility] [place] [phone] El[facility] [address] [facility] [place] [address] 11/21/2025 9:20 AM EDT Office Visit General Internal Medicine [facility] [place] [address] [facility] [place] [address] Jenn Pizarro MD [address] [facility] [place] [address] 11/26/2025 3:00 PM EDT Office Visit Hematology/Oncology [facility] [address] [facility] [place] [phone] Delano Pizarro MD [address] [facility] [place] [address] Scheduled Procedures Name Priority Associated Diagnoses Date/Ti [...] hemochromatosis documented in this encounter Care Teams Track Repair Supervisor Relationship Specialty Start Date End Date Jenn Pizarro MD [address] [place] [address] PCP - General Internal Medicine 09/21/12 documented as of this encounter
--- OUTSIDE RECORDS SUMMARY | 2024-11-30 06:00 | External Medical Summary | Summary of Care ---
Author Name Unknown Organization [facility] Address [address] [place] [address] Phone [phone] Care Team Providers Care Continuity Tester Name Role Phone Jenn Pizarro MD Primary Care Provider + Reason for Visit * Reason Comments Outpatient Testing Encounter Details Date Type Department Care Team (Latest Contact Info) Description 11/20/2024 10:30 AM EDT Laboratory Laboratory [facility] [address] [place] [phone] [place], [address] [place] [address] Hereditary hemochromatosis (HCC); Hemochromatosis Allergies Active Allergy Reactions Criticality Noted Date [...] mRNA, LNP-s, No Pre serve, 2-Dose Series ([facility]) 11/08/2020,10/18/2020 HEPATITIS B VACCINE, RECOMB, 20 MCG/ML, ADULT (HEPLISAV-B) 12/21/2022,11/23/2022 PPD 02/05/2008 Pneumococcal Conjugate Vacci ne, 20-valent ([id number]) 11/23/2022 Pneumococcal Polysaccharide PPV23 (Pneumovax) 06/18/2009 Seasonal [...] 11:00 AM EDT [facility] [address] [place] [phone] Delano Pizarro MD [address] [place] [address] 01/30/2025 7:00 AM EDT Imaging Radiology [facility] 1st [facility] [address] [place] [phone] 05/13/2025 8:30 AM EDT Office Visit Cardiology, [facility] [address] [place] [phone] Makayla Reynolds CRNP [address] [place] [address] 11/21/2025 9:20 AM EDT Office Visit [facility] [place] [address] [facility] [place] [address] Jenn Pizarro MD [address] [facility] [place] [address] Pending Results Name Type Priority Associated Diagnoses Date /Time FERRITIN Lab Routine Hereditary hemochromatosis (HCC) Hemochromatosis 11/20/2024 10:26 AM EDT Scheduled Procedures Name Priority Associated [...] Date/Time Associated Diagnosis Comments DIFFERENTIAL, AUTOMATED STAT 11/20/2024 10:26 AM EDT Hereditary hemochromatosis (HCC) Hemochromatosis HEPATIC FUNCTION PANEL Routine 11/20/2024 10:26 AM EDT Hereditary hemochromatosis (HCC) Hemochromatosis CBC STAT 11/20/2024 10:26 AM EDT Hereditary hemochromatosis (HCC) Hemochromatosis CBC STAT 11/20/2024 10:26 AM EDT Hereditary hemochromatosis (HCC) Hemochromatosis documented in this encounter Results * DIFFERENTIAL, AUTOMATED (11/20/2024 10:26 AM EDT) WBC 4.32 4.00 - 10.80 K/uL 11/20/2024 10:31 AM EDT [facility] 56-02 Neutrophils % 56.0 40.0 - 75.0 % 11/20/2024 10:31 AM EDT [facility] 56-02 Lymphocytes % 35.0 18.0 - 42.0 % 11/20/2024 10:31 AM EDT [facility] 56-02 Monocytes % 7.2 1.0 - 11.0 % 11/20/2024 10:31 AM EDT [facility] 56-02 Eosinophils % 1.6 0.0 - 6.0 % 11/20/2024 10:31 AM EDT [facility] 56-02 Basophils % 0.2 0.0 - 2.0 % 11/20/2024 10:31 AM EDT [facility] 56-02 Absolute Neutrophils 2.42 1.80 - 7.70 K/uL 11/20/2024 10:31 AM EDT [facility] 56- Absolute Lymphocytes 1.51 1.00 - 4.80 K/ul 11/20/2024 10:31 AM EDT [facility] 56- Absolute Monocytes 0.31 0.00 - 1.10 K/uL 11/20/2024 10:31 AM EDT [facility] 56- Absolute Eosinophils 0.07 0.00 - 0.70 K/uL 11/20/2024 10:31 AM EDT [facility] 56- Absolute Basophils 0.01 0.00 - 0.20 K/uL 11/20/2024 10:31 AM EDT [facility] 56- Blood Venous blood specimen / Unknown Venipuncture / Unknown 11/20/2024 10:26 AM EDT 11/20/2024 10:26 AM EDT us Delano Pizarro MD LAB BLOOD ORDERABLES Final Res ult [facility] [address] [place] [address] * CBC (11/20/2024 10:26 AM EDT) WBC 4.32 4.00 - 10.80 K/uL 11/20/2024 10:31 AM EDT [facility] 56- RBC 4.51 3.85 - 5.15 M/uL 11/20/2024 10:31 AM EDT [facility] 56 HGB 14.9 12.0 - 15.3 g/dL 11/20/2024 10:31 AM EDT [facility] 56- HCT 43.4 36.0 - 45.2 % 11/20/2024 10:31 AM EDT [facility] 56- MCV 96.2 81.5 - 97.5 fL 11/20/2024 10:31 AM EDT [facility] 56- MCH 33.0 27.0 - 34.0 pg 11/20/2024 10:31 AM EDT [facility] 56- MCHC 34.3 32.0 - 36.0 g/dL 11/20/2024 10:31 AM EDT [address] RDW 12.0 11.5 - 15.5 % 11/20/2024 10:31 AM EDT [address] PLT 201 140 - 400 K/uL 11/20/2024 10:31 AM EDT [address] MPV 10.9 6.6 - 11.1 fL 11/20/2024 10:31 AM EDT [address] Blood Venous blood specimen / Unknown Venipuncture / Unknown 11/20/2024 10:26 AM EDT 11/20/2024 10:26 AM EDT us Delano Pizarro MD LAB BLOOD ORDERABLES Final Res ult [address] [place] [address] * HEPATIC FUNCTION PANEL (11/20/2024 10:26 AM EDT) Albumin 4.6 3.8 - 5.0 g/dL 11/20/2024 12:08 PM EDT [address] AST 19 10 - 35 U/L 11/20/2024 12:08 PM EDT [address] Alkaline Phosphatase 112 35 - 130 U/L 11/20/2024 12:08 PM EDT [address] ALT 18 10 - 35 U/L 11/20/2024 12:08 PM EDT [address] Bilirubin, Total 0.7 <=1.2 mg/dL 11/20/2024 12:08 PM EDT [address] Bilirubin, Direct 0.2 0.0 - 0.3 mg/dL 11/20/2024 12:08 PM EDT [address] Protein 6.8 6.0 - 8.3 g/dL 11/20/2024 12:08 PM EDT [facility] 56 Blood Venous blood specimen / Unknown Venipuncture / Unknown 11/20/2024 10:26 AM EDT 11/20/2024 10:26 AM EDT us Delano Pizarro MD LAB BLOOD ORDERABLES Final Res ult [facility] 56-02 [address] [place] [address] documented in this encounter Visit Diagnoses Diagnosis Hereditary hemochromatosis (HCC) Hereditary hemochromatosis Hemochromatosis Other hemochromatosis documented in this encounter Care Teams Continuity Tester Relationship Specialty Start Date End Date [facility] [address] [facility] [address] PCP - General Internal Medicine 09/21/12 documented as of this encounter
--- OUTSIDE RECORDS SUMMARY | 2024-11-30 06:00 | External Medical Summary ---
Author Name Unknown Address Unknown Organization [id number]:[facility] [address] Laboratory Report Ordering Provider Test Date Status DELORES MALHOTRA 11/20/2024 10:26:54 Final Observation Date Value Abnormality Reference (Units ) Status SYNC LEUKOCYTES IN BLOOD BY AUTOMATED COUNT 11/20/2024 10:26:54 4.32 4.00-10.80 (K/uL) Final Segs 11/20/2024 10:26:54 56.0 40.0-75.0 (%) Final Lymphs % 11/20/2024 10:26:54 35.0 18.0-42.0 (%) Final Monos 11/20/2024 10:26:54 7.2 1.0-11.0 (%) Final Eosinophils 11/20/2024 10:26:54 1.6 0.0-6.0 (%) Final Basos 11/20/2024 10:26:54 0.2 0.0-2.0 (%) Final Absolute Segs 11/20/2024 10:26:54 2.42 1.80-7.70 (K/uL) Final Lymphs, absolute 11/20/2024 10:26:54 1.51 1.00-4.80 (K/ul) Final Monos, Abs 11/20/2024 10:26:54 0.31 0.00-1.10 (K/uL) Final Eos, Abs 11/20/2024 10:26:54 0.07 0.00-0.70 (K/uL) Final Basos, Abs 11/20/2024 10:26:54 0.01 0.00-0.20 (K/uL) Final Performing Location [facility] [address]
--- OUTSIDE RECORDS SUMMARY | 2024-11-30 06:00 | External Medical Summary ---
Author Name Unknown Address Unknown Organization [id number]:[facility] [address] [place] [address] Laboratory Report Ordering Provider Test Date Status DELORES MALHOTRA 11/20/2024 10:26:54 Final Observation Date Value Abnormality Reference (Units ) Status Ferritin 11/20/2024 10:26:54 75 13-150 (ng /mL) Final Postmenopausal women have hi gher ferritin levels than pre-menopausal women. The above reference interval is based on pre-menopausal women. Performing Location [facility] - [address] [place] [address]
[2024-11-30] MEDS: LR 15ML/HR IV SCH (06:17)
[2024-11-30] MEDS: LR 60ML/HR IV SCH (06:18)
[2024-11-30] MEDS: VANCOMYCIN HCL 1,000 MG/270 ML BAG IV SCH (06:19)
[2024-11-30] MEDS ORDERED: LIDOCAINE 2% 2 ML VIAL/AMP(20MG/ML) INFIL ONE (06:55)
[2024-11-30] MEDS ORDERED: PROPOFOL IV EMULSION 10 MG/ML 20 ML VIAL IV ONE (06:55)
[2024-11-30] MEDS ORDERED: fentaNYL citrate PF 100 MCG/2 ML VIAL ONE (06:55)
[2024-11-30] MEDS ORDERED: ONDANSETRON INJ 2 MG/ML 2 ML VIAL ONE ×2 (06:55→11:58)
[2024-11-30] MEDS ORDERED: DEXAMETHASONE SOD INJ 4 MG/ML VIAL ONE (06:55)
[2024-11-30] MEDS ORDERED: MIDAZOLAM HCL 1 MG/ML 2ML VIAL ONE ×2 (06:55→07:00)
[2024-11-30] MEDS ORDERED: ATROPINE SULFATE 0.1 MG/ML 10ML SYR IV PRN (07:03)
[2024-11-30] MEDS ORDERED: diphenhydrAMINE 50 MG/ML VIAL IV PRN (07:03)
[2024-11-30] MEDS ORDERED: ONDANSETRON INJ 2 MG/ML 2 ML VIAL IV PRN ×2 (07:03→13:13)
[2024-11-30] MEDS ORDERED: ePHEDrine sulfate 50 MG/ML AMP IV PRN (07:03)
[2024-11-30] MEDS ORDERED: HYDROmorphone INJ 2 MG/ML SYR/VIAL IV PRN (07:03)
--- NOTE | 2024-11-30 07:25 | History & Physical Bridge Note ---
Date of Service November 30, 2024 History & Physical Bridge Note I have examined the patient, reviewed the History & Physical and in the interval since the performance of the History & Physical I have noted the following changes of clinical significance: no changes noted Plan for TLIF L4-5, continued numbness right L5/S1 dermatomes
[2024-11-30] MEDS ORDERED: diphenhydrAMINE 50 MG/ML VIAL ONE (08:23)
[2024-11-30] MEDS ORDERED: ROCURONIUM BROMIDE 10 MG/ML 5 ML VIAL IV ONE (08:35)
[2024-11-30] MEDS ORDERED: PHENYLEPHRINE 100MCG/ML 5ML SYR ONE ×2 (09:21→12:41)
[2024-11-30] MEDS ORDERED: ePHEDrine sulfate 50 MG/5 ML SYR ONE (09:59)
[2024-11-30] MEDS ORDERED: PROPOFOL IV EMULSION 10 MG/ML 100 ML VIAL IV ONE (11:25)
[2024-11-30] MEDS ORDERED: SUCCINYLCHOLINE 100MG/5ML SYR IV ONE (11:39)
[2024-11-30] MEDS ORDERED: SUGAMMADEX SODIUM 200 MG/2 ML VIAL IV ONE (11:42)
[2024-11-30] MEDS ORDERED: HYDROmorphone INJ 2 MG/ML SYR/VIAL ONE (11:56)
[2024-11-30] MEDS ORDERED: SODIUM CHLORIDE 0.9% PF INJ 10 ML VIAL ONE (11:56)
[2024-11-30] MEDS ORDERED: DexMEDEtomidine HCL IV 100 MCG/ML VIAL IV ONE (12:05)
[2024-11-30] MEDS: BUPIVACAINE 0.5 % 5 MG/1 ML MPF 30ML VIAL ONE ×2 (12:48→13:01)
[2024-11-30] MEDS: VANCOMYCIN HCL 1000MG/20ML VIAL ONE ×2 (12:48→12:49)
[2024-11-30] MEDS: FLOSEAL HEMOSTATIC MATRIX 10ML TOP ONE (12:50)
--- NOTE | 2024-11-30 13:06 | Post Operative Brief Note ---
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 Post-Op Diagnosis: (1) Lumbar spondylosis (2) Cyst of lumbar facet joint (3) Lumbar stenosis without neurogenic claudication (4) Lumbar radicular pain (5) Adjacent segment disease of lumbar spine with history of fusion procedure I identified the patient and participated in the time-out.: Yes Procedure Operation Date: 11/30/24 07:30 Actual Procedures p L4-L5 Transforaminal Lumbar Interbody Fusion, Removal L5-S1 Screws, CT Naviagation, Spinal Cord Monitoring(Not Applicable) - Marco Raya MD Surgeon Marco Raya MD Wet Process Miller Pako Mattson PA-C Estimated Blood Loss 250 Findings Consistent with Post-Op Diagnosis Specimens Specimen Description: No specimen per surgeon Drains Christiano Drain (15fr with evacuator bulb) and Haywood Catheter Anesthesia Type General Complications none Extended case due to equipment change/possible contamination Disposition Disposition: Recovery Room
[2024-11-30] MEDS ORDERED: ACETAMINOPHEN 1,000 MG/100 ML VIAL IV PRN (13:13)
[2024-11-30] MEDS ORDERED: LORazepam 2 MG/1 ML VIAL IV PRN (13:13)
[2024-11-30] MEDS ORDERED: ONDANSETRON 4 MG OD TAB PO PRN (13:13)
[2024-11-30] MEDS ORDERED: hydrOXYzine HCl 25 MG TAB PO PRN (13:13)
[2024-11-30] MEDS ORDERED: FAMOTIDINE 20 MG TAB PO PRN (13:13)
[2024-11-30] MEDS ORDERED: METOCLOPRAMIDE HCL INJ 5 MG/ML 2 ML VIAL IV PRN (13:13)
[2024-11-30] MEDS ORDERED: bisacodyL 10 MG SUPP PR PRN (13:13)
[2024-11-30] MEDS ORDERED: PROMETHAZINE 12.5 MG/50.5 ML BAG IV PRN (13:13)
[2024-11-30] MEDS ORDERED: MAGNESIUM HYDROXIDE SUSP 30 ML UDC PO PRN (13:13)
[2024-11-30] MEDS ORDERED: DO NOT ADMINISTER PNEUMOCOCCAL VACCINE PRN (13:13)
[2024-11-30] MEDS ORDERED: NALOXONE HCL 0.4 MG/1 ML VIAL/CARP IV PRN (13:13)
[2024-11-30] MEDS ORDERED: HYDROmorphone INJ 0.5 MG/0.5 ML SYR IV PRN (13:13)
[2024-11-30] MEDS ORDERED: HYDROCODONE/ACETAMOPHEN 5/325MG TAB PO PRN (13:13)
[2024-11-30] MEDS ORDERED: SOD PHOSPHATE/SOD BIPHOSPHATE ENEMA 132 ML BTL PR PRN (13:13)
[2024-11-30] MEDS ORDERED: ALUMINUM/MAGNESIUM SUSP 30 ML UDC PO PRN (13:13)
[2024-11-30] MEDS ORDERED: DO NOT ADMINISTER FLU VACCINE PRN (13:13)
--- NOTE | 2024-11-30 13:17 | Operative Report ---
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 I identified the patient and participated in the time-out.: Yes Procedure Operation Date: 11/30/24 07:30 Actual Procedures p L4-L5 Transforaminal Lumbar Interbody Fusion with posterior fusion (45361) Removal L5-S1 Screws, Instrumentation L4-S1 (80068) Insertion Interbody Spacer for Fusion L4-5 (07243) CT Navigation for Spinal Instrumentation (19709) Allograft and Autograft for Spinal Fusion Surgeon Marco Raya MD Hadoop Analyst Pako Mattson PA-C Estimated Blood Loss 250 Findings Consistent with Post-Op Diagnosis Specimens None Drains Christiano Anesthesia Type General Complications none Disposition Disposition: Recovery Room Indications Patient was met in the office and found to have intractable radicular pain despite appropriate conservative care. She had adjacent segment disease above a prior lumbar interbody fusion done years ago, risks and benefits of proceeding with extension of the fusion up to the L4 level versus continue conservative care were had in the office. All risks and benefits were documented in our office note, patient elected to proceed with surgery given failure of conservative care. Description of Procedure Patient was brought to the operating room where general anesthesia was induced. She was placed in the prone position on the Pratik spine table, Haywood catheter were placed, SCDs for DVT prophylaxis and neuromonitoring leads were applied. Patient was prepped and draped in the usual sterile fashion. Verbal timeout performed identifying the patient by name date of and verifying the correct procedure. Skin was incised over her previous lumbar incision with 10 blade scalpel, Bovie electrocautery was used to dissect down to the lumbodorsal fascia. Fascia was split midline of the spinous processes and subperiosteal dissection was carried out to expose the L4 lamina as well as her previous L5 and S1 pedicle screws, as well as the L4 transverse process and posterior lateral L5-S1 fusion mass. High-speed bur was used to free the previous pedicle screw instrumentation from some bone overgrowth. Pedicle screws were removed using the [employer] system screwdrivers. The wound was thoroughly irrigated. At this point it was noted that there was a fly in the operating room. Given concern for contamination of the instrumentation, the wound was thoroughly irrigated with Betadine and saline irrigation, vancomycin was placed in the wound. The wound was covered with Ioban. Sterile drape was then placed over the patient. All of the instrumentation and implants that had been previously opened were then removed from the room. The fly was killed and removed. Once there was no further risk of contamination entirely new sets of instrumentation, Isbell stands, burs, suction, navigation equipment and implants were opened to maintain sterility. I explained to the that this was extending the case by several hours however necessary to maintain sterility. I then began with instrumenting the spine. Spinous process frame was attached to the L5 spinous process. [employer] O-arm was brought in and an intraoperative CT scan was performed. The images were uploaded to the [employer] Pass navigation unit for intraoperative Stealth navigation. Using a navigated awl I recannulated the pedicle screws at L5 and S1 bilater ally. I increased the diameter by 1 mm putting 7.5 mm diameter screws in the sacrum, 6.5 mm diameter screws and L5. Using a high-speed navigated bur I cannulated the pedicle tracts at L4 bilaterally. Navigated awl was then used followed by a navigated tap. 6.5 mm diameter pedicle screws were placed at L4. Pedicle screws were stimulated by neuromonitoring with no evidence of breach. The O-arm was brought back in and a repeat intraoperative CT scan was performed, the images were uploaded to the in room viewer. I personally verified good position of all pedicle screw instrumentation. I then began the decompression. Osteotome was used to remove the inferior articular process of L4 bilaterally. High-speed bur was used to thin the L4 lamina and identify the ligamentum flavum beneath. Using a Kerrison rongeur I removed the remaining lamina bone. Ligamentum flavum was split midline with a nerve hook, Arnold elevator was used to protect the dura and the ligamentum flavum between L4 and L5 was removed completely. There was considerable facet hypertrophy creating lateral recess stenosis. Right-sided L4-5 facet joints were undercut with a Kerrison rongeur using the Kyleigh to protect the nerve structures. Left L4-5 facet joint was found to have a cyst arising, this was dissected off of the dura and the facet joint was resected completely on this side to decompress the exiting nerve root. There is now excellent decompression of bilateral traversing L5 nerve roots and thecal sac. My assignment desk assistant then retracted the traversing L5 nerve root and exiting L4 nerve root on the left side. Disc was identified, annulotomy was made with a 15 blade scalpel. I then used a series of pituitaries, curettes, to perform as complete of a discectomy as possible. The inferior endplate of L4 and superior endplate of L5 were identified and a side scraping curette was used to remove any remaining cartilage and obtain bleeding bone within the disc space. The disc space was then packed with a mixture of morselized autograft bone from the laminectomy as well as allograft bone research laboratory specialist. This was packed into the disc space followed by an expandable interbody spacer from [employer]. The spacer was placed under navigation and found to be in good position. The cage was expanded to achieve good endplate contact. Motors were run before and after placing the interbody spacer at L4-5 with no change in amplitude. Hemostasis was obtained using bipolar electrocautery. The remaining posterior facet joint at L4-5 on the right as well as the L4 transverse processes bilaterally and L5 transverse process fusion mass bilaterally were decorticated. The posterior lateral gutters were then packed with a mixture of the remaining autograft bone harvested from the laminectomy, bone graft extenders and allograft bone material to encourage posterolateral fusion from L4-L5. Preformed lumbar rods were then placed within the tulip heads of the pedicle screws from L4-L5 bilaterally. Setscrews were placed and final tightened. Final x-rays were obtained showing instrumentation in good position. Subfascial drain was placed exiting out through the skin. The wound was then closed in layers with 0 strata fix suture in the fascia, running STRATAFIX suture for the subcuticular layer and jessica in the skin. Drain was sewn in place. Sterile dressing applied, drain attached to a suction and the patient was taken to PACU in stable condition. I attest to the content of the Intraoperative Record and any orders documented therein. Any exceptions are noted below.
[2024-11-30] MEDS ORDERED: VANCOMYCIN CONSULT ACTIVE PRN (13:29)
--- NOTE | 2024-11-30 13:51 | Anesthesiology Progress Note ---
Date of Service November 30, 2024 Anesthesia Post Procedure Vital Signs Vital Signs: Temp Pulse Pulse Resp BP Pulse Ox O2 Del Method 11/30/24 13:45 62 12 97/60 L 100 Oxymask 11/30/24 13:35 65 14 96/62 L 100 Oxymask 11/30/24 13:25 82 16 99/58 L 100 Oxymask 11/30/24 13:19 36 C L 78 14 88/57 L 97 Oxymask 11/30/24 06:05 36.4 C L 79 18 121/77 98 Room Air O2 Flow Rate 11/30/24 13:45 2 11/30/24 13:35 4 11/30/24 13:25 4 11/30/24 13:19 6 11/30/24 06:05 Pain Intensity Lower Back: Pain Intensity: 6 Transfer of Care Handoff Completed per policy Notes Mental Status: alert / awake / arousable and participated in evaluation Patient Amnestic to Procedure: Yes Nausea / Vomiting: adequately controlled Pain: adequately controlled Airway Patency, RR, SpO2: stable & adequate BP & HR: stable & adequate Hydration State: stable & adequate Anesthetic Complications: no major complications apparent and Pt Satisfied with anesthetic care
--- NOTE | 2024-11-30 14:32 | Fluoroscopy Report ---
FL lumbar spine 2-3V CLINICAL HISTORY: L4-L5 LUMBER INTERBODY FUSION REMOVAL L5-S1 COMPARISON STUDY: Lumbar spine CT of same day FLUOROSCOPY TIME: 45.1 seconds FLUOROSCOPY IMAGES: 4 EXPOSURE DOSE: 29.93 mGy FINDINGS: Posterior interbody bri and screw fusion hardware is noted at L4-S1 along with discectomy a t these levels. Retractors are seen in the posterior tissues. Note that the images were submitted fol lowing completion of the surgery. IMPRESSION: Fluoroscopic assistance as above. ACT 112: Negative or not required by law. Electronically signed by: Shmuel Oquendo M.D. 11/30/2024 2:31 PM
[2024-11-30] MEDS: fentaNYL citrate PF 100 MCG/2 ML VIAL IV PRN (15:35)
[2024-11-30] MEDS: PROMETHAZINE HCL 6.25 MG in SODIUM CHLORIDE 0.9% 50 ML IV PRN (15:37)
[2024-11-30] MEDS ORDERED: ALBUTEROL HFA 8 GM INHALER INH PRN (16:36)
[2024-11-30] MEDS: traMADol HCL 50 MG TABLET PO PRN (16:53)
[2024-11-30] MEDS: PROMETHAZINE HCL INJ 25 MG/ML 1 ML VIAL ONE (16:59)
[2024-11-30] MEDS: fentaNYL citrate PF 100 MCG/2 ML VIAL ONE (16:59)
[2024-11-30] MEDS: LACTATED RINGER'S 1,000 ML IV SCH (17:13)
[2024-11-30] MEDS: dexAMETHasone 10 MG in SYRINGE 0 ML IV SCH (17:16)
[2024-11-30] MEDS: tiZANidine HCL 4 MG TABLET PO PRN (18:08)
[2024-11-30] MEDS: VANCOMYCIN HCL 1,000 MG in SODIUM CHLORIDE 0.9% 250 ML IV SCH (20:30)
--- NOTE | 2024-11-30 21:08 | Hospitalist Consultation ---
Date of Consultation November 30, 2024 Assessment & Plan (1) S/P spinal surgery: This is a 59yo F with a PMH of hemochromatosis, asthma, PAT, lumbar radiculopathy and other medical problems listed below who is POD 0 s/p L4-L5 Transforaminal Lumbar Interbody Fusion with posterior fusion, removal L5-S1 Screws etc by Dr. Raya. POD 0 s/p L4-L5 Transforaminal Lumbar Interbody Fusion with posterior fusion, removal L5-S1 Screws etc by Dr. Raya Per ortho for pain control, wound care, anticoagulation and activities Monitor H&H (pre-op hgb 14.7, EBL 250ml), continue incentive spirometry, PT/OT when appropriate (2) Postoperative hypotension: BP 89/59, asymptomatic Baseline BP on lower side per chart review, 100/60 NSS bolus now, monitor BP (3) Paroxysmal atrial tachycardia: Hold evening Toprol dose given hypotension above (4) Hemochromatosis: Follows with Dr. Pizarro Ferritin level elevated at 75 pre-surgery but held off on phlebotomy due to anticipated blood loss from procedure Due to repeat blood work in 3 mo and plan for phlebotomy at that time PRN (5) Left bundle branch block (LBBB): Chronic, no changes on pre-op ECG compared to previous (6) Asthma: Stable, albuterol inh PRN DVT Ppx: SCDs PCP: [facility] Dispo: Observation med/surg. Discharge per primary service Patient seen in collaboration with Dr. Hernandez. Please see addendum. I spent a total of 60 minutes coordinating, documenting, and providing care for this patient excluding time spent in the performance of separately billed services or time spent by another provider/QHP. Thank you for this consultation. We will follow the patient with you during their hospital stay. You can reach a member of the [facility] Hospitalist Team 21/02 via [employer]. Supervising Physician Co-Signing Physician Notes IM ATTENDING : Patient seen and examined. History obtained from patient and records. Concur with salient points upon review of preceding documentation by Ms. Natividad Meng PA-C. I take responsibility for plan of care below. Final Assessment and Recommendations as follows : Postop hypotension History lumbar surgery PSVT/PVCs on beta-chris Bronchial asthma, stable IBS, constipation predominant, patient refusing postop MiraLAX order due to bad reaction in the past. 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 SCDs as per postop orders I spent a total of 20 minutes coordinating, documenting, and providing care for this patientexcludingtime spent by another provider/QHP. Thank you very much for this consultation. Dr. Cope will follow patient's progress. Text document was generated using [employer] voice recognition software. It may contain grammatical or spelling errors. Kindly contact undersigned for clarification of any documentation item in question. History of Present Illness Reason for Consultation: post op med mgmt Attending Physician: Marco Raya MD History of Present Illness This is a 59yo F with a PMH of hemochromatosis, asthma, PAT, lumbar radiculopathy and other medical problems listed below who is POD 0 s/p L4-L5 Transforaminal Lumbar Interbody Fusion with posterior fusion, removal L5-S1 Screws etc by Dr. Raya. Feeling well post-operatively. Some surgical site discomfort in lower back but muscle spasms have resolved. No lightheadedness, CP, SOB, N/V, abd pain, dysuria. Last bowel movement this AM. Follows with Dr. Pizarro for primary care. Allergies Allergy/AdvReac Type Severity Reaction Status Date / Time aspirin Allergy Severe Hives Verified 11/30/24 06:00 cephalexin Allergy Severe Difficulty Verified 11/30/24 06:00 Breathing, Hives Cephalosporins Allergy Severe Difficulty Verified 11/30/24 06:00 Breathing, Hives diclofenac Allergy Severe Hives Verified 11/30/24 06:00 latex Allergy Severe Hives Verified 11/30/24 06:00 Penicillins Allergy Severe Hives, Verified 11/30/24 06:00 Gastrointestinal Upset adhesive Allergy Intermediate Hives Verified 11/30/24 06:00 omeprazole Allergy Intermediate Stomach Verified 11/30/24 06:00 Cramping, Chest Pains, Vomiting, Rash, Hives Sulfa (Sulfonamide Allergy Intermediate Rash Verified 11/30/24 06:00 Antibiotics) codeine AdvReac Severe Chest Verified 11/30/24 06:00 Pain, Vomiting oxycodone AdvReac Severe "Mental Verified 11/30/24 06:00 Switch" almond AdvReac Intermediate Gastrointestinal Verified 11/30/24 06:00 Upset asparagus AdvReac Intermediate Gastrointestinal Verified 11/30/24 06:00 Upset banana AdvReac Intermediate Gastrointestinal Verified 11/30/24 06:00 Upset cashew nut AdvReac Intermediate Gastrointestinal Verified 11/30/24 06:00 Upset coffee (Coffea arabica) AdvReac Intermediate Gastrointestinal Verified 11/30/24 06:00 Upset egg AdvReac Intermediate Gastrointestinal Verified 11/30/24 06:00 Upset garlic AdvReac Intermediate Gastrointestinal Verified 11/30/24 06:00 Upset phoebe AdvReac Intermediate Gastrointestinal Verified 11/30/24 06:00 Upset gluten AdvReac Intermediate Gastrointestinal Verified 11/30/24 06:00 Upset, Diarrhea lactose AdvReac Intermediate Gastrointestinal Verified 11/30/24 06:00 Upset lubiprostone AdvReac Intermediate Shakiness, Verified 11/30/24 06:00 vomiting morphine AdvReac Intermediate Gastrointestinal Verified 11/30/24 06:00 Upset, Vomiting mushroom AdvReac Intermediate Gastrointestinal Verified 11/30/24 06:00 Upset pantoprazole AdvReac Intermediate Gastrointestinal Verified 11/30/24 06:00 Upset, Chest Pain, Vomiting peanut AdvReac Intermediate Gastrointestinal Verified 11/30/24 06:00 Upset pineapple AdvReac Intermediate Gastrointestinal Verified 11/30/24 06:00 Upset polyethylene glycol 3350 AdvReac Intermediate sick Verified 12/01/24 04:03 [From Miralax] rye grass AdvReac Intermediate Gastrointestinal Verified 11/30/24 06:00 Upset Yeast AdvReac Intermediate (brewers Verified 12/01/24 01:18 yeast)Gastrointestinal Upset Home Medications Medication Instructions Recorded Confirmed Type albuterol sulfate 90 mcg/actuation 2 puff inhalation Q6H PRN 05/21/23 11/30/24 History aerosol inhaler Shortness Of Breath acetaminophen 500 mg tablet 1,000 mg PO .Q4-6H PRN Pain 06/11/24 11/30/24 History lidocaine 4 % topical patch 1 patch topical DAILY PRN Pain 11/06/24 11/30/24 History lidocaine 5 % topical cream 1 applic topical QID PRN Pain 11/06/24 11/30/24 History metoprolol succinate 25 mg 25 mg PO QPM 11/14/24 11/30/24 History tablet,extended release 24 hr loratadine 10 mg tablet 10 mg PO HS 11/30/24 11/30/24 History Patient History Medical History GERD (gastroesophageal reflux disease) Dupuytren contracture of both hands Paroxysmal atrial tachycardia Supraventricular tachycardia TMJ (temporomandibular joint disorder) pt denies clicking or locking, "a lot of grinding" as per patient Cracked tooth x2 "top right" unable to be fixed d/t patient can't sit in dental chair - as per patient Hypotension "normal, my top number can somtimes go into the 80's." as per patient - [facility] Cardiology Hemochromatosis [facility] Hem/Onc - unsure when last phlebotomy Hx of endometriosis s/p total hysterectomy Claustrophobia Ventricular tachycardia [facility] Cardiology Palpitations Left bundle branch block (LBBB) Hx of chest pain pt denies at this time - [facility] Cardiology Adjacent segment disease of lumbar spine with history of fusion procedure Hiatal hernia History of back problems has had branch blocks, ablations, and steriod injections IBS (irritable bowel syndrome) resolved - "its the food" intolerance as per patient Deviated nasal septum no repair Asthma PRN inhaler - seasonal Compression fracture L3-4 > no surgical intervention> fusion is below Mitral valve regurgitation Mild, noted on 2019 stress echo. Surgical History Hx of cardiac catheterization (06/2024) s Cardiology History of hand surgery bilat History of foot surgery x2, left History of cholecystectomy (1988) History of hemorrhoidectomy (03/2013) History of lumpectomy of both breasts "fibroadenomas" History of hysterectomy History of lumbar fusion Hardware present History of esophagogastroduodenoscopy (EGD) History of colonoscopy Nausea and vomiting after administration of anesthetic agent History of anesthesia reaction memory loss after a procedure done at [facility] > unsure of details History of dilatation and curettage [place] teeth extracted hx Hx of cervical spine surgery laser C5-C6 > Full ROM as per patient Hx of elbow surgery right History of arthroscopy bilateral knees History of ankle surgery bilateral Family History Mother Diabetes Grandfather Diabetes Social History Smoking Status: Never smoker Second Hand Exposure: No; Do You Dip or Chew Tobacco: No; Tobacco Cessation Education Requested by Patient: No Hx Alcohol Use: No Hx Substance Use: No Preferred Language: Tamazight Communication Ability: Effective Petal Cutter Required: No Beliefs That Will Affect Care: None Current Living Situation: Spouse current occupational status: employed Other Information That Helps Us Care for You: No Feels Safe at Home: Yes Safety Concerns: Feels Safe At This Time Assistive Devices: Glasses and Other Assistive Devices Comment: x4 Upper Dental Bonding Review of Systems Review of Systems: At least ten systems reviewed and negative except as noted in the HPI. Physical Exam Physical Exam: General Appearance: WD/WN, vitals as above, NAD, sitting up in bed, pleasant, conversing easily Head: normocephalic, atraumatic Eyes: normal inspection ENT: external ear and nose normal, oropharynx normal Neck: normal visual inspection Respiratory: normal respiratory effort, lungs clear to auscultation Cardiovascular: regular rate, rhythm, no BLE edema Abdomen/GI: normal bowel sounds, soft, nontender Extremities/Musculoskeletal: + Spinal dressing, + VIOLETTA drain, extremities motor strength 5/5 Neurologic: PERRL, CN's II-XI intact bilaterally and moves all extremities Psychiatric: A+Ox3, euthymic affect Skin: no rashes, normal color, warm/dry Results & Data Results & Data Vital Signs (Past 12 Hours) Vital Signs Temp Pulse Pulse Resp BP Pulse Ox O2 Del Method 11/30/24 20:02 36.9 C 75 18 89/59 L 96 Room Air 11/30/24 18:10 107/73 11/30/24 16:38 36.3 C L 67 16 99/66 L 99 Room Air 11/30/24 15:45 66 12 94/59 L 100 Nasal Cannula 11/30/24 15:15 82 20 101/58 L 94 Room Air 11/30/24 14:45 66 12 96/65 L 96 Room Air 11/30/24 14:30 78 14 93/62 L 98 Room Air 11/30/24 14:15 88 16 101/65 98 Room Air 11/30/24 14:00 36.4 C L 67 14 95/62 L 97 Room Air 11/30/24 13:45 62 12 97/60 L 100 Oxymask 11/30/24 13:35 65 14 96/62 L 100 Oxymask 11/30/24 13:25 82 16 99/58 L 100 Oxymask 11/30/24 13:19 36 C L 78 14 88/57 L 97 Oxymask O2 Flow Rate 11/30/24 20:02 11/30/24 18:10 11/30/24 16:38 11/30/24 15:45 2 11/30/24 15:15 11/30/24 14:45 11/30/24 14:30 11/30/24 14:15 11/30/24 14:00 11/30/24 13:45 2 11/30/24 13:35 4 11/30/24 13:25 4 11/30/24 13:19 6 Diagnostic Findings Lumbar Spine X-Ray 11/30/24 07:30 FL lumbar spine 2-3V CLINICAL HISTORY: L4-L5 LUMBER INTERBODY FUSION REMOVAL L5-S1 COMPARISON STUDY: Lumbar spine CT of same day FLUOROSCOPY TIME: 45.1 seconds FLUOROSCOPY IMAGES: 4 EXPOSURE DOSE: 29.93 mGy FINDINGS: Posterior interbody bri and screw fusion hardware is noted at L4-S1 along with discectomy at these levels. Retractors are seen in the posterior tissues. Note that the images were submitted following completion of the surgery. IMPRESSION: Fluoroscopic assistance as above. ACT 112: Negative or not required by law. Electronically signed by: Shmuel Oquendo M.D. 11/30/2024 2:31 PM
[2024-11-30 21:43] LABS: BUN Creatinine Ratio 17.6 (10-20); Calcium 7.9 mg/dl (8.6-10.3); Creatinine Clr Calc Pharmacy 88.3 ml/min; Magnesium 1.7 mg/dl (1.7-2.4); Potassium 4.3 mmol/L (3.5-5.1)
[2024-11-30 21:47] LABS: Hematocrit (blood only) 32.1 % (37.0-47.0); Hemoglobin 11.1 g/dl (12.0-16.0); Mean Corpuscular Hgb Conc 34.6 g/dL (32.0-36.0); Mean Corpuscular Volume 92.5 fL (80.0-100.0); Mean Platelet Volume 10.8 fL (9.4-12.4); Platelet Count 177 K/uL (130-400); RDW Coefficient of Variation 11.8 % (11.5-14.5); RDW Standard Deviation 39.6 fL (36.4-46.3); Red Blood Count 3.47 M/uL (4.20-5.40); White Blood Count 8.58 K/ul (4.8-10.8)
[2024-11-30] MEDS: SODIUM CHLORIDE 0.9% 1,000 ML IV ONE (22:13)
[2024-11-30 22:17] LABS: Immature Granulocytes # (auto) 0.06 K/uL (0.01-0.20); Immature Granulocytes % (auto) 0.7 %; Lymphocytes # (auto) 0.51 K/uL (1.20-3.40); Lymphocytes % (auto) 5.9 %; Monocytes # (auto) 0.14 K/uL (0.11-0.59); Monocytes % (auto) 1.6 %; Neutrophils # (auto) 7.87 K/uL (1.40-6.50); Neutrophils % (auto) 91.8 %; RBC Morphology Unremarkable
[2024-11-30 22:31] LABS: Appearance Urine Clear (Clear); Bacteria Urine Automated None Seen (None Seen); Bilirubin Urine Negative (Negative); Blood Urine Trace (Negative); Color Urine Yellow; Epithelial Cell Urine Auto 0-2 /hpf (0-2); Glucose Urine UA Negative (Negative); Ketones Urine 1+ (Negative); Leukocyte Esterase Urine Trace (Negative); Nitrite Urine Negative (Negative); Protein Urine Negative (Negative); RBC Urine Automated 0-2 /hpf (0-2); Specific Gravity Urine 1.017 (1.000-1.030); Urobilinogen Urine Negative (Negative); WBC Urine Automated 0-5 /hpf (0-5); pH Urine 5.5 (4.5-7.5)
[2024-11-30] MEDS: LACTATED RINGER'S 1,000 ML IV ONE (23:12)
[2024-11-30] MEDS: LORATADINE 10 MG TAB PO ONE (23:12)
[2024-12-01] MEDS: ACETAMINOPHEN 500 MG TAB PO PRN (00:04)
[2024-12-01] MEDS: LACTATED RINGER'S 1,000 ML IV ONE ×2 (01:52→03:38)
[2024-12-01 05:51] LABS: Hematocrit (blood only) 28.6 % (37.0-47.0); Hemoglobin 10.1 g/dl (12.0-16.0); Mean Corpuscular Hemoglobin 32.7 pg (25.0-34.0); Mean Corpuscular Hgb Conc 35.3 g/dL (32.0-36.0); Mean Corpuscular Volume 92.6 fL (80.0-100.0); Mean Platelet Volume 10.6 fL (9.4-12.4); Platelet Count 165 K/uL (130-400); RDW Coefficient of Variation 11.8 % (11.5-14.5); RDW Standard Deviation 39.8 fL (36.4-46.3); Red Blood Count 3.09 M/uL (4.20-5.40); White Blood Count 8.77 K/ul (4.8-10.8)
[2024-12-01] MEDS ORDERED: POLYETHYLENE (MIRALAX) 17 GM PACK PO SCH (06:00)
[2024-12-01 06:08] LABS: BUN Creatinine Ratio 16.7 (10-20); Creatinine Clr Calc Pharmacy 100.1 ml/min; Potassium 4.1 mmol/L (3.5-5.1)
[2024-12-01 06:12] LABS: Immature Granulocytes # (auto) 0.03 K/uL (0.01-0.20); Immature Granulocytes % (auto) 0.3 %; Lymphocytes % (auto) 6.8 %; Monocytes # (auto) 0.19 K/uL (0.11-0.59); Monocytes % (auto) 2.2 %; Neutrophils # (auto) 7.95 K/uL (1.40-6.50); Neutrophils % (auto) 90.7 %
--- NOTE | 2024-12-01 07:43 | Orthopedic Progress Note ---
Date of Service December 01, 2024 Assessment & Plan (1) S/P spinal surgery: She is POD 1 from hardware removal and lumbar interbody fusion. Has been hypotensive and hemoglobin 10.1 today but seems to be doing well. Hospitalist service following We will remove her catheter today. PT/OT, wbat Leave dressing and drain in place today. Will plan on dressing change and possible drain removal tomorrow (POD 2) Discharge planning: likely d/c home tomorrow if continuing to do well Discussed with Dr Raya. Subjective .59 year old patient POD 1 from hardware removal and lumbar interbody fusion with Dr Raya, doing well this morning. Pain is well controlled. Some cramping feeling in the right hip area, which was present preop, and paraesthesia in the right foot resolved. Has been hypotensive, but has been out of bed ambulating and to chair. She would like the salcedo catheter removed. Review of Systems All systems reviewed & are unremarkable except as noted in HPI & below. Physical Exam . alert and oriented. NAD. VSS, recent blood pressure 97/59 Dressing clean, dry, intact. Drain appears to be functioning appropriately. Drain output noted from the chart Able to do good straight leg raise bilaterally, good dorsiflexion, plantarflexion, EHL BLE. NVI Results & Data Results & Data Laboratory Results . Laboratory Results - last 24 hr 11/30/24 11/30/24 12/01/24 21:15 Unknown 00:42 WBC 8.58 RBC 3.47 L Hgb 11.1 L Hct 32.1 L MCV 92.5 MCH 32.0 MCHC 34.6 RDW Std Deviation 39.6 RDW Coeff of Twyla 11.8 Plt Count 177 MPV 10.8 Immature Gran % (Auto) 0.7 Neut % (Auto) 91.8 Lymph % (Auto) 5.9 Brown % (Auto) 1.6 Eos % (Auto) 0.0 Baso % (Auto) 0.0 Neut # (Auto) 7.87 H Lymph # (Auto) 0.51 L Brown # (Auto) 0.14 Eos # (Auto) 0.00 Baso # (Auto) 0.00 Immature Gran # (Auto) 0.06 RBC Morphology Unremarkable Sodium 137 Potassium 4.3 Chloride 106 Carbon Dioxide 23 Anion Gap 8 BUN 12 Creatinine 0.68 Est Cr Clr Drug Dosing 88.3 eGFR 101.52 BUN/Creatinine Ratio 17.6 Glucose 185 H Lactate 4.2 H* 4.1 H* Calcium 7.9 L Magnesium 1.7 Urine Color Yellow Urine Appearance Clear Urine pH 5.5 Ur Specific Herman 1.017 Urine Protein Negative Urine Glucose (UA) Negative Urine Ketones 1+ H Urine Blood Trace H Urine Nitrite Negative Urine Bilirubin Negative Urine Urobilinogen Negative Ur Leukocyte Esterase Trace H Urine WBC (Auto) 0-5 Urine RBC (Auto) 0-2 U Hyaline Cast (Auto) 3-5 H U Epithel Cells (Auto) 0-2 Urine Bacteria (Auto) None Seen 12/01/24 05:36 WBC 8.77 RBC 3.09 L Hgb 10.1 L Hct 28.6 L MCV 92.6 MCH 32.7 MCHC 35.3 RDW Std Deviation 39.8 RDW Coeff of Twyla 11.8 Plt Count 165 MPV 10.6 Immature Gran % (Auto) 0.3 Neut % (Auto) 90.7 Lymph % (Auto) 6.8 Brown % (Auto) 2.2 Eos % (Auto) 0.0 Baso % (Auto) 0.0 Neut # (Auto) 7.95 H Lymph # (Auto) 0.60 L Brown # (Auto) 0.19 Eos # (Auto) 0.00 Baso # (Auto) 0.00 Immature Gran # (Auto) 0.03 RBC Morphology Sodium 139 Potassium 4.1 Chloride 110 H Carbon Dioxide 25 Anion Gap 4 BUN 10 Creatinine 0.60 Est Cr Clr Drug Dosing 100.1 eGFR 104.63 BUN/Creatinine Ratio 16.7 Glucose 162 H Lactate 1.9 Calcium 8.0 L Magnesium Urine Color Urine Appearance Urine pH Ur Specific Herman Urine Protein Urine Glucose (UA) Urine Ketones Urine Blood Urine Nitrite Urine Bilirubin Urine Urobilinogen Ur Leukocyte Esterase Urine WBC (Auto) Urine RBC (Auto) U Hyaline Cast (Auto) U Epithel Cells (Auto) Urine Bacteria (Auto) Diagnostic Findings . PG Care Time/CCT Total # of Minutes Spent Total Time Spent with Patient: Total time spent is greater than 50% in coordination of care (as documented) at patient's floor/unit and/or counseling patient: Coding Level of Care Code 70396 Post Operative Follow-Up Diagnoses S/P spinal surgery Z98.890
[2024-12-01] MEDS: DOCUSATE SODIUM/SENNA 50/8.6MG TAB PO SCH (08:37)
--- NOTE | 2024-12-01 09:15 | XRay Report ---
Clinical history: Postoperative examination Technique: 2 views of the lumbar spine are submitted for review Comparison is made to the prior examination dated 10/18/2024 Findings: There has been interval extension of a spinal fusion, with an anterior and posterior fusion of L4-S1 now seen. A drainage catheter is seen with its tip of the spinal canal at the level of L4. There are surgical skin jessica posteriorly The lumbar vertebrae are in normal alignment with no listhesis seen. There are unchanged old compression fractures of T12 and L1. No new fracture is identified. The intervertebral disc spaces appear preserved. No focal osseous lesion is seen. The bowel gas pattern appears unremarkable. Impression: 1. Interval extension of spinal fusion, now L4-S1 2. Unchanged old T12 and L1 compression fractures Electronically signed by Mark Pat 12-01-2024 09:13 AM
--- NOTE | 2024-12-01 14:07 | Hospitalist Progress Note ---
Date of Service December 01, 2024 Assessment & Plan (1) S/P spinal surgery: Plan: This is a 59yo F with a PMH of hemochromatosis, asthma, PAT, lumbar radiculopathy and other medical problems listed below who is POD 0 s/p L4-L5 Transforaminal Lumbar Interbody Fusion with posterior fusion, removal L5-S1 Screws etc by Dr. Raya. POD 1 s/p L4-L5 Transforaminal Lumbar Interbody Fusion with posterior fusion, removal L5-S1 Screws etc by Dr. Raya Per ortho for pain control, wound care, anticoagulation and activities Monitor H&H (pre-op hgb 14.7, EBL 250ml), continue incentive spirometry, PT/OT when appropriate (2) Postoperative hypotension: Plan: BP 89/59, asymptomatic Baseline BP on lower side per chart review, 100/60 NSS bolus now, monitor BP Holding home metoprolol at this time- continue with parameters as ordered (3) Paroxysmal atrial tachycardia: Plan: Hold evening Toprol dose given hypotension above EKG noting sinus bradycardia- metoprolol ordered with parameters (4) Hemochromatosis: Plan: Follows with Dr. Pizarro Ferritin level elevated at 75 pre-surgery but held off on phlebotomy due to anticipated blood loss from procedure Due to repeat blood work in 3 mo and plan for phlebotomy at that time PRN (5) Left bundle branch block (LBBB): Plan: Chronic, no changes on pre-op ECG compared to previous (6) Asthma: Plan: Stable, albuterol inh PRN DVT Ppx: SCDs PCP: Ju[facility] Dispo: Observation med/surg. Discharge per primary service Thank you for this consultation. We will follow the patient with you during their hospital stay. You can reach a member of the [facility] Hospitalist Team 21/02 via [facility]. Admission and Anticipated Discharge Date Admission Date: November 30, 2024 Subjective Pt with episodes of palpitations notes her breathing exercises usally help later requesting metoprolol to help- however EKG noting sinus bradycardia- will hold Review of Systems Review of Systems: All systems reviewed & are unremarkable except as noted in Subjective Physical Exam Physical Exam: General: Alert, oriented. No acute distress HEENT: NC/AT CV: RRR, Resp: Breath sounds clear bilaterally, no increased effort of breathing Abdomen: Soft, nontender, nondistended Extremities: No edema in lower extremities bilaterally. Results & Data Results & Data Vital Signs (Past 12 Hours) Vital Signs Temp Pulse Resp BP Pulse Ox O2 Del Method 12/01/24 12:00 36.7 C 70 16 111/71 99 Room Air 12/01/24 07:51 36.5 C 79 16 97/59 L 95 Room Air 12/01/24 03:04 36.9 C 79 16 94/59 L 97 Room Air
[2024-12-01] MEDS: LORazepam 0.5 MG TAB PO PRN (16:21)
[2024-12-01] MEDS: METOPROLOL SUCC 25MG EXT REL TAB PO SCH (20:00)
[2024-12-01] MEDS: LORATADINE 10 MG TAB PO SCH (20:00)
[2024-12-01] MEDS: diphenhydrAMINE Capsule 25 MG CAP PO PRN (20:03)
--- NOTE | 2024-12-02 06:41 | Orthopedic Progress Note ---
Date of Service December 02, 2024 Assessment & Plan (1) S/P spinal surgery: POD 2 from hardware removal and lumbar interbody fusion. Pain controlled. Ice to cramping area posterior hip as this has helped her at home. Continue PT/OT Dressing change today. Will discuss drain management with Dr Raya. Output was about 80ml in 8 hour overnight shift. d/c planning: possibly home today. Discussed with patient and Dr Raya. She really wants to go home today, especially for dietary issues. Will have dressing changed today, leave drain in. Instructions will be given to her about emptying and measuring drain output every 8 hours. Call office tomorrow with drain information. Will send on antibiotics x 5 days. Subjective .59 year old patient POD 2 from hardware removal/lumbar interbody fusion with Dr Raya. Doing well. Not having much pain. Still mostly just the cramping feeling in the right posterior hip area. No paraesthesia. Therapy went well yesterday. Review of Systems All systems reviewed & are unremarkable except as noted in HPI & below. Physical Exam .alert and oriented. NAD Dressing clean, dry, intact. Drain in place Able to dorsiflex, plantarflex, EHL intact. Sensation intact to touch. Results & Data Results & Data Laboratory Results . Diagnostic Findings . PG Care Time/CCT Total # of Minutes Spent Total Time Spent with Patient: Total time spent is greater than 50% in coordination of care (as documented) at patient's floor/unit and/or counseling patient: Coding Level of Care Code 54492 Post Operative Follow-Up Diagnoses S/P spinal surgery Z98.890
[2024-12-02 07:03] VITALS: BP 96/60; PULSE 81; RESP 14; TEMP 98.4; O2SAT 95
[2024-12-02 09:04] LABS: Hematocrit (blood only) 27.1 % (37.0-47.0); Hemoglobin 9.3 g/dl (12.0-16.0); Immature Granulocytes # (auto) 0.07 K/uL (0.01-0.20); Immature Granulocytes % (auto) 0.6 %; Lymphocytes # (auto) 0.78 K/uL (1.20-3.40); Lymphocytes % (auto) 6.8 %; Mean Corpuscular Hemoglobin 32.5 pg (25.0-34.0); Mean Corpuscular Hgb Conc 34.3 g/dL (32.0-36.0); Mean Corpuscular Volume 94.8 fL (80.0-100.0); Mean Platelet Volume 10.9 fL (9.4-12.4); Monocytes % (auto) 3.5 %; Neutrophils # (auto) 10.21 K/uL (1.40-6.50); Neutrophils % (auto) 89.1 %; Platelet Count 161 K/uL (130-400); RDW Coefficient of Variation 12.2 % (11.5-14.5); RDW Standard Deviation 42.5 fL (36.4-46.3); Red Blood Count 2.86 M/uL (4.20-5.40); White Blood Count 11.46 K/ul (4.8-10.8)
[2024-12-02 09:21] LABS: Albumin Globulin Ratio 1.7 (0.9-2); Albumin Level 3.3 gm/dl (3.4-5.0); BUN Creatinine Ratio 18.6 (10-20); Bilirubin,Total 0.4 mg/dl (0.2-1.0); Calcium 8.1 mg/dl (8.6-10.3); Creatinine Clr Calc Pharmacy 85.8 ml/min; Phosphorus 2.9 mg/dl (2.5-4.9); Potassium 3.7 mmol/L (3.5-5.1); Total Protein 5.3 gm/dl (6.0-8.3)
--- NOTE | 2024-12-02 09:39 | Electrocardiogram Report ---
Test Reason : Blood Pressure : */* mmHG Vent. Rate : 57 BPM Atrial Rate : 57 BPM P-R Int : 132 ms QRS Dur : 80 ms QT Int : 432 ms P-R-T Axes : 38 44 41 degrees QTcB Int : 420 ms Sinus bradycardia Nonspecific T wave abnormality Abnormal ECG When compared with ECG of 13-Jun-2024 04:45, No significant change was found Confirmed by Shannan Null (Stevenson) on 12/02/2024 9:39:02 AM Referred By: Marco Raya Confirmed By: Shannan Null
--- NOTE | 2024-12-02 12:31 | Hospitalist Progress Note ---
Date of Service December 02, 2024 Assessment & Plan (1) S/P spinal surgery: Plan: This is a 59yo F with a PMH of hemochromatosis, asthma, PAT, lumbar radiculopathy and other medical problems listed below who is POD 0 s/p L4-L5 Transforaminal Lumbar Interbody Fusion with posterior fusion, removal L5-S1 Screws etc by Dr. Raya. POD 2 s/p L4-L5 Transforaminal Lumbar Interbody Fusion with posterior fusion, removal L5-S1 Screws etc by Dr. Raya Per ortho for pain control, wound care, anticoagulation and activities Monitor H&H (pre-op hgb 14.7, EBL 250ml), continue incentive spirometry, PT/OT when appropriate (2) Postoperative hypotension: Plan: BP 89/59, asymptomatic Baseline BP on lower side per chart review, 100/60 NSS bolus now, monitor BP Holding home metoprolol at this time- continue with parameters as ordered (3) Paroxysmal atrial tachycardia: Plan: Hold evening Toprol dose given hypotension above EKG noting sinus bradycardia- metoprolol ordered with parameters (4) Hemochromatosis: Plan: Follows with Dr. Pizarro Ferritin level elevated at 75 pre-surgery but held off on phlebotomy due to anticipated blood loss from procedure Due to repeat blood work in 3 mo and plan for phlebotomy at that time PRN (5) Left bundle branch block (LBBB): Plan: Chronic, no changes on pre-op ECG compared to previous (6) Asthma: Plan: Stable, albuterol inh PRN DVT Ppx: SCDs PCP: Juarez Dispo: Observation med/surg. Discharge per primary service Thank you for this consultation. Admission and Anticipated Discharge Date Admission Date: November 30, 2024 Subjective pt was seen before discharge Stated that she felt tired and sleepy from recent medication administration Otherwise denying acute concerns. Review of Systems Review of Systems: All systems reviewed & are unremarkable except as noted in Subjective Physical Exam Physical Exam: General: Alert, oriented. No acute distress HEENT: NC/AT CV: RRR, Resp: Breath sounds clear bilaterally, no increased effort of breathing Abdomen: Soft, nontender, nondistended Extremities: No edema in lower extremities bilaterally. Results & Data Results & Data Vital Signs (Past 12 Hours) Vital Signs Temp Pulse Pulse Resp BP Pulse Ox O2 Del Method 12/02/24 07:03 36.9 C 81 14 96/60 L 95 Room Air 12/02/24 00:41 72
--- NOTE | 2024-12-03 15:39 | Discharge Summary ---
Date of Service December 03, 2024 Admission HPI (Per Admitting) Patient is a 58-year-old female who comes in today for evaluation of severe right lower extremity radiculopathy as well as occasional left lower radiculopathy in an L5 dermatomal pattern. She reports the symptoms started about 3 months ago. She has trialed gabapentin however did not tolerate the medication and is weaned off, she has also been seeing a chiropractor as well as doing home exercise program since the flareup of her symptoms approximately 3 months ago. Reports at this time she is feels a grinding sensation in her back when she changes from seated to standing position which creates pain down the bilateral lower extremities. Pain in the right lower extremity is fairly constant. She was seen several weeks ago and sent for MRI, she is here for follow-up today. She does have a history approximately 19 years ago of L5-S1 interbody fusion. 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 Patient has multiple allergies to anti- inflammatory medications which appear quite severe so she has been unable to trial these medications. Plan Given the degenerative changes and obvious stenosis and compression of the nerve roots we discussed treatment options at this point. She has already exhausted conservative care so we discussed the possibility of an epidural injection versus surgical decompression and fusion given the advanced facet arthropathy, increased facet joint fluid and apparent facet cyst at L4-5. Patient states that she would rather proceed with definitive treatment to address the stenosis and degenerative changes of her facet joint and likely instability. We discussed removal of her prior L5-S1 instrumentation and a transforaminal lumbar interbody fusion with decompression and excision of the facet cyst and repeat instrumentation. We did also discuss the possibility of decompressive lerner inectomy at L4-5 however I explained concern for worsening of instability given the increased fluid signal in the facet joint as well as recurrence of the lumbar facet cyst. Patient agrees that she would like to proceed with the fusion option. We discussed surgical intervention at length, and the patient was informed that risks include but are not limited to: bleeding and possible need for blood transfusion, infection, blood clots to extremities or lungs, no relief of symptoms, dural tear, nerve injury, paralysis, weakness, pain, instrumentation failure, prolonged recovery, need for physical therapy or rehabilitation services, loss of bowel/bladder control, recurrent stenosis or disc herniation, need for more surgery, and in very rare instances even . We also discussed that there is risk of pseudarthrosis formation, failure of the fusion to occur which may increase chances of instrumentation failure or need for further surgery. We also discussed that fusing the spine puts the patient at risk for adjacent segment breakdown and possible need for future surgery, the risk is approximately 3-5% per year. The patient voiced understanding of the risks and benefits of surgery and elected to proceed. Patient will need to be evaluated by her av specialist, community specialist as well as primary care physician for preoperative screening. Otherwise we will plan to proceed with the above-mentioned surgery as soon as possible. Admission Exam (Per Admitting) GENERAL: Speech and cognition is intact. Mood and affect is appropriate. Does not appear in acute distress. HEAD: Normocephalic; atraumatic. NECK: Trachea is midline. CHEST: Regular chest respiration and excursion. EXTREMITIES: Distal sensation and pulses intact bilaterally. BACK: Diminished ROM.No midline or facet joint tenderness.Pain is worsened with spinal extension. + Right lumbosacral paraspinal and gluteal gluteal tenderness .Inspection/palpation demonstrates normal lumbar lordotic curvature. There is presence of a midline lumbosacral cicatrix, which appears well-healed and without evidence of erythema, drainage, or abnormal warmth. NEURO: CN II-XII grossly intact with no focal deficits noted. Mild antalgic gait. Awake, alert, and oriented x 3. Sensation intact to light touch of the bilateral L2-S1 dermatomes. Patellar Reflex R 2+L 2+ Achilles Reflex R 2+L 2+ Negative clonus bilaterally SKIN: No lesions, erythema, or rashes noted. LOWER EXTREMITIES: Positive straight leg raise on the right. R Hip flexion 4/5; hip extension 4-/5; knee extension 4/5; knee flexion 4-/5; ankle dorsiflexion 4/5; ankle plantar flexion 4/5; EHL 4/5 L Hip flexion 5/5; hip extension 5/5; knee extension 5/5; knee flexion 5/5; ankle dorsiflexion 5/5; ankle plantar flexion 5/5; EHL 5/5 Imaging: MRI of the lumbar spine was available for review today and interpreted personally. There is evidence of prior L5-S1 interbody fusion with good decompression. There is moderate to severe central canal and lateral recess stenosis at the L4-5 level above with at least moderate foraminal stenosis bilaterally. MRI report mentions a moderate degree of facet arthropathy however I disagree with this interpretation, there is severe facet hypertrophy and degenerative changes at this level. Fluid signal within the L4-5 facets measures at least 4.5 mm bilaterally suggestive of instability at this level. Also a left-sided synovial cyst is arising from the left L4-5 facet joint with contribution to the central canal and lateral recess stenosis. Advanced compression of the L5 traversing nerve root bilaterally. Principal Diagnosis Same as "Discharge Diagnosis" noted below under Discharge Instructions. Discharge Exam .alert and oriented. NAD Dressing clean, dry, intact. Drain in place Able to dorsiflex, plantarflex, EHL intact. Sensation intact to touch. Discharge Data Consultations 11/30/24 13:34 Consult Hospitalist Routine Procedures Performed Operation Date: 11/30/24 07:30 Actual Procedures p L4-L5 Transforaminal Lumbar Interbody Fusion, CT Naviagation, Spinal Cord Monitoring(Not Applicable) - Marco Raya MD s Removal L5-S1 Screws, (Not Applicable) - Marco Raya MD Ordered Studies 11/30/24 07:30 CT lumbar spine wo con Routine [place] lumbar spine 2-3V Routine Hospital Course (1) S/P spinal fusion: (2) Adjacent segment disease of lumbar spine with history of fusion procedure: Plan On November 30, 2024 Ani arrived at [facility] operating room and underwent removal of L5-S1 instrumentation, L4-5 transforaminal lumbar interbody fusion, with placement of L4-S1 posterior instrumentation without complications. Patient had general anesthesia for the procedure. Patient was admitted to the general orthopedic floor in stable condition postoperatively for pain control and mobilization with physical therapy; they safely and properly performed the ADL tasks demonstrated by PT/OT and met all goals. Pain was controlled with oral pain medication alone. Normal return of bowel and bladder function. They worked with therapy, vital signs were acceptable, no need for transfusion, deemed safe for discharge. Of note, the patient did continue to have drainage greater than 50 cc over the most recent 8-hour shift prior to discharge, and so the drain did remain in place. Patient was then discharged home in stable condition, with self-care and assistance from her . Patient will contact Dr. Raya's team in the orthospine clinic on Tuesday12/03/2024 to report drain output, and if less than 50 cc over an 8-hour period, she will be set up with a brief visit to remove the drain and place a new dressing. PG Care Time/CCT Total # of Minutes Spent Total Time Spent with Patient: Total time spent is greater than 50% in coordination of care (as documented) at patient's floor/unit and/or counseling patient: Discharge Plan Discharge Items Patient Disposition: Home - Self-Care Reason For Visit: Lumbar Spondylosis, Cyst of Lumbar Facet Joint Discharge Diagnosis: s/p lumbar fusion Activity: Per Instructions section Lifting: No more than 10 pounds Weightbearing: Full weightbearing Non-emergency contact: Surgeon Call non-emergency contact if: your pain is worsening, your temperature is above 101 and your wound has increased drainage Follow-up/Referrals: Jenn Pizarro MD [Primary Care Provider] - Marco Raya MD [Surgeon] - Diet: Regular Addtl Attending Provider Instructions: Instructions for FUSION Spine Surgery DO NOT TAKE ANY ANTI-INFLAMMATORY MEDICATIONS (MOTRIN, ALEVE, MOBIC, ETC.) IF YOU HAVE UNDERGONE A LUMBAR, THORACIC, OR CERVICAL FUSION DO NOT TAKE ANY HERBAL SUPPLEMENTS MEDICATIONS: You will be given prescriptions for the following: Oxycodone, Percocet or Hydrocodone - For breakthrough pain. Cyclobenzaprine (Flexeril), Valium (Diazepam), Tizanidine (Zanaflex), or Methocarbamol (Robaxin) For muscle spasms and back pain. Take these medications as needed. They will help the most during your recovery time. Senna-s and Miralax Senna-S twice daily, 17g packet of Miralax with water once daily while taking narcotics. These medications prevent constipation caused by the pain medications. Ondansetron (Zofran) For nausea. Cephalexin (Keflex) or Sulfamethoxazole/trimethoprim (Bactrim). Antibiotic. You are given IV antibiotics while in the hospital; you may or may not be given a prescription for home; this will be decided after surgery. Your pre-surgery prescription medications With the exception of anti- inflammatory medications, blood thinners (Coumadin, Plavix, Eliquis, Pradaxa, etc.), or narcotic pain medications, you may resume your home medications. For the above medications, you will be given specific instructions; you may resume blood thinners 3-4 days after surgery. ACTIVITIES: Walking Walking is mandatory. You need to walk at least once every hour while awake. Walking will help prevent blood clots in your legs and help prevent spasms in your back. Bending/twisting Limit bending at the waist, limit twisting and turning. You will be taught to "log roll" to get out of bed. Avoid athletic activities until further notice. Lifting Do NOT lift more than 5 lbs until further notice. Driving You may drive when you are no longer taking narcotic pain medications, can safely operate the brake/gas/clutch pedals, and can move your head/neck for visibility. Tobacco All tobacco products are strictly prohibited after surgery. Any use will dramatically increase your risk of complications. This includes vapor cigarettes, marijuana, nicotine patches and gums. Bracing/Cervical Collar There is no brace required for thoracic or lumbar surgery. If you have had a single level cervical fusion, you will be given a soft collar for comfort. Multiple level cervical fusions will receive a hard collar to be worn at all times, except for showering and hygiene, until follow up in clinic. Surgical Dressing Initial operative dressing is to stay on for 2 days; you may change it if it becomes saturated. From then on, change the dressing daily with dry gauze and paper tape. Continue to change dressing until there is no discharge. Once there is no discharge on the dressing, you may leave the incision open to air but make sure to keep it out of the sun. For supplies, stop by any local pharmacy. Any type of gauze dressing is acceptable. Do not put any ointments on the wound. You may shower 48 hours after your surgery. Cover the incision with Saran Wrap and tape the edges to prevent water from contacting the incision. If water contacts the incision, pat dry. No baths or submerging the incision until seen in the clinic at follow up appointment. Drain instructions: Leave drain in place. Empty the drain into a measuring cup and record the output for 8 hour period. Call office tomorrow 12/03 with drain results and further instructions. Next Appointment: If you do not already have one made, you will need to schedule an appointment to see Dr. Raya about 2 weeks after surgery. To schedule, please call [phone]. QUESTIONS Please contact the office with questions or concerns: [phone] If outside normal business hours, you will be connected with the on-call physician. Pending Studies at Discharge: No Stand-Alone Forms: My [facility], Pain - Opioid Pain Management, Smoking Cessation Medications and DC Order Prescriptions: New tizanidine 4 mg Tablet 4 mg PO Q8H PRN (Reason: muscle spasms) Qty: 90 1RF acetaminophen [Tylenol Extra Strength] 500 mg Tablet 1,000 mg PO Q8H Qty: 30 0RF ondansetron 4 mg Tablet,Disintegrating 4 mg PO Q6H PRN (Reason: nausea and vomiting) Qty: 30 0RF doxycycline hyclate 100 mg capsule 100 mg PO BID 5 Days Qty: 10 0RF Continued albuterol sulfate 90 mcg/actuation HFA aerosol inhaler 2 puff INHALATION Q6H PRN (Reason: Shortness Of Breath) metoprolol succinate 25 mg tablet extended release 24 hr 25 mg PO QPM loratadine 10 mg Tablet 10 mg PO HS Discontinued acetaminophen 500 mg Tablet 1,000 mg PO .Q4-6H PRN (Reason: Pain) lidocaine 5 % Cream 1 applic TOPICAL QID PRN (Reason: Pain) lidocaine 4 % adhesive patch,medicated 1 patch topical DAILY PRN (Reason: Pain) No Action tramadol 50 mg tablet 50 mg PO Q6H PRN (Reason: pain) Qty: 30 0RF Discharge Orders: Discharge Order (Routine); Ordered 12/02/24 Ordered By: Fausto Land/Other Patient Handouts: DVT Post Op Prevention, Pratik Araujo Drain Tube Dc, Post Op Drain Emptying Steps Admission Data Admit Date/Time: 11/30/24 13:13 Attending Provider: Marco Raya Admit Provider: Marco Raya Primary Care Provider: Jenn Pizarro Other Providers: Wily Hernandez Other Interventions: Discharge Summary Assessment (RN) Last Done: 12/02/24 09:41
== END 2024-12-02 12:05 | disposition home or self-care (01) ==
LOC: 3E 05:47 → ASU 05:47